=== PATIENT | male | born 1975 | race Caucasian/White ===

== ENCOUNTER 2018-04-01 13:50 | Inpatient (IN) | payer OTHER ==
[2018-04-01 16:18] VITALS: BMI 54.9
--- NOTE | 2018-04-01 17:35 | HP ---
CIWA Score Nausea/Vomitin Muscle Tremors: 3 Anxiety: 4-Mod. Anxious/Guarded Agitation: 1-Slight > Activity Paroxysmal Sweats: 4-Forehead w/Sweat Beads Orientation: 0-Oriented Tacttile Disturbances: 0-None Auditory Disturbances: 0-None Visual Disturbances: 3-Moderate Sensitivity Headache: 2-Mild CIWA-Ar Total Score: 20 - Admission Criteria OASAS Guidelines: Admission for Medically Managed Detox: Requires at least one of the followin. CIWA greater than 12 2. Seizures within the past 24 hours 3. Delirium tremens within the past 24 hours 4. Hallucinations within the past 24 hours 5. Acute intervention needed for co occurring medical disorder 6. Acute intervention needed for co occurring psychiatric disorder 7. Severe withdrawal that cannot be handled at a lower level of care (continued vomiting, continued diarrhea, abnormal vital signs) requiring intravenous medication and/or fluids 8. Admission ROS S - HPI Chief Complaint: "I'm Tired of This Life. I'm Tired of Getting Drunk and Using Alcohol and Drugs. I need to get My Life Together." Patient is here for Detox from Alcohol and Heroin. Allergies/Adverse Reactions: Allergies Allergy/AdvReac Type Severity Reaction Status Date / Time shellfish derived Allergy Intermediate Hives Verified 04/01/18 16:39 No Known Drug Allergies Allergy Verified 04/01/18 17:37 History of Present Illness: Patient is a 42 YO male here for Detox from Alcohol and Heroin. This is patient' s first Detox admission at [facility]. Patient had a previous Detox admission at [facility] ( [place], [place]) in 2018. Patient is currently a client at [facility] ([place], [place]). Daily Dose: 110 mg; Last Day Medicated: Today, 04/01/2018. VERIFICATION PENDING. [facility] I-Stop Registry Reviewed: No Controlled Substance Prescriptions noted for Patient over last 12 months. Exam Limitations: No Limitations - Ebola screening Have you traveled outside of the country in the last 21 days: No Have you had contact with anyone from an Ebola affected area: No Have you been sick,other than usual withdrawal symptoms: No Do you have a fever: No - Review of Systems Constitutional: Chills, Diaphoresis, Fever, Loss of Appetite, Malaise, Night Sweats, Changes in sleep, Unintentional Wgt. Loss (Lost approx. 32 lbs. over last 3 months.) EENT: reports: Blurred Vision Respiratory: reports: Shortness of Breath (Patient reprots that this Only Occurs When He is using Drugs.) GI: reports: Constipated, Nausea, Poor Appetite, Abdominal cramping : reports: No Symptoms Reported Musculoskeletal: reports: Joint Pain (Patient Reprots "Chronic Arthritis Pain of All Joints."), Joint Stiffness Integumentary: reports: No Symptoms Reported Neuro: reports: Headache, Tremors Endocrine: reports: No Symptoms Reported Hematology: reports: No Symptoms Reported Psychiatric: reports: Judgement Intact, Mood/Affect Appropiate, Orientated x3, Anxious Other Systems: Reviewed and Negative Patient History - Patient Medical History Hx Anemia: No Hx Asthma: Yes (Pt. Reports that this is exacerbated only when using drugs.) Hx Chronic Obstructive Pulmonary Disease (COPD): No Hx Cancer: No Hx Cardiac Disorders: No Hx Congestive Heart Failure: No Hx Hypertension: Yes (ON MEDS) Hx Hypercholesterolemia: No Hx Pacemaker: No HX Cerebrovascular Accident: No Hx Seizures: No Hx Dementia: No Hx Diabetes: Yes (TYPE II; ON MEDS) Hx Gastrointestinal Disorders: No Hx Liver Disease: No Hx Genitourinary Disorders: No Hx Sexually Transmitted Disorders: No Hx Renal Disease (ESRD): No Hx Thyroid Disease: No Hx Human Immunodeficiency Virus (HIV): No (Last Tested: 10/2017: NEGATIVE.) Hx Hepatitis C: No (Last Tested > 1 year ago: NEGATIVE.) Hx Depression: Yes (And Anxiety; Generally Exacerbated by Drug Use.) Hx Suicide Attempt: No (PATIENT DENIES CURRENT SI / HI.) Hx Bipolar Disorder: Yes (No Current Medication, Unable To Recall Names of Past Medication.) Hx Schizophrenia: No Other Medical History: DENIES. - Patient Surgical History Past Surgical History: Yes Hx Neurologic Surgery: No Hx Cataract Extraction: No Hx Cardiac Surgery: No Hx Lung Surgery: No Hx Breast Surgery: No Hx Breast Biopsy: No Hx Abdominal Surgery: Yes (gastric bypass- 09/2003) Hx Appendectomy: No Hx Cholecystectomy: Yes (09/2003) Hx Genitourinary Surgery: No Hx Section: No Hx Orthopedic Surgery: No Other Surgical History: DENIES. Anesthesia Reaction: No - PPD History Previous Implant?: No Documented Results: Positive w/o proof (Patient Completed a Full Course of Antibiotic Treatment in [id number].) Implanted On Prior [facility] Admission?: No PPD to be Administered?: No - Reproductive History Patient is a Female of Child Bearing Age (11 -55 yrs old): No (PATIENT IS MALE.) - Smoking Cessation Smoking history: Current every day smoker Have you smoked in the past 12 months: Yes Aproximately how many cigarettes per day: 20 Cigars Per Day: 0 Hx Chewing Tobacco Use: No Initiated information on smoking cessation: Yes 'Breaking Loose' booklet given: 04/01/18 (GIVEN ON UNIT.) - Substance & Tx. History Hx Alcohol Use: Yes Hx Substance Use: Yes Substance Use Type: Alcohol, Cocaine, Heroin, Marijuana Hx Substance Use Treatment: Yes (Detox Admission at [facility] ([place], [place]) in 2018.) - Substances Abused Alcohol Route: Oral Frequency: Daily Amount used: beer- 24oz- 15daily Age of first use: 14 Date of Last Use: 04/01/18 Heroin Route: Inhalation Frequency: Daily Amount used: 10bags Age of first use: 18 Date of Last Use: 04/01/18 Crack Route: Smoking Frequency: Daily Amount used: $ 100 Age of first use: 39 Date of Last Use: 03/31/18 Marijuana/Hashish Route: Smoking Frequency: Daily Amount used: 2-3 Blunts. Age of first use: 14 Date of Last Use: 03/31/18 Family Disease History - Family Disease History Family Disease History: Diabetes: Grandparent (Cardiac Disease.), Father (HTN; Cardiac Disease.), Mother (HTN; Cardiac Disease.), Heart Disease: Grandparent, Father, Mother Admission Physical Exam [facility] - Vital Signs Vital Signs: Vital Signs - 24 hr 04/01/18 16:17 Temperature 97.7 F Pulse Rate 86 Respiratory 20 Rate Blood Pressure 108/66 - Physical General Appearance: Yes: No Apparent Distress, Nourished, Appropriately Dressed , Tremorous, Sweating, Anxious HEENTM: Yes: Hearing grossly Normal, Normocephalic, Normal Voice, MARLON, Pharynx Normal Respiratory: Yes: Chest Non-Tender, Lungs Clear, No Respiratory Distress, No Accessory Muscle Use Neck: Yes: No masses,lesions,Nodules, Supple, Trachea in good position Breast: Yes: Breast Exam Deferred Cardiology: Yes: Regular Rhythm, Regular Rate, S1, S2 Abdominal: Yes: Normal Bowel Sounds, Non Tender, Soft, Protuberent Genitourinary: Yes: Within Normal Limits Back: Yes: Decreased Range of Motion Musculoskeletal: Yes: Gait Steady, Joint Stiffness Extremities: Yes: Normal Capillary Refill, Normal Range of Motion, Tremors Neurological: Yes: Fully Oriented, Alert, Normal Mood/Affect, Normal Response Integumentary: Yes: Normal Color, Dry, Warm Lymphatic: Yes: Within Normal Limits - Diagnostic (1) Alcohol dependence with uncomplicated withdrawal Current Visit: Yes Status: Acute (2) Methadone maintenance therapy patient Current Visit: Yes Status: Chronic (3) Cocaine dependence, uncomplicated Current Visit: Yes Status: Chronic (4) Cannabis dependence, uncomplicated Current Visit: Yes Status: Chronic (5) Nicotine dependence Current Visit: Yes Status: Chronic Qualifiers: Nicotine product type: cigarettes Substance use status: uncomplicated Qualified Code(s): F17.210 - Nicotine dependence, cigarettes, uncomplicated (6) Asthma Current Visit: Yes Status: Chronic Qualifiers: Asthma severity: mild Asthma persistence: intermittent Asthma complication type: uncomplicated Qualified Code(s): J45.20 - Mild intermittent asthma, uncomplicated (7) Hypertension Current Visit: Yes Status: Chronic Qualifiers: Hypertension type: essential hypertension Qualified Code(s): I10 - Essential (primary) hypertension (8) History of bipolar disorder Current Visit: Yes Status: Suspected (9) Type II diabetes mellitus Current Visit: Yes Status: Chronic Qualifiers: Diabetes mellitus middle or intermediate school principal insulin use: without middle or intermediate school principal use Diabetes mellitus complication status: with unspecified complications Qualified Code(s) : E11.8 - Type 2 diabetes mellitus with unspecified complications Cleared for Admission S - Detox or Rehab [facility] Level of Care: Medically Managed Detox Regimen/Protocol: Librium [facility] Breath Alcohol Content Breath Alcohol Content: 0 Urine Drug Screen - Results Drug Screen Negative: No Urine Drug Screen Results: [place]-Cocaine, OPI-Opiates, BZO-Benzodiazepines, MTD- Methadone
[2018-04-01] MEDS ORDERED: MENTHOL/PHENOL 1 EACH UD MM PRN (18:12)
[2018-04-01] MEDS ORDERED: ACETAMINOPHEN 325 MG TABLET (FP) PO PRN (18:12)
[2018-04-01] MEDS ORDERED: LOPERAMIDE HCL 2 MG CAPSULE PO PRN (18:12)
[2018-04-01] MEDS ORDERED: MAGNESIUM CITRATE 300 ML BOTTLE PO PRN (18:12)
[2018-04-01] MEDS ORDERED: guaiFENesin/D-METHORPHAN HB 10 ML UNIT-DOSE CUPS PO PRN (18:12)
[2018-04-01] MEDS ORDERED: IBUPROFEN 400 MG TABLET (FP) PO PRN (18:12)
[2018-04-01] MEDS ORDERED: MAG HYDROX/AL HYDROX/SIMETH 30 ML UNIT-DOSE CUP PO PRN (18:12)
[2018-04-01] MEDS ORDERED: NICOTINE POLACRILEX 2 MG GUM BC PRN (18:12)
[2018-04-01] MEDS ORDERED: MAGNESIUM HYDROX 2400MG/30ML ORAL SUSPENSION 30 ML CUP PO PRN (18:12)
[2018-04-01] MEDS ORDERED: P-EPHED 60MG/TRIPROLIDI 2.5MG TABLET PO PRN (18:12)
[2018-04-01] MEDS ORDERED: ALBUTEROL SO4 8 GM HFA INHALER IH PRN (18:16)
[2018-04-01] MEDS ORDERED: chlordiazePOXIDE HCL 25 MG CAPSULE PO ONE (18:45)
[2018-04-01] MEDS: NICOTINE 21 MG/24 HOURS TOPICAL PATCH TD SCH (19:50)
[2018-04-01] MEDS: chlordiazePOXIDE HCL 25 MG CAPSULE PO SCH (22:41)
[2018-04-01] MEDS: THIAMINE HCL 100 MG TABLET (FP) PO SCH (22:41)
[2018-04-01] MEDS: MELATONIN 5 MG TABLETS PO PRN (22:42)
[2018-04-01] MEDS: SENNOSIDES/DOCUSATE COMBO (SENNA PLUS) TABLET (UD) PO SCH (23:27)
[2018-04-02] MEDS: chlordiazePOXIDE HCL 25 MG CAPSULE PO PRN ×2 (03:42→12:51)
[2018-04-02] MEDS: chlordiazePOXIDE HCL 25 MG CAPSULE PO SCH ×4 (05:40→22:38)
[2018-04-02] MEDS: metFORMIN HCL 500 MG TABLET (FP) PO SCH ×2 (06:10→19:25)
[2018-04-02] MEDS ORDERED: METHADONE HCL 10 MG TABLET PO ONE (08:58)
[2018-04-02] MEDS ORDERED: METHADONE 80 MG, METHADONE 30 MG PO ONE (09:15)
--- NOTE | 2018-04-02 09:42 | CONSULT ---
[facility] Psychiatric Consult - Data Date of interview: 04/02/18 Admission source: [facility] Identifying data: This is a 42 years old obese male, single, with no children, homeless, unemployed, on PA support, with no psychiatric hospitalization history , history of [id number] Disorder, reports long history of Crack, Alcohol, Cannabis , Heroin and Nicotine dependence, reports withdrawal synptoms and seeking ddetox. Substance Abuse History: - Smoking Cessation. Smoking history: Current every day smoker. Have you smoked in the past 12 months: Yes. Aproximately how many cigarettes per day: 20. Cigars Per Day: 0. Hx Chewing Tobacco Use: No. Initiated information on smoking cessation: Yes. 'Breaking Loose' booklet given : 04/01/18 (GIVEN ON UNIT.). - Substance & Tx. History. Hx Alcohol Use: Yes. Hx Substance Use: Yes. Substance Use Type: Alcohol, Cocaine, Heroin, Marijuana. Hx Substance Use Treatment: Yes (Detox Admission at [place], [place]) in 2018.). - Substances Abused. Alcohol. Route: Oral. Frequency: Daily. Amount used: beer- 24oz- 15daily. Age of first use: 14. Date of Last Use: 04/01/18. Heroin. Route: Inhalation. Frequency: Daily. Amount used: 10bags. Age of first use: 18. Date of Last Use: 04/01/18. Crack. Route: Smoking. Frequency: Daily. Amount used: $ 100. Age of first use: 39. Date of Last Use: 03/31/18. Marijuana/Hashish. Route: Smoking. Frequency: Daily. Amount used: 2-3 Blunts. Age of first use: 14. Date of Last Use: 03/31/18 Medical History: Asthma, DM-II, HTN, MMTP 110MG PEWR DAY Psychiatric History: Patient reports history of depression and anxiety, as per chart has Bipolar Disorder history, reports no medications taking for a long time, reports no psychiatric hospitalization history, no ssuicidal, homicidal history as well. Patient is poor historyan, and currently at MMTP on 110mg per day. Physical/Sexual Abuse/Trauma History: Unclear Additional Comment: Observation. Detox Unit Care Protocol Mental Status Exam - Mental Status Exam Alert and Oriented to: Person Cognitive Function: Fair Patient Appearance: Unkempt Mood: Sad Affect: Flat Patient Behavior: Sedated Speech Pattern: Delayed Voice Loudness: Mildly Soft/Quiet Thought Process: Circumstantial Thought Disorder: Being Controlled Hallucinations: Denies Suicidal Ideation: Denies Homicidal Ideation: Denies Insight/Judgement: Fair Sleep: Difficulty falling asleep Appetite: Fair, Weight gain Gait/Station: Shuffling Additional Comments: Observation. Detox Unit Care Protocol Psychiatric Findings - Problem List ([place] 1, 2,3) (1) Alcohol dependence with uncomplicated withdrawal Current Visit: Yes Status: Acute (2) Asthma Current Visit: Yes Status: Chronic Qualifiers: Asthma severity: mild Asthma persistence: intermittent Asthma complication type: uncomplicated Qualified Code(s): J45.20 - Mild intermittent asthma, uncomplicated (3) Cannabis dependence, uncomplicated Current Visit: Yes Status: Chronic (4) Cocaine dependence, uncomplicated Current Visit: Yes Status: Chronic (5) Hypertension Current Visit: Yes Status: Chronic Qualifiers: Hypertension type: essential hypertension Qualified Code(s): I10 - Essential (primary) hypertension (6) Methadone maintenance therapy patient Current Visit: Yes Status: Chronic (7) Nicotine dependence Current Visit: Yes Status: Chronic Qualifiers: Nicotine product type: cigarettes Substance use status: uncomplicated Qualified Code(s): F17.210 - Nicotine dependence, cigarettes, uncomplicated (8) History of bipolar disorder Current Visit: Yes Status: Suspected - Initial Treatment Plan Initial Treatment Plan: Observation. Detox Unit Care Protocol
[2018-04-02 10:07] LABS: HEMATOCRIT 37.2 % (35.4-49); HEMOGLOBIN 11.9 GM/dL (11.7-16.9); MCH 24.7 pg (25.7-33.7); MEAN CELL VOLUME 77.1 fl (80-96); MEAN PLT VOLUME 8.9 fl (7.5-11.1); PLATELET COUNT 221 K/MM3 (134-434); RBC 4.83 M/mm3 (4.00-5.60); RDW 16.3 % (11.9-15.9); WHITE BLOOD COUNT 8.4 K/mm3 (4.0-10.0)
[2018-04-02 10:18] LABS: ALBUMIN 2.8 g/dl (3.4-5.0); ALK PHOS 77 U/L (45-117); ANION GAP 8 MMOL/L (8-16); BILIRUBIN,TOTAL 0.2 mg/dL (0.2-1); BLOOD UREA NITROGEN 11 mg/dL (7-18); CALCIUM 8.2 mg/dL (8.5-10.1); CHLORIDE 101 mmol/L (98-107); CO2 28 mmol/L (21-32); GLUCOSE,RANDOM 220 mg/dL (74-106); POTASSIUM 4.2 mmol/L (3.5-5.1); SGOT/AST 14 U/L (15-37); SGPT/ALT 21 U/L (13-61); SODIUM 137 mmol/L (136-145)
[2018-04-02] MEDS: LISINOPRIL 10 MG TABLET (FP) PO SCH (10:40)
[2018-04-02] MEDS: PRENATAL VITAMINS W/ FOLIC ACID TABLET (FP) PO SCH (10:40)
[2018-04-02] MEDS: NICOTINE 21 MG/24 HOURS TOPICAL PATCH TD SCH (10:41)
[2018-04-02] MEDS ORDERED: METHADONE HCL 40 MG DISPERSABLE TABLET ONE (10:42)
[2018-04-02] MEDS ORDERED: METHADONE HCL 10 MG TABLET ONE (10:42)
[2018-04-02] MEDS: SENNOSIDES/DOCUSATE COMBO (SENNA PLUS) TABLET (UD) PO SCH ×2 (10:44→22:38)
[2018-04-02] MEDS ORDERED: PNEUMOC 13-VAL CONJ-DIP CRM/PF 0.5 ML DISP.SYRIN IM ONE (12:00)
[2018-04-02] MEDS ORDERED: FLU VACCINE QUAD 60 MCG/0.5 ML (MDV 18-19) IM ONE (12:00)
[2018-04-02] MEDS ORDERED: PNEUMOCOCCAL 23 VACCINE 0.5 ML VIAL IM ONE (12:00)
[2018-04-02] MEDS: CYCLOBENZAPRINE HCL 10 MG TABLET (FP) PO PRN (12:51)
--- NOTE | 2018-04-02 13:58 | PN ---
[facility] CIWA - CIWA Score Nausea/Vomitin-No Nausea/No Vomiting Muscle Tremors: 4-Moderate,w/Arms Extend Anxiety: 4-Mod. Anxious/Guarded Agitation: 1-Slight > Activity Paroxysmal Sweats: 3 Orientation: 0-Oriented Tacttile Disturbances: 0-None Auditory Disturbances: 1-Very Mild Visual Disturbances: 2-Mild Sensitivity Headache: 0-None Present CIWA-Ar Total Score: 15 S Progress Note (SOAP) Subjective: Chills, Interrupted Sleep, Stomach Cramping, Body Aches, Tremors, Sweating. Objective: PATIENT A & O X 3, OBSERVED AMBULATING ON UNIT. IN NO ACUTE DISTRESS. 04/02/18 13:56 Vital Signs Temperature 97.9 F 04/02/18 13:34 Pulse Rate 88 04/02/18 13:34 Respiratory Rate 16 04/02/18 13:34 Blood Pressure 121/80 04/02/18 13:34 O2 Sat by Pulse Oximetry (%) Laboratory Tests 04/01/18 04/02/18 04/02/18 16:57 05:39 07:00 WBC RBC Hgb Hct MCV MCH MCHC RDW Plt Count MPV Sodium Potassium Chloride Carbon Dioxide Anion Gap BUN Creatinine Creat Clearance w eGFR POC Glucometer 187 170 Random Glucose Calcium Total Bilirubin AST ALT Alkaline Phosphatase Total Protein Albumin RPR Titer HIV 1&2 Antibody Screen Negative HIV P24 Antigen Negative 04/02/18 04/02/18 04/02/18 07:00 07:00 07:00 WBC 8.4 RBC 4.83 Hgb 11.9 Hct 37.2 MCV 77.1 L MCH 24.7 L MCHC 32.0 RDW 16.3 H Plt Count 221 MPV 8.9 Sodium 137 Potassium 4.2 Chloride 101 Carbon Dioxide 28 Anion Gap 8 BUN 11 Creatinine 1.0 Creat Clearance w eGFR > 60 POC Glucometer Random Glucose 220 H Calcium 8.2 L Total Bilirubin 0.2 AST 14 L ALT 21 Alkaline Phosphatase 77 Total Protein 6.0 L Albumin 2.8 L RPR Titer Nonreactive HIV 1&2 Antibody Screen HIV P24 Antigen LABS NOTED. HCV AB RESULT PENDING. 04/02/18 13:57 Assessment: 04/02/18 13:56 WITHDRAWAL SYMPTOMS. 04/02/18 13:57 Plan: CONTINUE DETOX. INCREASE DAILY PO FLUID INTAKE. PRN FLEXERIL PO FOR BODY ACHES / MUSCLE SPASMS.
[2018-04-02] MEDS: THIAMINE HCL 100 MG TABLET (FP) PO SCH (22:38)
[2018-04-03] MEDS: chlordiazePOXIDE HCL 25 MG CAPSULE PO PRN ×2 (02:17→15:01)
[2018-04-03] MEDS ORDERED: METHADONE HCL 10 MG TABLET ONE (04:54)
[2018-04-03] MEDS ORDERED: METHADONE HCL 40 MG DISPERSABLE TABLET ONE (04:54)
[2018-04-03] MEDS ORDERED: METHADONE HCL 40 MG DISPERSABLE TABLET PO SCH (06:00)
[2018-04-03] MEDS: METHADONE 80 MG, METHADONE 30 MG PO SCH (06:20)
[2018-04-03] MEDS: chlordiazePOXIDE HCL 25 MG CAPSULE PO SCH ×3 (06:20→17:20)
[2018-04-03] MEDS: metFORMIN HCL 500 MG TABLET (FP) PO SCH ×2 (06:24→17:20)
[2018-04-03] MEDS: CYCLOBENZAPRINE HCL 10 MG TABLET (FP) PO PRN (10:53)
[2018-04-03] MEDS: SENNOSIDES/DOCUSATE COMBO (SENNA PLUS) TABLET (UD) PO SCH ×2 (10:53→22:42)
[2018-04-03] MEDS: LISINOPRIL 10 MG TABLET (FP) PO SCH (10:53)
[2018-04-03] MEDS: PRENATAL VITAMINS W/ FOLIC ACID TABLET (FP) PO SCH (10:53)
[2018-04-03] MEDS: NICOTINE 21 MG/24 HOURS TOPICAL PATCH TD SCH (11:46)
--- NOTE | 2018-04-03 12:20 | PN ---
S CIWA - CIWA Score Nausea/Vomitin-No Nausea/No Vomiting Muscle Tremors: 4-Moderate,w/Arms Extend Anxiety: 4-Mod. Anxious/Guarded Agitation: 3 Paroxysmal Sweats: 3 Orientation: 0-Oriented Tacttile Disturbances: 0-None Auditory Disturbances: 0-None Visual Disturbances: 0-None Headache: 0-None Present CIWA-Ar Total Score: 14 [facility] Progress Note (SOAP) Subjective: agitation sweats back pain interrupted sleep i want a regular diet Objective: 04/03/18 12:19 Vital Signs Temperature 99.1 F 04/03/18 09:16 Pulse Rate 86 04/03/18 09:16 Respiratory Rate 18 04/03/18 09:16 Blood Pressure 141/91 04/03/18 09:16 O2 Sat by Pulse Oximetry (%) Laboratory Tests 04/01/18 04/02/18 04/02/18 16:57 05:39 07:00 WBC RBC Hgb Hct MCV MCH MCHC RDW Plt Count MPV Sodium Potassium Chloride Carbon Dioxide Anion Gap BUN Creatinine Creat Clearance w eGFR POC Glucometer 187 170 Random Glucose Calcium Total Bilirubin AST ALT Alkaline Phosphatase Total Protein Albumin RPR Titer Hep C Ab Diagnostic HIV 1&2 Antibody Screen Negative HIV P24 Antigen Negative 04/02/18 04/02/18 04/02/18 07:00 07:00 07:00 WBC 8.4 RBC 4.83 Hgb 11.9 Hct 37.2 MCV 77.1 L MCH 24.7 L MCHC 32.0 RDW 16.3 H Plt Count 221 MPV 8.9 Sodium 137 Potassium 4.2 Chloride 101 Carbon Dioxide 28 Anion Gap 8 BUN 11 Creatinine 1.0 Creat Clearance w eGFR > 60 POC Glucometer Random Glucose 220 H Calcium 8.2 L Total Bilirubin 0.2 AST 14 L ALT 21 Alkaline Phosphatase 77 Total Protein 6.0 L Albumin 2.8 L RPR Titer Hep C Ab Diagnostic 0.2 HIV 1&2 Antibody Screen HIV P24 Antigen 04/02/18 04/02/18 04/03/18 07:00 16:19 11:48 WBC RBC Hgb Hct MCV MCH MCHC RDW Plt Count MPV Sodium Potassium Chloride Carbon Dioxide Anion Gap BUN Creatinine Creat Clearance w eGFR POC Glucometer 162 195 Random Glucose Calcium Total Bilirubin AST ALT Alkaline Phosphatase Total Protein Albumin RPR Titer Nonreactive Hep C Ab Diagnostic HIV 1&2 Antibody Screen HIV P24 Antigen aaox3 ambulating no acute distress Assessment: 04/03/18 12:19 withdrawal sx Plan: continue detox increase fluids diet changes to regular
[2018-04-03] MEDS ORDERED: COLLOIDAL OATMEAL 1 BAR EACH TP PRN (15:42)
[2018-04-03] MEDS: THIAMINE HCL 100 MG TABLET (FP) PO SCH (22:41)
[2018-04-03] MEDS: chlordiazePOXIDE 5 MG CAPSULE PO SCH (22:42)
[2018-04-03] MEDS: MELATONIN 5 MG TABLETS PO PRN (22:43)
[2018-04-04] MEDS ORDERED: METHADONE HCL 40 MG DISPERSABLE TABLET ONE (05:07)
[2018-04-04] MEDS ORDERED: METHADONE HCL 10 MG TABLET ONE (05:07)
[2018-04-04] MEDS: METHADONE 80 MG, METHADONE 30 MG PO SCH (05:35)
[2018-04-04] MEDS: chlordiazePOXIDE 5 MG CAPSULE PO SCH ×3 (05:36→18:21)
[2018-04-04] MEDS: metFORMIN HCL 500 MG TABLET (FP) PO SCH ×2 (06:09→18:21)
[2018-04-04] MEDS: SENNOSIDES/DOCUSATE COMBO (SENNA PLUS) TABLET (UD) PO SCH (10:19)
[2018-04-04] MEDS: LISINOPRIL 10 MG TABLET (FP) PO SCH (10:19)
[2018-04-04] MEDS: NICOTINE 21 MG/24 HOURS TOPICAL PATCH TD SCH (10:19)
[2018-04-04] MEDS: PRENATAL VITAMINS W/ FOLIC ACID TABLET (FP) PO SCH (10:19)
[2018-04-04] MEDS: CYCLOBENZAPRINE HCL 10 MG TABLET (FP) PO PRN (10:23)
--- NOTE | 2018-04-04 12:07 | PN ---
[facility] Progress Note (SOAP) Subjective: Body aches,shakes and sweats and interrupted sleep Objective: 04/04/18 12:05 Vital Signs 04/04/18 04/04/18 06:00 09:42 Temperature 97.9 F 98.3 F Pulse Rate 85 73 Respiratory 20 20 Rate Blood Pressure 118/60 96/56 L Laboratory Last Values WBC 8.4 K/mm3 (4.0-10.0) 04/02/18 07:00 RBC 4.83 M/mm3 (4.00-5.60) 04/02/18 07:00 Hgb 11.9 GM/dL (11.7-16.9) 04/02/18 07:00 Hct 37.2 % (35.4-49) 04/02/18 07:00 MCV 77.1 fl (80-96) L 04/02/18 07:00 MCH 24.7 pg (25.7-33.7) L 04/02/18 07:00 MCHC 32.0 g/dl (32.0-35.9) 04/02/18 07:00 RDW 16.3 % (11.9-15.9) H 04/02/18 07:00 Plt Count 221 K/MM3 (134-434) 04/02/18 07:00 MPV 8.9 fl (7.5-11.1) 04/02/18 07:00 Sodium 137 mmol/L (136-145) 04/02/18 07:00 Potassium 4.2 mmol/L (3.5-5.1) 04/02/18 07:00 Chloride 101 mmol/L (98-107) 04/02/18 07:00 Carbon Dioxide 28 mmol/L (21-32) 04/02/18 07:00 Anion Gap 8 MMOL/L (8-16) 04/02/18 07:00 BUN 11 mg/dL (7-18) 04/02/18 07:00 Creatinine 1.0 mg/dL (0.55-1.3) 04/02/18 07:00 Creat Clearance w eGFR > 60 (>60) 04/02/18 07:00 POC Glucometer 184 UNITS (80-120) 04/04/18 05:35 Random Glucose 220 mg/dL (74-106) H 04/02/18 07:00 Calcium 8.2 mg/dL (8.5-10.1) L 04/02/18 07:00 Total Bilirubin 0.2 mg/dL (0.2-1) 04/02/18 07:00 AST 14 U/L (15-37) L 04/02/18 07:00 ALT 21 U/L (13-61) 04/02/18 07:00 Alkaline Phosphatase 77 U/L (45-117) 04/02/18 07:00 Total Protein 6.0 g/dl (6.4-8.2) L 04/02/18 07:00 Albumin 2.8 g/dl (3.4-5.0) L 04/02/18 07:00 RPR Titer Nonreactive (NONREACTIVE) 04/02/18 07:00 Hep C Ab Diagnostic 0.2 s/co ratio (0.0-0.9) 04/02/18 07:00 HIV 1&2 Antibody Screen Negative 04/02/18 07:00 HIV P24 Antigen Negative 04/02/18 07:00 Labs noted-no panic values Assessment: 04/04/18 12:07 Withdrawal sx Plan: Continue detox
[2018-04-04] MEDS: chlordiazePOXIDE HCL 25 MG CAPSULE PO PRN (18:22)
[2018-04-05] MEDS: chlordiazePOXIDE HCL 10 MG CAPSULE PO SCH ×4 (01:16→23:04)
[2018-04-05] MEDS: THIAMINE HCL 100 MG TABLET (FP) PO SCH ×2 (01:16→23:26)
[2018-04-05] MEDS: SENNOSIDES/DOCUSATE COMBO (SENNA PLUS) TABLET (UD) PO SCH ×3 (01:16→23:26)
[2018-04-05] MEDS ORDERED: METHADONE HCL 10 MG TABLET ONE (05:39)
[2018-04-05] MEDS ORDERED: METHADONE HCL 40 MG DISPERSABLE TABLET ONE (05:39)
[2018-04-05] MEDS: metFORMIN HCL 500 MG TABLET (FP) PO SCH ×2 (06:16→23:04)
[2018-04-05] MEDS: METHADONE 80 MG, METHADONE 30 MG PO SCH (06:16)
[2018-04-05] MEDS: PRENATAL VITAMINS W/ FOLIC ACID TABLET (FP) PO SCH (10:39)
[2018-04-05] MEDS: NICOTINE 21 MG/24 HOURS TOPICAL PATCH TD SCH (10:40)
[2018-04-05] MEDS: LISINOPRIL 10 MG TABLET (FP) PO SCH (10:41)
[2018-04-05] MEDS: CYCLOBENZAPRINE HCL 10 MG TABLET (FP) PO PRN ×2 (10:44→23:06)
--- NOTE | 2018-04-05 15:01 | PN ---
[facility] Progress Note (SOAP) Subjective: Body ache, sweating, chills, tremor, interrupted sleep. Objective: 04/05/18 14:57 Last Vital Signs Temp Pulse Resp BP Pulse Ox 98.2 F 76 18 110/52 L 04/05/18 14:26 04/05/18 14:26 04/05/18 14:26 04/05/18 14:26 Laboratory Tests 04/01/18 04/02/18 04/02/18 16:57 05:39 07:00 WBC RBC Hgb Hct MCV MCH MCHC RDW Plt Count MPV Sodium Potassium Chloride Carbon Dioxide Anion Gap BUN Creatinine Creat Clearance w eGFR POC Glucometer 187 170 Random Glucose Calcium Total Bilirubin AST ALT Alkaline Phosphatase Total Protein Albumin RPR Titer Hep C Ab Diagnostic HIV 1&2 Antibody Screen Negative HIV P24 Antigen Negative 04/02/18 04/02/18 04/02/18 07:00 07:00 07:00 WBC 8.4 RBC 4.83 Hgb 11.9 Hct 37.2 MCV 77.1 L MCH 24.7 L MCHC 32.0 RDW 16.3 H Plt Count 221 MPV 8.9 Sodium 137 Potassium 4.2 Chloride 101 Carbon Dioxide 28 Anion Gap 8 BUN 11 Creatinine 1.0 Creat Clearance w eGFR > 60 POC Glucometer Random Glucose 220 H Calcium 8.2 L Total Bilirubin 0.2 AST 14 L ALT 21 Alkaline Phosphatase 77 Total Protein 6.0 L Albumin 2.8 L RPR Titer Hep C Ab Diagnostic 0.2 HIV 1&2 Antibody Screen HIV P24 Antigen 04/02/18 04/02/18 04/03/18 07:00 16:19 11:48 WBC RBC Hgb Hct MCV MCH MCHC RDW Plt Count MPV Sodium Potassium Chloride Carbon Dioxide Anion Gap BUN Creatinine Creat Clearance w eGFR POC Glucometer 162 195 Random Glucose Calcium Total Bilirubin AST ALT Alkaline Phosphatase Total Protein Albumin RPR Titer Nonreactive Hep C Ab Diagnostic HIV 1&2 Antibody Screen HIV P24 Antigen 04/03/18 04/04/18 04/04/18 16:33 05:35 18:19 WBC RBC Hgb Hct MCV MCH MCHC RDW Plt Count MPV Sodium Potassium Chloride Carbon Dioxide Anion Gap BUN Creatinine Creat Clearance w eGFR POC Glucometer 129 184 202 Random Glucose Calcium Total Bilirubin AST ALT Alkaline Phosphatase Total Protein Albumin RPR Titer Hep C Ab Diagnostic HIV 1&2 Antibody Screen HIV P24 Antigen 04/05/18 06:14 WBC RBC Hgb Hct MCV MCH MCHC RDW Plt Count MPV Sodium Potassium Chloride Carbon Dioxide Anion Gap BUN Creatinine Creat Clearance w eGFR POC Glucometer 246 Random Glucose Calcium Total Bilirubin AST ALT Alkaline Phosphatase Total Protein Albumin RPR Titer Hep C Ab Diagnostic HIV 1&2 Antibody Screen HIV P24 Antigen Labs reviewed: elevated glucose due to DM Assessment: 04/05/18 14:58 Withdrawal symptoms Plan: Continue detox Encouraged PO water hydration Educated on importance of lifestyle modification (adherence to diabetic diet, exercise as tolerated to lose weight, weight loss intervention such as gastric band), patient stated he had gastric bypass surgery 14 years ago then later had his gall bladder removed then he began gaining the weight. Patient instructed to follow up with his PCP for further intervention.
[2018-04-05] MEDS: MELATONIN 5 MG TABLETS PO PRN (23:06)
[2018-04-06] MEDS ORDERED: METHADONE HCL 10 MG TABLET ONE (05:49)
[2018-04-06] MEDS ORDERED: METHADONE HCL 40 MG DISPERSABLE TABLET ONE (05:49)
[2018-04-06] MEDS: METHADONE 80 MG, METHADONE 30 MG PO SCH (05:50)
[2018-04-06] MEDS: metFORMIN HCL 500 MG TABLET (FP) PO SCH (06:38)
[2018-04-06] MEDS: LISINOPRIL 10 MG TABLET (FP) PO SCH (10:23)
[2018-04-06] MEDS: PRENATAL VITAMINS W/ FOLIC ACID TABLET (FP) PO SCH (10:23)
[2018-04-06] MEDS: NICOTINE 21 MG/24 HOURS TOPICAL PATCH TD SCH (10:24)
[2018-04-06] MEDS: SENNOSIDES/DOCUSATE COMBO (SENNA PLUS) TABLET (UD) PO SCH (10:25)
[2018-04-06 13:24] VITALS: BP 129/57; PULSE 78; TEMP 97.9
--- NOTE | 2018-04-06 14:48 | DS ---
[facility] Detox Discharge Summary Admission Date: 04/01/18 Discharge Date: 04/06/18 - History Present History: Alcohol Dependence, Opioid Dependence, MMTP Additional Comments: PATIENT GOING TO [facility] ([place], [place]) FOR AFTERCARE. PATIENT WAS DISCHARGED FROM DETOX UNIT TO BE TAKEN OVER TO REHAB UNIT IN STABLE MEDICAL CONDITION. Pertinent Past History: Type II DM, HTN, M.M.T.P., History of Depression, Anxiety, - Physical Exam Results Vital Signs: Vital Signs Temperature 97.9 F 04/06/18 13:23 Pulse Rate 78 04/06/18 13:23 Respiratory Rate 16 04/06/18 13:23 Blood Pressure 129/57 L 04/06/18 13:23 O2 Sat by Pulse Oximetry (%) Pertinent Admission Physical Exam Findings: WITHDRAWAL SYMPTOMS. Laboratory Tests 04/01/18 04/02/18 04/02/18 16:57 05:39 07:00 WBC RBC Hgb Hct MCV MCH MCHC RDW Plt Count MPV Sodium Potassium Chloride Carbon Dioxide Anion Gap BUN Creatinine Creat Clearance w eGFR POC Glucometer 187 170 Random Glucose Calcium Total Bilirubin AST ALT Alkaline Phosphatase Total Protein Albumin RPR Titer Hep C Ab Diagnostic HIV 1&2 Antibody Screen Negative HIV P24 Antigen Negative 04/02/18 04/02/18 04/02/18 07:00 07:00 07:00 WBC 8.4 RBC 4.83 Hgb 11.9 Hct 37.2 MCV 77.1 L MCH 24.7 L MCHC 32.0 RDW 16.3 H Plt Count 221 MPV 8.9 Sodium 137 Potassium 4.2 Chloride 101 Carbon Dioxide 28 Anion Gap 8 BUN 11 Creatinine 1.0 Creat Clearance w eGFR > 60 POC Glucometer Random Glucose 220 H Calcium 8.2 L Total Bilirubin 0.2 AST 14 L ALT 21 Alkaline Phosphatase 77 Total Protein 6.0 L Albumin 2.8 L RPR Titer Hep C Ab Diagnostic 0.2 HIV 1&2 Antibody Screen HIV P24 Antigen 04/02/18 04/02/18 04/03/18 07:00 16:19 11:48 WBC RBC Hgb Hct MCV MCH MCHC RDW Plt Count MPV Sodium Potassium Chloride Carbon Dioxide Anion Gap BUN Creatinine Creat Clearance w eGFR POC Glucometer 162 195 Random Glucose Calcium Total Bilirubin AST ALT Alkaline Phosphatase Total Protein Albumin RPR Titer Nonreactive Hep C Ab Diagnostic HIV 1&2 Antibody Screen HIV P24 Antigen 04/03/18 04/04/18 04/04/18 16:33 05:35 18:19 WBC RBC Hgb Hct MCV MCH MCHC RDW Plt Count MPV Sodium Potassium Chloride Carbon Dioxide Anion Gap BUN Creatinine Creat Clearance w eGFR POC Glucometer 129 184 202 Random Glucose Calcium Total Bilirubin AST ALT Alkaline Phosphatase Total Protein Albumin RPR Titer Hep C Ab Diagnostic HIV 1&2 Antibody Screen HIV P24 Antigen 04/05/18 04/05/18 04/06/18 06:14 16:49 05:47 WBC RBC Hgb Hct MCV MCH MCHC RDW Plt Count MPV Sodium Potassium Chloride Carbon Dioxide Anion Gap BUN Creatinine Creat Clearance w eGFR POC Glucometer 246 157 219 Random Glucose Calcium Total Bilirubin AST ALT Alkaline Phosphatase Total Protein Albumin RPR Titer Hep C Ab Diagnostic HIV 1&2 Antibody Screen HIV P24 Antigen LABS NOTED. - Treatment Hospital Course: Detox Protocol Followed, Detoxed Safely, Responded well, Discharged Condition Good, Rehab Referral Accepted Patient has Accepted a Rehab Referral to: [facility] ([place], [place]). - Medication Discharge Medications: Ambulatory Orders Docusate Sodium [Colace] 300 mg PO HS 04/01/18 Lisinopril 10 mg PO DAILY 04/01/18 Metformin HCl [Glucophage] 1,000 mg PO BID 04/01/18 Methadone [Dolophine -] 110 mg PO DAILY 04/01/18 Sennosides [Senna] 2 tab PO HS 04/01/18 - Diagnosis (1) Alcohol dependence with uncomplicated withdrawal Status: Chronic (2) Methadone maintenance therapy patient Status: Chronic (3) Cocaine dependence, uncomplicated Status: Chronic (4) Cannabis dependence, uncomplicated Status: Chronic (5) Nicotine dependence Status: Chronic Qualifiers: Nicotine product type: cigarettes Substance use status: uncomplicated Qualified Code(s): F17.210 - Nicotine dependence, cigarettes, uncomplicated (6) Asthma Status: Chronic Qualifiers: Asthma severity: mild Asthma persistence: intermittent Asthma complication type: uncomplicated Qualified Code(s): J45.20 - Mild intermittent asthma, uncomplicated (7) Hypertension Status: Chronic Qualifiers: Hypertension type: essential hypertension Qualified Code(s): I10 - Essential (primary) hypertension (8) History of bipolar disorder Status: Chronic (9) Type II diabetes mellitus Status: Chronic Qualifiers: Diabetes mellitus halfway insulin use: without long term care social worker use Diabetes mellitus complication status: with unspecified complications Qualified Code(s) : E11.8 - Type 2 diabetes mellitus with unspecified complications - AMA Did Patient Leave Against Medical Advice: No
== END 2018-04-06 02:35 | disposition other institution (70) | DRG 773 ==
LOC: YASAS 13:50 → Y6N 17:27
PROVIDERS: ADMIT Neuromusculoskeletal Medicine & OMM; ATTEND Neuromusculoskeletal Medicine & OMM
PROC: HZ2ZZZZ Detoxification Services for Substance Abuse Treatment (ICD-10-PCS; principal; 2018-04-01)
DX: F10.230 Alcohol dependence with withdrawal, uncomplicated (principal); F14.20 Cocaine dependence, uncomplicated; F12.20 Cannabis dependence, uncomplicated; F11.20 Opioid dependence, uncomplicated; F17.210 Nicotine dependence, cigarettes, uncomplicated; F41.8 Other specified anxiety disorders; F32.9 Major depressive disorder, single episode, unspecified; I10 Essential (primary) hypertension; J45.20 Mild intermittent asthma, uncomplicated; E11.9 Type 2 diabetes mellitus without complications; Z79.84 Long term (current) use of oral hypoglycemic drugs; R76.11 Nonspecific reaction to tuberculin skin test without active tuberculosis; Z86.59 Personal history of other mental and behavioral disorders
CPT/HCPCS: 36415; 71046-TC-FY; 80053; 82962; 85027; 86593; 86803; 87389; 90688; 90732; G0008; G0009

== ENCOUNTER 2018-04-06 15:09 | Inpatient (IN) | payer OTHER ==
--- NOTE | 2018-04-06 14:56 | HP ---
[facility] Rehab Assess/Revision - Admission History Admitted to Rehab from: [facility] Date of Admission to Rehab: 04/06/2018 - Vital signs Vital Signs: NOTED; STABLE. - Findings Detox History & Physical reviewed: Yes Concur with findings: Yes Comments/Additional Findings: PATIENT'S MEDICAL / MEDICATION HISTORY REVIEWED PRIOR TO DISCHARGE FROM DETOX UNIT. PATIENT WAS DISCHARGED FROM DETOX UNIT TO BE TAKEN TO REHAB UNIT IN STABLE MEDICAL CONDITION. Inpatient Rehab Admission - Initial Determination Are CD services needed?: Yes Free of communicable disease: Yes Not in need of hospitalization: Yes - Rehab Admission Criteria Poor recovery environment: Yes Comorbidities: Yes Patient is meeting Inpatient Rehab admission criteria:: Yes
[~2018-04-06 15:09] MED LIST: IBUPROFEN 400 MG TABLET (FP) PO PRN; LOPERAMIDE HCL 2 MG CAPSULE PO PRN; MAG HYDROX/AL HYDROX/SIMETH 30 ML UNIT-DOSE CUP PO PRN; MAGNESIUM CITRATE 300 ML BOTTLE PO PRN; MAGNESIUM HYDROX 2400MG/30ML ORAL SUSPENSION 30 ML CUP PO PRN; MENTHOL/PHENOL 1 EACH UD MM PRN; NICOTINE POLACRILEX 2 MG GUM BUC PRN; P-EPHED 60MG/TRIPROLIDI 2.5MG TABLET PO PRN; guaiFENesin/D-METHORPHAN HB 10 ML UNIT-DOSE CUPS PO PRN
[2018-04-06 15:38] VITALS: BMI 54.9
[2018-04-06] MEDS: metFORMIN HCL 500 MG TABLET (FP) PO SCH (17:12)
[2018-04-06] MEDS: SENNOSIDES/DOCUSATE COMBO (SENNA PLUS) TABLET (UD) PO SCH (21:59)
[2018-04-06] MEDS: THIAMINE HCL 100 MG TABLET (FP) PO SCH (21:59)
[2018-04-06] MEDS: MELATONIN 5 MG TABLETS PO PRN (22:00)
[2018-04-07] MEDS: metFORMIN HCL 500 MG TABLET (FP) PO SCH ×2 (06:05→16:54)
[2018-04-07] MEDS ORDERED: METHADONE HCL 10 MG TABLET PO ONE (08:50)
[2018-04-07] MEDS ORDERED: METHADONE 80 MG, METHADONE 30 MG PO ONE (09:30)
[2018-04-07] MEDS ORDERED: METHADONE HCL 10 MG TABLET ONE (09:31)
[2018-04-07] MEDS ORDERED: METHADONE HCL 40 MG DISPERSABLE TABLET ONE (09:31)
[2018-04-07] MEDS: SENNOSIDES/DOCUSATE COMBO (SENNA PLUS) TABLET (UD) PO SCH ×2 (09:47→22:52)
[2018-04-07] MEDS: NICOTINE 21 MG/24 HOURS TOPICAL PATCH TD SCH (09:47)
[2018-04-07] MEDS: PRENATAL VITAMINS W/ FOLIC ACID TABLET (FP) PO SCH (09:47)
[2018-04-07] MEDS: LISINOPRIL 10 MG TABLET (FP) PO SCH (12:47)
[2018-04-07] MEDS: THIAMINE HCL 100 MG TABLET (FP) PO SCH (22:52)
[2018-04-08] MEDS ORDERED: METHADONE HCL 10 MG TABLET ONE (04:17)
[2018-04-08] MEDS ORDERED: METHADONE HCL 40 MG DISPERSABLE TABLET ONE (04:17)
[2018-04-08] MEDS ORDERED: METHADONE HCL 10 MG TABLET PO SCH (06:00)
[2018-04-08] MEDS: metFORMIN HCL 500 MG TABLET (FP) PO SCH ×2 (06:48→16:46)
[2018-04-08] MEDS: METHADONE 80 MG, METHADONE 30 MG PO SCH (06:50)
[2018-04-08] MEDS: LISINOPRIL 10 MG TABLET (FP) PO SCH (11:05)
[2018-04-08] MEDS: PRENATAL VITAMINS W/ FOLIC ACID TABLET (FP) PO SCH (11:05)
[2018-04-08] MEDS: NICOTINE 21 MG/24 HOURS TOPICAL PATCH TD SCH (11:06)
[2018-04-08] MEDS: SENNOSIDES/DOCUSATE COMBO (SENNA PLUS) TABLET (UD) PO SCH ×2 (11:09→21:54)
[2018-04-08] MEDS: COLLOIDAL OATMEAL 1 BAR EACH TP PRN (11:25)
[2018-04-08] MEDS: THIAMINE HCL 100 MG TABLET (FP) PO SCH (21:54)
[2018-04-08] MEDS: ACETAMINOPHEN 325 MG TABLET (FP) PO PRN (21:54)
[2018-04-09] MEDS ORDERED: METHADONE HCL 10 MG TABLET ONE (04:29)
[2018-04-09] MEDS ORDERED: METHADONE HCL 40 MG DISPERSABLE TABLET ONE (04:29)
[2018-04-09] MEDS: metFORMIN HCL 500 MG TABLET (FP) PO SCH ×2 (07:25→17:07)
[2018-04-09] MEDS: METHADONE 80 MG, METHADONE 30 MG PO SCH (07:26)
[2018-04-09] MEDS: NICOTINE 21 MG/24 HOURS TOPICAL PATCH TD SCH (10:28)
[2018-04-09] MEDS: LISINOPRIL 10 MG TABLET (FP) PO SCH (10:28)
[2018-04-09] MEDS: SENNOSIDES/DOCUSATE COMBO (SENNA PLUS) TABLET (UD) PO SCH ×2 (10:28→21:47)
[2018-04-09] MEDS: PRENATAL VITAMINS W/ FOLIC ACID TABLET (FP) PO SCH (10:28)
[2018-04-09] MEDS ORDERED: INSULIN (NOVOLOG) ASPART 100 UNITS/ML 10ML VIAL ONE (17:07)
[2018-04-09] MEDS: INSULIN SLIDING SCALE (NOVOLOG) 1 VIAL SQ SCH (17:10)
[2018-04-09] MEDS: THIAMINE HCL 100 MG TABLET (FP) PO SCH (21:47)
[2018-04-10] MEDS ORDERED: METHADONE HCL 10 MG TABLET ONE (05:53)
[2018-04-10] MEDS ORDERED: METHADONE HCL 40 MG DISPERSABLE TABLET ONE (05:53)
[2018-04-10] MEDS: METHADONE 80 MG, METHADONE 30 MG PO SCH (06:14)
[2018-04-10] MEDS: metFORMIN HCL 500 MG TABLET (FP) PO SCH ×2 (06:15→16:57)
[2018-04-10] MEDS: INSULIN SLIDING SCALE (NOVOLOG) 1 VIAL SQ SCH ×3 (06:17→17:01)
[2018-04-10] MEDS: PRENATAL VITAMINS W/ FOLIC ACID TABLET (FP) PO SCH (10:43)
[2018-04-10] MEDS: SENNOSIDES/DOCUSATE COMBO (SENNA PLUS) TABLET (UD) PO SCH ×2 (10:43→21:47)
[2018-04-10] MEDS: NICOTINE 21 MG/24 HOURS TOPICAL PATCH TD SCH (10:43)
[2018-04-10] MEDS: LISINOPRIL 10 MG TABLET (FP) PO SCH (10:43)
[2018-04-10] MEDS ORDERED: INSULIN (NOVOLOG) ASPART 100 UNITS/ML 10ML VIAL ONE ×2 (11:56→16:59)
[2018-04-10] MEDS: THIAMINE HCL 100 MG TABLET (FP) PO SCH (21:47)
[2018-04-11] MEDS ORDERED: METHADONE HCL 10 MG TABLET ONE (04:32)
[2018-04-11] MEDS ORDERED: METHADONE HCL 40 MG DISPERSABLE TABLET ONE (04:33)
[2018-04-11] MEDS: METHADONE 80 MG, METHADONE 30 MG PO SCH (06:43)
[2018-04-11] MEDS: metFORMIN HCL 500 MG TABLET (FP) PO SCH ×2 (06:45→16:54)
[2018-04-11] MEDS ORDERED: INSULIN (NOVOLOG) ASPART 100 UNITS/ML 10ML VIAL ONE ×2 (08:25→11:54)
[2018-04-11] MEDS: INSULIN SLIDING SCALE (NOVOLOG) 1 VIAL SQ SCH ×3 (08:26→16:55)
[2018-04-11] MEDS: NICOTINE 21 MG/24 HOURS TOPICAL PATCH TD SCH (10:41)
[2018-04-11] MEDS: LISINOPRIL 10 MG TABLET (FP) PO SCH (10:41)
[2018-04-11] MEDS: SENNOSIDES/DOCUSATE COMBO (SENNA PLUS) TABLET (UD) PO SCH ×2 (10:41→21:43)
[2018-04-11] MEDS: PRENATAL VITAMINS W/ FOLIC ACID TABLET (FP) PO SCH (10:41)
[2018-04-11] MEDS: THIAMINE HCL 100 MG TABLET (FP) PO SCH (21:43)
[2018-04-11] MEDS: MELATONIN 5 MG TABLETS PO PRN (21:44)
[2018-04-11] MEDS: COLLOIDAL OATMEAL 1 BAR EACH TP PRN (21:44)
[2018-04-12] MEDS ORDERED: METHADONE HCL 40 MG DISPERSABLE TABLET ONE (04:28)
[2018-04-12] MEDS ORDERED: METHADONE HCL 10 MG TABLET ONE (04:28)
[2018-04-12] MEDS: metFORMIN HCL 500 MG TABLET (FP) PO SCH ×2 (06:38→16:43)
[2018-04-12] MEDS: METHADONE 80 MG, METHADONE 30 MG PO SCH (06:39)
[2018-04-12] MEDS: INSULIN SLIDING SCALE (NOVOLOG) 1 VIAL SQ SCH ×3 (07:13→16:46)
[2018-04-12] MEDS: PRENATAL VITAMINS W/ FOLIC ACID TABLET (FP) PO SCH (10:10)
[2018-04-12] MEDS: NICOTINE 21 MG/24 HOURS TOPICAL PATCH TD SCH (10:10)
[2018-04-12] MEDS: SENNOSIDES/DOCUSATE COMBO (SENNA PLUS) TABLET (UD) PO SCH ×2 (10:10→21:47)
[2018-04-12] MEDS: LISINOPRIL 10 MG TABLET (FP) PO SCH (10:11)
[2018-04-12] MEDS: ACETAMINOPHEN 325 MG TABLET (FP) PO PRN (10:12)
[2018-04-12] MEDS ORDERED: INSULIN (NOVOLOG) ASPART 100 UNITS/ML 10ML VIAL ONE (16:32)
[2018-04-12] MEDS: THIAMINE HCL 100 MG TABLET (FP) PO SCH (21:47)
[2018-04-13] MEDS ORDERED: METHADONE HCL 10 MG TABLET ONE (03:17)
[2018-04-13] MEDS ORDERED: METHADONE HCL 40 MG DISPERSABLE TABLET ONE (03:17)
[2018-04-13] MEDS: METHADONE 80 MG, METHADONE 30 MG PO SCH (06:16)
[2018-04-13] MEDS: metFORMIN HCL 500 MG TABLET (FP) PO SCH ×2 (06:18→16:39)
[2018-04-13] MEDS: INSULIN SLIDING SCALE (NOVOLOG) 1 VIAL SQ SCH ×3 (06:18→16:40)
[2018-04-13 07:56] VITALS: TEMP 97.3
[2018-04-13] MEDS: SENNOSIDES/DOCUSATE COMBO (SENNA PLUS) TABLET (UD) PO SCH ×2 (10:31→21:53)
[2018-04-13] MEDS: PRENATAL VITAMINS W/ FOLIC ACID TABLET (FP) PO SCH (10:31)
[2018-04-13] MEDS: LISINOPRIL 10 MG TABLET (FP) PO SCH (10:31)
[2018-04-13] MEDS: NICOTINE 21 MG/24 HOURS TOPICAL PATCH TD SCH (10:32)
[2018-04-13 10:37] VITALS: BP 123/63; PULSE 88
[2018-04-13] MEDS: COLLOIDAL OATMEAL 1 BAR EACH TP PRN (10:46)
[2018-04-13] MEDS ORDERED: INSULIN (NOVOLOG) ASPART 100 UNITS/ML 10ML VIAL ONE ×2 (11:54→16:50)
[2018-04-13] MEDS: THIAMINE HCL 100 MG TABLET (FP) PO SCH (21:53)
[2018-04-13] MEDS: MELATONIN 5 MG TABLETS PO PRN (21:53)
[2018-04-14] MEDS: metFORMIN HCL 500 MG TABLET (FP) PO SCH (06:05)
[2018-04-14] MEDS ORDERED: INSULIN (NOVOLOG) ASPART 100 UNITS/ML 10ML VIAL ONE (06:08)
[2018-04-14] MEDS ORDERED: METHADONE 80 MG, METHADONE 30 MG PO SCH (06:30)
[2018-04-14] MEDS ORDERED: METHADONE HCL 10 MG TABLET PO SCH (06:30)
[2018-04-14] MEDS ORDERED: METHADONE HCL 10 MG TABLET ONE (06:37)
[2018-04-14] MEDS ORDERED: METHADONE HCL 40 MG DISPERSABLE TABLET ONE (06:37)
[2018-04-14] MEDS: INSULIN SLIDING SCALE (NOVOLOG) 1 VIAL SQ SCH (07:01)
--- NOTE | 2018-04-14 10:09 | PN ---
S Progress Note Note: PT DECLINED TO CONTINUE WITH REHAB TREATMENT AND WANTS TO SIGN OUT AMA. PT REPORTS HE HAS A PCP DR. MARK AND OWN [facility] AT [place], [place]. Vital Signs - 24 hr 04/14/18 04/14/18 00:30 03:30 Respiratory 18 18 Rate Laboratory Tests 04/06/18 04/06/18 04/07/18 17:11 21:59 06:05 POC Glucometer 292 224 184 04/07/18 04/08/18 04/08/18 16:53 06:47 16:46 POC Glucometer 322 247 318 04/09/18 04/09/18 04/10/18 07:24 17:06 06:13 POC Glucometer 283 299 207 04/10/18 04/10/18 04/11/18 11:53 16:56 06:44 POC Glucometer 328 269 287 04/11/18 04/11/18 04/12/18 11:51 16:54 06:37 POC Glucometer 378 333 221 04/12/18 04/12/18 04/13/18 11:58 16:42 06:15 POC Glucometer 229 385 235 04/13/18 04/13/18 04/14/18 11:52 16:37 06:04 POC Glucometer 282 333 293 NAD PLAN:FOLLOW UP WITH PCP, DR. MARK FOR MEDICAL MANAGEMENT AT [facility] IN 1-2 WEEKS. FOLLOW UP WITH CD AFTERCARE RECOMMENDATIONS AT [facility] ON [address] [place] ON 04/15/18 AT 06:00.
[2018-04-14] MEDS: SENNOSIDES/DOCUSATE COMBO (SENNA PLUS) TABLET (UD) PO SCH (10:25)
[2018-04-14] MEDS: LISINOPRIL 10 MG TABLET (FP) PO SCH (10:25)
[2018-04-14] MEDS: NICOTINE 21 MG/24 HOURS TOPICAL PATCH TD SCH (10:25)
[2018-04-14] MEDS: PRENATAL VITAMINS W/ FOLIC ACID TABLET (FP) PO SCH (10:25)
== END 2018-04-14 10:30 | disposition left against medical advice (07) | DRG 770 ==
LOC: YASAS 15:09 → Y5N 15:10
PROVIDERS: ADMIT Psychiatry & Neurology Psychiatry; ATTEND Psychiatry & Neurology Psychiatry
PROC: HZ42ZZZ Group Counseling for Substance Abuse Treatment, Cognitive-Behavioral (ICD-10-PCS; principal; 2018-04-06)
DX: F10.20 Alcohol dependence, uncomplicated (principal); F11.20 Opioid dependence, uncomplicated; F14.20 Cocaine dependence, uncomplicated; F12.20 Cannabis dependence, uncomplicated; F17.210 Nicotine dependence, cigarettes, uncomplicated; J45.20 Mild intermittent asthma, uncomplicated; I10 Essential (primary) hypertension; E11.9 Type 2 diabetes mellitus without complications; Z91.013 Allergy to seafood; Z79.84 Long term (current) use of oral hypoglycemic drugs; Z98.84 Bariatric surgery status
CPT/HCPCS: 82962

== ENCOUNTER 2018-08-19 12:43 | Inpatient (IN) | payer OTHER ==
[2018-08-19 14:46] VITALS: BMI 55.0
--- NOTE | 2018-08-19 15:21 | HP ---
CIWA Score Nausea/Vomitin Muscle Tremors: 2 Anxiety: 2 Agitation: 2 Paroxysmal Sweats: 1-Minimal Palms Moist Orientation: 0-Oriented Tacttile Disturbances: 1-Very Mild Itch/Numbness Auditory Disturbances: 1-Very Mild Visual Disturbances: 0-None Headache: 2-Mild CIWA-Ar Total Score: 13 - Admission Criteria OASAS Guidelines: Admission for Medically Managed Detox: Requires at least one of the followin. CIWA greater than 12 2. Seizures within the past 24 hours 3. Delirium tremens within the past 24 hours 4. Hallucinations within the past 24 hours 5. Acute intervention needed for co occurring medical disorder 6. Acute intervention needed for co occurring psychiatric disorder 7. Severe withdrawal that cannot be handled at a lower level of care (continued vomiting, continued diarrhea, abnormal vital signs) requiring intravenous medication and/or fluids 8. Admission ROS S - HPI Chief Complaint: i need help to stop drinking alcohol ,cocaine and marijuana,mmtp 140 mgs/day, last medicated 08/18/18 Allergies/Adverse Reactions: Allergies Allergy/AdvReac Type Severity Reaction Status Date / Time shellfish derived Allergy Intermediate Hives Verified 08/19/18 14:36 No Known Drug Allergies Allergy Verified 08/19/18 14:36 History of Present Illness: this 42 years old male with alcohol,cocaine and marijuana dependence seeking detox,withdrawal symptom, mmtp 140 mgs/day,last medicated 08/18/18 type 2 dm,hypertension last treatment [facility] 04/01/18 to 04/06/18 rehab 04/06/18 to 04/14/18 PW obesity nicotine dependence 1/2 pack/day,would like the nicotine patch and nicotine gum obesity longest sobriety 3 years plan for rehab after detox - Ebola screening Have you traveled outside of the country in the last 21 days: No Have you had contact with anyone from an Ebola affected area: No - Review of Systems Constitutional: Loss of Appetite, Malaise, Night Sweats, Changes in sleep, Weakness EENT: reports: Tearing, Nose Congestion Respiratory: reports: No Symptoms reported Cardiac: reports: No Symptoms Reported GI: reports: Nausea, Poor Appetite, Abdominal cramping : reports: No Symptoms Reported Musculoskeletal: reports: Back Pain, Muscle Pain Integumentary: reports: Dryness Neuro: reports: Headache, Tremors Endocrine: reports: No Symptoms Reported, Other (type 2 dm) Hematology: reports: No Symptoms Reported Psychiatric: reports: No Sypmtoms Reported, Judgement Intact, Mood/Affect Appropiate, Orientated x3 Other Systems: Reviewed and Negative Patient History - Patient Medical History Hx Anemia: No Hx Asthma: Yes (on albuterol inhaler) Hx Chronic Obstructive Pulmonary Disease (COPD): No Hx Cancer: No Hx Cardiac Disorders: No Hx Congestive Heart Failure: No Hx Hypertension: Yes (on med) Hx Hypercholesterolemia: No Hx Pacemaker: No HX Cerebrovascular Accident: No Hx Seizures: No Hx Dementia: No Hx Diabetes: Yes (on med) Hx Gastrointestinal Disorders: No Hx Liver Disease: No Hx Genitourinary Disorders: No Hx Sexually Transmitted Disorders: No Hx Renal Disease (ESRD): No Hx Thyroid Disease: No Hx Human Immunodeficiency Virus (HIV): No (Last Tested: 10/2017: NEGATIVE.) Hx Hepatitis C: No (Last Tested > 1 year ago: NEGATIVE.) Hx Depression: Yes Hx Suicide Attempt: No Hx Bipolar Disorder: Yes (No Current Medication, Unable To Recall Names of Past Medication.) Hx Schizophrenia: No Other Medical History: no suicidal,no homicidal - Patient Surgical History Past Surgical History: Yes Hx Neurologic Surgery: No Hx Cataract Extraction: No Hx Cardiac Surgery: No Hx Lung Surgery: No Hx Breast Surgery: No Hx Breast Biopsy: No Hx Abdominal Surgery: Yes (gastric bypass- 09/2003) Hx Appendectomy: No Hx Cholecystectomy: Yes (09/2003) Hx Genitourinary Surgery: No Hx Section: No Hx Orthopedic Surgery: No Other Surgical History: DENIES. Anesthesia Reaction: No - PPD History Documented Results: Positive w/proof Results: cxr04/02/18 neg - Smoking Cessation Smoking history: Current every day smoker Have you smoked in the past 12 months: Yes Aproximately how many cigarettes per day: 20 Cigars Per Day: 0 Hx Chewing Tobacco Use: No Initiated information on smoking cessation: Yes 'Breaking Loose' booklet given: 08/19/18 - Substance & Tx. History Hx Alcohol Use: Yes Hx Substance Use: Yes Substance Use Type: Alcohol, Cocaine, Heroin, Marijuana Hx Substance Use Treatment: Yes ([facility] 04/01/18 to 04/06/18 ,rhab 04/06/18 to 07/26) - Substances abused Heroin Substance route: Inhalation Frequency: Daily Amount used: 8-10 BAGS Age of first use: 18 Date of last use: 08/19/18 Alcohol Substance route: Oral Frequency: Daily Amount used: 10-15 CANS OF 24 OUNCES OF BEER/1 pint of hennesy Age of first use: 14 Date of last use: 08/18/18 Crack Substance route: Smoking Frequency: Daily Amount used: 15-20 BAGS Age of first use: 39 Date of last use: 08/18/18 Marijuana/Hashish Substance route: Smoking Frequency: Daily Amount used: 7-10 BLUNTS Age of first use: 12 Date of last use: 08/16/18 Family Disease History - Family Disease History Family Disease History: Diabetes: Grandparent (Cardiac Disease.), Father (HTN; Cardiac Disease.), Mother (HTN; Cardiac Disease.), Heart Disease: Grandparent, Father, Mother Admission Physical Exam [facility] - Vital Signs Vital Signs: Vital Signs - 24 hr 08/19/18 14:41 Temperature 97.7 F Pulse Rate 82 Respiratory 20 Rate Blood Pressure 119/77 - Physical General Appearance: Yes: Moderate Distress, Tremorous, Irritable, Sweating, Anxious HEENTM: Yes: Normal ENT Inspection, MARL[place], Pharynx Normal Respiratory: Yes: Lungs Clear, Normal Breath Sounds, No Respiratory Distress Neck: Yes: Within Normal Limits, Supple, Trachea in good position Breast: Yes: Within Normal Limits Cardiology: Yes: Within Normal Limits, Regular Rhythm, Regular Rate, S1, S2 Abdominal: Yes: Within Normal Limits, Normal Bowel Sounds, Non Tender, Soft Genitourinary: Yes: Within Normal Limits Back: Yes: Muscle Spasm Musculoskeletal: Yes: Back pain, Muscle Pain Extremities: Yes: Tremors Neurological: Yes: [place] [employer] group leader II-XII NML intact, Alert, Motor Strength 5/5 Integumentary: Yes: Dry Lymphatic: Yes: Within Normal Limits - Diagnostic (1) Alcohol dependence with uncomplicated withdrawal Current Visit: No Status: Chronic (2) Asthma Current Visit: No Status: Chronic Qualifiers: Asthma severity: mild Asthma persistence: intermittent Asthma complication type: uncomplicated Qualified Code(s): J45.20 - Mild intermittent asthma, uncomplicated (3) Cannabis dependence, uncomplicated Current Visit: No Status: Chronic (4) Cocaine dependence, uncomplicated Current Visit: No Status: Chronic (5) History of bipolar disorder Current Visit: No Status: Chronic (6) Hypertension Current Visit: No Status: Chronic Qualifiers: Hypertension type: essential hypertension Qualified Code(s): I10 - Essential (primary) hypertension (7) Nicotine dependence Current Visit: No Status: Chronic Qualifiers: Nicotine product type: cigarettes Substance use status: uncomplicated Qualified Code(s): F17.210 - Nicotine dependence, cigarettes, uncomplicated (8) PPD positive, treated Current Visit: No Status: Chronic (9) Type II diabetes mellitus Current Visit: No Status: Chronic Qualifiers: Diabetes mellitus ad terminal makeup operator insulin use: without ad terminal makeup operator use Diabetes mellitus complication status: with unspecified complications (10) Obesity Current Visit: Yes Status: Acute (11) History of gastric bypass Current Visit: Yes Status: Acute Cleared for Admission S - Detox or Rehab S Level of Care: Medically Managed Detox Regimen/Protocol: Librium Breathalyzer - Breathalyzer Breathalyzer: 0 Urine Drug Screen - Test Device Lot number: [id number] Expiration date: 05/07/20 - Control Is test valid?: Yes - Results Drug screen NEGATIVE: No Urine drug screen results: THC-Marijuana, [place]-Cocaine, MOP-Opiates, MTD- Methadone, BZO-Benzodiazepines Inpatient Rehab Admission - Rehab Decision to Admit Inpatient rehab admission?: No
[2018-08-19] MEDS ORDERED: chlordiazePOXIDE HCL 25 MG CAPSULE PO PRN (15:36)
[2018-08-19] MEDS ORDERED: hydrOXYzine PAMOATE 25 MG CAPSULE (FP) PO PRN (15:36)
[2018-08-19] MEDS ORDERED: NICOTINE POLACRILEX 2 MG GUM BUC PRN (15:36)
[2018-08-19] MEDS ORDERED: IBUPROFEN 400 MG TABLET (FP) PO PRN (15:36)
[2018-08-19] MEDS ORDERED: MAGNESIUM CITRATE 300 ML BOTTLE PO PRN (15:36)
[2018-08-19] MEDS ORDERED: BISMUTH SUBSALICYLATE 524 MG/30 ML UD PO PRN (15:36)
[2018-08-19] MEDS ORDERED: MAG HYDROX/AL HYDROX/SIMETH 30 ML UNIT-DOSE CUP PO PRN (15:36)
[2018-08-19] MEDS ORDERED: MAGNESIUM HYDROX 2400MG/30ML ORAL SUSPENSION 30 ML CUP PO PRN (15:36)
[2018-08-19] MEDS ORDERED: MENTHOL/PHENOL 1 EACH UD MM PRN (15:36)
[2018-08-19] MEDS ORDERED: ACETAMINOPHEN 325 MG TABLET (FP) PO PRN ×2 (15:36)
[2018-08-19] MEDS ORDERED: METHADONE HCL 10 MG TABLET PO ONE (15:45)
[2018-08-19] MEDS ORDERED: METHADONE 120 MG, METHADONE 20 MG PO ONE (16:30)
[2018-08-19 16:44] LABS: HEMATOCRIT 37.6 % (35.4-49); HEMOGLOBIN 12.2 GM/dL (11.7-16.9); MCH 24.7 pg (25.7-33.7); MCHC 32.4 g/dl (32.0-35.9); MEAN CELL VOLUME 76.2 fl (80-96); MEAN PLT VOLUME 8.7 fl (7.5-11.1); PLATELET COUNT 201 K/MM3 (134-434); RBC 4.94 M/mm3 (4.00-5.60); RDW 16.8 % (11.9-15.9); WHITE BLOOD COUNT 8.2 K/mm3 (4.0-10.0)
[2018-08-19 17:12] LABS: ALBUMIN 3.3 g/dl (3.4-5.0); BILIRUBIN,TOTAL 0.2 mg/dL (0.2-1); BLOOD UREA NITROGEN 12.5 mg/dL (7-18); CALCIUM 8.8 mg/dL (8.5-10.1); POTASSIUM 3.9 mmol/L (3.5-5.1); TOT PROT 6.8 g/dl (6.4-8.2)
[2018-08-19] MEDS: chlordiazePOXIDE HCL 25 MG CAPSULE PO SCH ×2 (17:35→22:39)
[2018-08-19] MEDS ORDERED: METHADONE HCL 10 MG TABLET ONE (17:47)
[2018-08-19] MEDS ORDERED: METHADONE HCL 40 MG DISPERSABLE TABLET ONE (17:49)
[2018-08-19] MEDS: metFORMIN HCL 500 MG TABLET (FP) PO SCH (18:21)
[2018-08-19] MEDS: NICOTINE 21 MG/24 HOURS TOPICAL PATCH TD SCH (18:22)
[2018-08-19] MEDS: DOCUSATE SODIUM 100 MG CAPSULE (FP) PO SCH (22:39)
[2018-08-19] MEDS: MELATONIN 5 MG TABLETS PO PRN (22:39)
[2018-08-19] MEDS: SENNOSIDES 8.6MG TABLET (FP) PO SCH (22:39)
[2018-08-19] MEDS: THIAMINE HCL 100 MG TABLET (FP) PO SCH (22:42)
[2018-08-20] MEDS ORDERED: METHADONE HCL 10 MG TABLET ONE (04:43)
[2018-08-20] MEDS ORDERED: METHADONE HCL 40 MG DISPERSABLE TABLET ONE (04:44)
[2018-08-20] MEDS ORDERED: METHADONE HCL 40 MG DISPERSABLE TABLET PO SCH (06:00)
[2018-08-20] MEDS: chlordiazePOXIDE HCL 25 MG CAPSULE PO SCH ×4 (06:07→22:10)
[2018-08-20] MEDS: METHADONE 120 MG, METHADONE 20 MG PO SCH (07:07)
[2018-08-20] MEDS: metFORMIN HCL 500 MG TABLET (FP) PO SCH ×2 (07:08→18:06)
[2018-08-20 07:42] LABS: URINE APPEARANCE TURBID; URINE BILIRUBIN NEGATIVE (NEGATIVE); URINE COLOR YELLOW; URINE GLUCOSE (UA) NEGATIVE (NEGATIVE); URINE KETONE TRACE (NEGATIVE); URINE LEUK ESTERASE NEGATIVE (NEGATIVE); URINE NITRITE NEGATIVE (NEGATIVE); URINE PROTEIN NEGATIVE (NEGATIVE)
[2018-08-20] MEDS ORDERED: PRENATAL VITAMINS W/ FOLIC ACID TABLET (FP) PO SCH (10:00)
[2018-08-20] MEDS ORDERED: LISINOPRIL 10 MG TABLET (FP) PO SCH (10:00)
[2018-08-20] MEDS: NICOTINE 21 MG/24 HOURS TOPICAL PATCH TD SCH (10:19)
[2018-08-20] MEDS: METHOCARBAMOL 500 MG TABLET PO PRN ×2 (10:21→18:10)
--- NOTE | 2018-08-20 11:41 | PN ---
[facility] CIWA - CIWA Score Nausea/Vomitin-No Nausea/No Vomiting Muscle Tremors: 3 Anxiety: 3 Agitation: 3 Paroxysmal Sweats: 3 Orientation: 0-Oriented Tacttile Disturbances: 0-None Auditory Disturbances: 0-None Visual Disturbances: 0-None Headache: 0-None Present CIWA-Ar Total Score: 12 S Progress Note (SOAP) Subjective: hemorrhoids sweats shakes interrupted sleep dry rash on my arms and parts of my body Objective: 08/20/18 11:40 Vital Signs Temperature 98.4 F 08/20/18 09:25 Pulse Rate 91 H 08/20/18 09:25 Respiratory Rate 18 08/20/18 09:25 Blood Pressure 125/78 08/20/18 09:25 O2 Sat by Pulse Oximetry (%) Laboratory Tests 08/19/18 08/19/18 08/19/18 15:30 15:30 15:30 WBC 8.2 RBC 4.94 Hgb 12.2 Hct 37.6 MCV 76.2 L MCH 24.7 L MCHC 32.4 RDW 16.8 H Plt Count 201 MPV 8.7 Sodium 137 Potassium 3.9 Chloride 102 Carbon Dioxide 31 Anion Gap 5 L BUN 12.5 Creatinine 1.0 Est GFR (CKD-EPI)AfAm 107.12 Est GFR (CKD-EPI)NonAf 92.42 POC Glucometer Random Glucose 177 H Calcium 8.8 Total Bilirubin 0.2 AST 18 ALT 20 Alkaline Phosphatase 94 Total Protein 6.8 Albumin 3.3 L Urine Color Urine Appearance Urine pH Ur Specific [place] Urine Protein Urine Glucose (UA) Urine Ketones Urine Blood Urine Nitrite Urine Bilirubin Urine Urobilinogen Ur Leukocyte Esterase RPR Titer Nonreactive HIV 1&2 Antibody Screen HIV P24 Antigen 08/19/18 08/19/18 08/19/18 15:30 17:34 20:20 WBC RBC Hgb Hct MCV MCH MCHC RDW Plt Count MPV Sodium Potassium Chloride Carbon Dioxide Anion Gap BUN Creatinine Est GFR (CKD-EPI)AfAm Est GFR (CKD-EPI)NonAf POC Glucometer 88 Random Glucose Calcium Total Bilirubin AST ALT Alkaline Phosphatase Total Protein Albumin Urine Color Yellow Urine Appearance Turbid Urine pH 5.0 Ur Specific [place] 1.035 Urine Protein Negative Urine Glucose (UA) Negative Urine Ketones Trace H Urine Blood Negative Urine Nitrite Negative Urine Bilirubin Negative Urine Urobilinogen 1.0 Ur Leukocyte Esterase Negative RPR Titer HIV 1&2 Antibody Screen Negative HIV P24 Antigen Negative 08/20/18 08:06 WBC RBC Hgb Hct MCV MCH MCHC RDW Plt Count MPV Sodium Potassium Chloride Carbon Dioxide Anion Gap BUN Creatinine Est GFR (CKD-EPI)AfAm Est GFR (CKD-EPI)NonAf POC Glucometer 149 Random Glucose Calcium Total Bilirubin AST ALT Alkaline Phosphatase Total Protein Albumin Urine Color Urine Appearance Urine pH Ur Specific [place] Urine Protein Urine Glucose (UA) Urine Ketones Urine Blood Urine Nitrite Urine Bilirubin Urine Urobilinogen Ur Leukocyte Esterase RPR Titer HIV 1&2 Antibody Screen HIV P24 Antigen aaox3 ambulating no acute distress Assessment: 08/20/18 11:40 withdrawal sx Plan: continue detox increase fluids anusol aveeno soap lac-hydrin ordered hydrocortizone cream
[2018-08-20] MEDS ORDERED: HYDROCORTISONE 1% TOPICAL CREAM 30 GM TUBE TP PRN (11:42)
[2018-08-20] MEDS ORDERED: COLLOIDAL OATMEAL 1 BAR EACH TP PRN (11:42)
[2018-08-20] MEDS ORDERED: AMMONIUM LACTATE 12% LOTION 225 GM BOTTLE TP PRN (11:42)
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
[2018-08-20] MEDS: SENNOSIDES 8.6MG TABLET (FP) PO SCH (22:09)
[2018-08-20] MEDS: MELATONIN 5 MG TABLETS PO PRN (22:10)
[2018-08-20] MEDS: THIAMINE HCL 100 MG TABLET (FP) PO SCH (22:10)
[2018-08-20] MEDS: DOCUSATE SODIUM 100 MG CAPSULE (FP) PO SCH (22:10)
[2018-08-21] MEDS ORDERED: METHADONE HCL 10 MG TABLET ONE (06:12)
[2018-08-21] MEDS ORDERED: METHADONE HCL 40 MG DISPERSABLE TABLET ONE (06:13)
[2018-08-21] MEDS: chlordiazePOXIDE HCL 25 MG CAPSULE PO SCH (06:25)
[2018-08-21] MEDS: METHADONE 120 MG, METHADONE 20 MG PO SCH (06:25)
[2018-08-21] MEDS: metFORMIN HCL 500 MG TABLET (FP) PO SCH (06:31)
[2018-08-21 06:32] VITALS: BP 151/78; PULSE 85; TEMP 97.9
--- NOTE | 2018-08-21 09:55 | PN ---
[facility] Progress Note Note: pt states he is leaving because he needs to go to the medicaid office and make sure it maintains active. Pt was advised that counseling can assist however he insisted on leaving and signed out AMA.
--- NOTE | 2018-08-21 10:05 | DS ---
[facility] Detox Discharge Summary Admission Date: 08/19/18 - History Present History: Alcohol Dependence, Cannabis Dependence, Cocaine Dependence, MMTP - Physical Exam Results Vital Signs: Vital Signs Temperature 97.9 F 08/21/18 06:00 Pulse Rate 85 08/21/18 06:00 Respiratory Rate 20 08/21/18 06:00 Blood Pressure 151/78 08/21/18 06:00 O2 Sat by Pulse Oximetry (%) - Treatment Hospital Course: Discharged Condition Good - Medication Discharge Medications: Ambulatory Orders Docusate Sodium [Colace] 300 mg PO HS 04/01/18 Lisinopril 10 mg PO DAILY 04/01/18 Metformin HCl [Glucophage] 1,000 mg PO BID 04/01/18 Methadone [Dolophine -] 140 mg PO DAILY 04/01/18 Sennosides [Senna] 2 tab PO HS 04/01/18 - Diagnosis (1) Alcohol dependence with uncomplicated withdrawal Current Visit: Yes Status: Chronic (2) History of gastric bypass Current Visit: Yes Status: Acute (3) Obesity Current Visit: Yes Status: Acute (4) Cannabis dependence, uncomplicated Current Visit: Yes Status: Chronic (5) Methadone maintenance therapy patient Current Visit: Yes Status: Chronic (6) Anxiety Current Visit: No Status: Acute (7) Asthma Current Visit: No Status: Chronic Qualifiers: Asthma severity: mild Asthma persistence: intermittent Asthma complication type: uncomplicated Qualified Code(s): J45.20 - Mild intermittent asthma, uncomplicated (8) Cocaine dependence, uncomplicated Current Visit: No Status: Chronic (9) Depression Current Visit: No Status: Chronic (10) History of bipolar disorder Current Visit: No Status: Chronic (11) Hypertension Current Visit: No Status: Chronic Qualifiers: Hypertension type: essential hypertension Qualified Code(s): I10 - Essential (primary) hypertension (12) Morbid obesity with BMI of 50.0-59.9, adult Current Visit: No Status: Chronic (13) Nicotine dependence Current Visit: No Status: Chronic Qualifiers: Nicotine product type: cigarettes Substance use status: uncomplicated Qualified Code(s): F17.210 - Nicotine dependence, cigarettes, uncomplicated (14) PPD positive, treated Current Visit: No Status: Chronic (15) Type II diabetes mellitus Current Visit: No Status: Chronic Qualifiers: Diabetes mellitus fpc insulin use: without skates operator use Diabetes mellitus complication status: with unspecified complications - AMA Did Patient Leave Against Medical Advice: Yes (going home.)
[2018-08-21] MEDS ORDERED: chlordiazePOXIDE HCL 10 MG CAPSULE PO SCH (17:00)
[2018-08-21] MEDS ORDERED: chlordiazePOXIDE HCL 10 MG CAPSULE PO PRN (17:00)
[2018-08-22] MEDS ORDERED: chlordiazePOXIDE HCL 10 MG CAPSULE PO SCH (17:00)
== END 2018-08-21 09:50 | disposition home or self-care (01) | DRG 773 ==
LOC: YASAS 12:43 → Y6N 15:43
PROVIDERS: ADMIT Surgery; ATTEND Surgery
PROC: HZ2ZZZZ Detoxification Services for Substance Abuse Treatment (ICD-10-PCS; principal; 2018-08-19)
DX: F10.230 Alcohol dependence with withdrawal, uncomplicated (principal); F11.20 Opioid dependence, uncomplicated; F14.20 Cocaine dependence, uncomplicated; F12.20 Cannabis dependence, uncomplicated; F17.210 Nicotine dependence, cigarettes, uncomplicated; F31.9 Bipolar disorder, unspecified; F41.9 Anxiety disorder, unspecified; F32.9 Major depressive disorder, single episode, unspecified; I10 Essential (primary) hypertension; E11.9 Type 2 diabetes mellitus without complications; Z79.84 Long term (current) use of oral hypoglycemic drugs; J45.909 Unspecified asthma, uncomplicated; R76.11 Nonspecific reaction to tuberculin skin test without active tuberculosis; E66.01 Morbid (severe) obesity due to excess calories; Z68.43 Body mass index [BMI] 50.0-59.9, adult; Z98.84 Bariatric surgery status
CPT/HCPCS: 36415; 80053; 81003; 82962; 85027; 86593; 87389

== ENCOUNTER 2018-09-16 11:45 | Inpatient (IN) | payer OTHER ==
[2018-09-16 15:32] VITALS: BMI 54.3
--- NOTE | 2018-09-16 16:59 | HP ---
CIWA Score - Admission Criteria [facility]AS Guidelines: Admission for Medically Managed Detox: Requires at least one of the followin. CIWA greater than 12 2. Seizures within the past 24 hours 3. Delirium tremens within the past 24 hours 4. Hallucinations within the past 24 hours 5. Acute intervention needed for co occurring medical disorder 6. Acute intervention needed for co occurring psychiatric disorder 7. Severe withdrawal that cannot be handled at a lower level of care (continued vomiting, continued diarrhea, abnormal vital signs) requiring intravenous medication and/or fluids 8. Admission ROS S - HPI Chief Complaint: alcohol, crack /cocaine and marijuana rehabilitation Allergies/Adverse Reactions: Allergies Allergy/AdvReac Type Severity Reaction Status Date / Time shellfish derived Allergy Intermediate Hives Verified 09/16/18 15:14 No Known Drug Allergies Allergy Verified 09/16/18 15:14 History of Present Illness: Patient is a 42 yo male, homeless, with hx of crack /cocaine, marijuana and alcohol dependence is here seeking inpatient rehabilitation, reports last detox two weeks ago at [facility] and left AMA. On Methadone maintenance at [facility] on 150 mg daily, last medicated today, dose pending verification. PMHX: HTN, DM II, Psych : Denies SI/HI . Denies hx of seizures or blackouts. Exam Limitations: No Limitations - Ebola screening Have you traveled outside of the country in the last 21 days: No (N) Have you had contact with anyone from an Ebola affected area: No Do you have a fever: No - Review of Systems Constitutional: No Symptoms Reported EENT: reports: No Symptoms Reported Respiratory: reports: No Symptoms reported Cardiac: reports: No Symptoms Reported GI: reports: Nausea, Indigestion : reports: No Symptoms Reported Musculoskeletal: reports: Joint Pain Integumentary: reports: No Symptoms Reported Neuro: reports: No Symptoms reported Endocrine: reports: No Symptoms Reported Hematology: reports: No Symptoms Reported Psychiatric: reports: Orientated x3, Anxious Other Systems: Reviewed and Negative Patient History - Patient Medical History Hx Anemia: No Hx Asthma: Yes (on albuterol inhaler) Hx Chronic Obstructive Pulmonary Disease (COPD): No Hx Cancer: No Hx Cardiac Disorders: No Hx Congestive Heart Failure: No Hx Hypertension: Yes (on med) Hx Hypercholesterolemia: No Hx Pacemaker: No HX Cerebrovascular Accident: No Hx Seizures: No Hx Dementia: No Hx Diabetes: Yes (on med) Hx Gastrointestinal Disorders: No Hx Liver Disease: No Hx Genitourinary Disorders: No Hx Sexually Transmitted Disorders: No Hx Renal Disease (ESRD): No Hx Thyroid Disease: No Hx Human Immunodeficiency Virus (HIV): No (Last Tested: 10/2017: NEGATIVE.) Hx Hepatitis C: No (Last Tested > 1 year ago: NEGATIVE.) Hx Depression: Yes Hx Suicide Attempt: No Hx Bipolar Disorder: Yes (No Current Medication, Unable To Recall Names of Past Medication.) Hx Schizophrenia: No - Patient Surgical History Past Surgical History: Yes Hx Neurologic Surgery: No Hx Cataract Extraction: No Hx Cardiac Surgery: No Hx Lung Surgery: No Hx Breast Surgery: No Hx Breast Biopsy: No Hx Abdominal Surgery: Yes (gastric bypass- 09/2003) Hx Appendectomy: No Hx Cholecystectomy: Yes (09/2003) Hx Genitourinary Surgery: No Hx Section: No Hx Orthopedic Surgery: No Other Surgical History: DENIES. Anesthesia Reaction: No - PPD History Results: cxr04/02/18 neg PPD to be Administered?: No - Smoking Cessation Smoking history: Current every day smoker Have you smoked in the past 12 months: Yes Aproximately how many cigarettes per day: 20 Cigars Per Day: 0 Hx Chewing Tobacco Use: No Initiated information on smoking cessation: Yes 'Breaking Loose' booklet given: 09/16/18 - Substance & Tx. History Hx Alcohol Use: Yes Hx Substance Use: Yes Substance Use Type: Alcohol, Cocaine, Marijuana Hx Substance Use Treatment: Yes (Detox [facility] 08/19/18 -08/21/18 ) - Substances abused Heroin Substance route: Inhalation Frequency: 1-2 times per week Amount used: 1-2 bags Age of first use: 18 Date of last use: 09/15/18 Alcohol Substance route: Oral Frequency: Daily Amount used: 10-15 CANS OF 24 OUNCES OF BEER/1 pint of hennesy Age of first use: 12 Date of last use: 09/15/18 Crack Substance route: Smoking Frequency: Daily Amount used: 8-10 bags Age of first use: 39 Date of last use: 09/15/18 Marijuana/Hashish Substance route: Smoking Frequency: Daily Amount used: 3-4 blunts Age of first use: 14 Date of last use: 09/15/18 Family Disease History - Family Disease History Family Disease History: Diabetes: Grandparent (Cardiac Disease.), Father (HTN; Cardiac Disease.), Mother (HTN; Cardiac Disease.), Heart Disease: Grandparent, Father, Mother Admission Physical Exam S - Vital Signs Vital Signs: Vital Signs - 24 hr 09/16/18 15:08 Temperature 97.9 F Pulse Rate 74 Respiratory 17 Rate Blood Pressure 133/76 - Physical General Appearance: Yes: Appropriately Dressed, Disheveled (malodorous), Obese HEENTM: Yes: EOMI, Hearing grossly Normal, Normal ENT Inspection, Normocephalic , Normal Voice, MARLON, Pharynx Normal, Tm's normal Respiratory: Yes: Chest Non-Tender, Lungs Clear, Normal Breath Sounds, No Respiratory Distress, No Accessory Muscle Use Neck: Yes: Within Normal Limits Breast: Yes: Breast Exam Deferred Cardiology: Yes: Regular Rhythm, Regular Rate Abdominal: Yes: Normal Bowel Sounds, Non Tender, Soft, Protuberent Genitourinary: Yes: Within Normal Limits Back: Yes: Within Normal Limits Musculoskeletal: Yes: full range of Motion, Gait Steady, Pelvis Stable Extremities: Yes: Normal Capillary Refill, Normal Inspection, Normal Range of Motion, Non-Tender Neurological: Yes: biopharmaceutical rep II-XII NML intact, Fully Oriented, Alert, Motor Strength 5/5, Normal Response, Depressed Affect Integumentary: Yes: Normal Color, Dry, Warm, Other (+ calous on b/l feet, + b/l leg edema 1 non-pitting) Lymphatic: Yes: Within Normal Limits - Diagnostic (1) Alcohol dependence Current Visit: Yes Status: Acute Qualifiers: Substance use status: uncomplicated Qualified Code(s): F10.20 - Alcohol dependence, uncomplicated (2) History of gastric bypass Current Visit: Yes Status: Chronic (3) Asthma Current Visit: Yes Status: Chronic Qualifiers: Asthma severity: mild Asthma persistence: intermittent Asthma complication type: uncomplicated Qualified Code(s): J45.20 - Mild intermittent asthma, uncomplicated (4) Cannabis dependence, uncomplicated Current Visit: Yes Status: Chronic (5) Cocaine dependence, uncomplicated Current Visit: Yes Status: Chronic (6) Hypertension Current Visit: Yes Status: Chronic Qualifiers: Hypertension type: essential hypertension Qualified Code(s): I10 - Essential (primary) hypertension (7) Methadone maintenance therapy patient Current Visit: Yes Status: Chronic (8) Morbid obesity with BMI of 50.0-59.9, adult Current Visit: Yes Status: Chronic (9) Nicotine dependence Current Visit: Yes Status: Chronic Qualifiers: Nicotine product type: cigarettes Substance use status: uncomplicated Qualified Code(s): F17.210 - Nicotine dependence, cigarettes, uncomplicated (10) Type II diabetes mellitus Current Visit: Yes Status: Chronic Qualifiers: Diabetes mellitus prison insulin use: without prison use Diabetes mellitus complication status: with unspecified complications Breathalyzer - Breathalyzer Breathalyzer: 0.010 Urine Drug Screen - Test Device Lot number: [id number] Expiration date: 07/07/20 - Control Is test valid?: Yes - Results Drug screen NEGATIVE: No Urine drug screen results: THC-Marijuana, HALE[place]-Cocaine, MOP-Opiates, MTD- Methadone, BZO-Benzodiazepines Inpatient Rehab Admission - Rehab Decision to Admit Inpatient rehab admission?: Yes - Initial Determination Are CD services needed?: Yes Free of communicable disease: Yes Not in need of hospitalization: Yes - Rehab Admission Criteria Previous failed treatment: Yes Poor recovery environment: Yes Comorbidities: Yes Lacks judgement: Yes Patient is meeting Inpatient Rehab admission criteria:: Yes
[2018-09-16] MEDS ORDERED: NICOTINE POLACRILEX 2 MG GUM BC PRN (17:03)
[2018-09-16] MEDS ORDERED: guaiFENesin 200 MG/10 ML 10 ML UNIT-DOSE CUPS PO PRN (17:03)
[2018-09-16] MEDS ORDERED: MENTHOL/PHENOL 1 EACH UD MM PRN (17:03)
[2018-09-16] MEDS ORDERED: P-EPHED 60MG/TRIPROLIDI 2.5MG TABLET PO PRN (17:03)
[2018-09-16] MEDS ORDERED: LOPERAMIDE HCL 2 MG CAPSULE PO PRN (17:03)
[2018-09-16] MEDS ORDERED: MAG HYDROX/AL HYDROX/SIMETH 30 ML UNIT-DOSE CUP PO PRN (17:03)
[2018-09-16] MEDS: metFORMIN HCL 500 MG TABLET (FP) PO SCH (18:23)
[2018-09-16] MEDS: THIAMINE HCL 100 MG TABLET (FP) PO SCH (21:23)
[2018-09-16] MEDS: SENNOSIDES 8.6MG TABLET (FP) PO SCH (21:23)
[2018-09-16] MEDS: DOCUSATE SODIUM 100 MG CAPSULE (FP) PO SCH (21:23)
[2018-09-16] MEDS: IBUPROFEN 400 MG TABLET (FP) PO PRN (21:26)
[2018-09-17] MEDS ORDERED: METHADONE HCL 10 MG TABLET ONE (05:28)
[2018-09-17] MEDS ORDERED: METHADONE HCL 40 MG DISPERSABLE TABLET ONE (05:28)
[2018-09-17] MEDS ORDERED: METHADONE HCL 10 MG TABLET PO SCH (06:00)
[2018-09-17 06:22] LABS: URINE APPEARANCE TURBID; URINE BILIRUBIN NEGATIVE (NEGATIVE); URINE COLOR DK YELLOW; URINE GLUCOSE (UA) NEGATIVE (NEGATIVE); URINE KETONE TRACE (NEGATIVE); URINE LEUK ESTERASE NEGATIVE (NEGATIVE); URINE NITRITE NEGATIVE (NEGATIVE); URINE PROTEIN NEGATIVE (NEGATIVE)
[2018-09-17] MEDS: METHADONE 120 MG, METHADONE 30 MG PO SCH (06:25)
[2018-09-17] MEDS: IBUPROFEN 400 MG TABLET (FP) PO PRN (06:27)
[2018-09-17] MEDS ORDERED: cloNIDine HCL 0.1 MG TABLET PO ONE (06:38)
--- NOTE | 2018-09-17 06:42 | PN ---
S Progress Note Note: Patient's blood pressure this morning is B/P 165/114. Patient complains of headache Vital Signs Temperature 97.6 F 09/17/18 06:39 Pulse Rate 78 09/17/18 06:39 Respiratory Rate 18 09/17/18 06:39 Blood Pressure 165/114 H 09/17/18 06:39 O2 Sat by Pulse Oximetry (%) Action: Clonidine o.1mg tablet 1 tablet oral ordered Tylenol 325mg tablet 2 tablets oral Q6H as needed
[2018-09-17] MEDS: metFORMIN HCL 500 MG TABLET (FP) PO SCH ×2 (06:56→16:56)
[2018-09-17] MEDS: LISINOPRIL 10 MG TABLET (FP) PO SCH (09:17)
[2018-09-17] MEDS: PRENATAL VITAMINS W/ FOLIC ACID TABLET (FP) PO SCH (09:17)
[2018-09-17] MEDS: NICOTINE 14 MG/24 HOURS TOPICAL PATCH TD SCH (09:17)
[2018-09-17] MEDS ORDERED: MINERAL OIL/PETROLAT/WATER TOPICAL CREAM 113 GM JAR TP PRN (09:30)
--- NOTE | 2018-09-17 10:02 | PN ---
S Progress Note (SOAP) Subjective: Patient had elevated BP this AM, was seen by night I O PSYCHOLOGIST and given clonidine. BP is now 134/68. PMHx of HTN, on lisinopril to control. He receives his BP medications at 10 AM while here, states he is use to taking them at 6am. Denies dizziness, but reports a headache treated with tylenol. Objective: A+O x3, no neurological deficits noted, heart rate regular, S1 S2 audible. Lungs clear. Obese. BP taken during this examination: 134/68 after receiving lisinopril 10 mg at 9AM (one hour before this BP). Vital Signs (72 hours) 09/16/18 09/17/18 09/17/18 15:08 00:30 03:30 Temperature 97.9 F Pulse Rate 74 Respiratory 17 18 18 Rate Blood Pressure 133/76 09/17/18 09/17/18 06:35 06:39 Temperature 97.6 F Pulse Rate 78 Respiratory 18 Rate Blood Pressure 165/114 H 165/114 H 09/17/18 09:58 09/17/18 09:59 09/17/18 10:02 Assessment: HTN, Responsive to lisinopril as evidenced by reduction in BP 1 hour after administration of medication. 09/17/18 10:00 09/17/18 10:04 09/17/18 10:04 Plan: Medication administration time changed to 6AM, patient agrees with plan. Discussed low sodium diet. Will continue to monitor If BP continues to be elevated, will consider increasing dose of lisinopril or adding another medication.
[2018-09-17 10:18] LABS: HEMATOCRIT 39.1 % (35.4-49); HEMOGLOBIN 12.5 GM/dL (11.7-16.9); MCHC 31.9 g/dl (32.0-35.9); MEAN CELL VOLUME 75.4 fl (80-96); MEAN PLT VOLUME 8.9 fl (7.5-11.1); RBC 5.18 M/mm3 (4.00-5.60); RDW 16.7 % (11.9-15.9); WHITE BLOOD COUNT 7.1 K/mm3 (4.0-10.0)
[2018-09-17] MEDS: TIOTROPIUM BROMIDE 2.5 MCG (SPIRIVA) RESPIMAT INHALER IH SCH (10:21)
[2018-09-17 10:35] LABS: PLATELET COUNT 232 K/MM3 (134-434)
[2018-09-17 10:44] LABS: ALBUMIN 3.1 g/dl (3.4-5.0); BILIRUBIN,TOTAL 0.2 mg/dL (0.2-1); BLOOD UREA NITROGEN 8.5 mg/dL (7-18); CALCIUM 8.9 mg/dL (8.5-10.1); CREATININE 0.9 mg/dL (0.55-1.3); POTASSIUM 4.8 mmol/L (3.5-5.1); TOT PROT 6.5 g/dl (6.4-8.2)
[2018-09-17] MEDS: THIAMINE HCL 100 MG TABLET (FP) PO SCH (22:03)
[2018-09-17] MEDS: DOCUSATE SODIUM 100 MG CAPSULE (FP) PO SCH (22:03)
[2018-09-17] MEDS: SENNOSIDES 8.6MG TABLET (FP) PO SCH (22:03)
[2018-09-17] MEDS: TOLNAFTATE 1% POWDER 45 GM POW TP SCH (22:05)
[2018-09-17] MEDS: COLLOIDAL OATMEAL 1 BAR EACH TP PRN (22:06)
[2018-09-18] MEDS ORDERED: METHADONE HCL 10 MG TABLET ONE (03:13)
[2018-09-18] MEDS ORDERED: METHADONE HCL 40 MG DISPERSABLE TABLET ONE (03:13)
[2018-09-18] MEDS: METHADONE 120 MG, METHADONE 30 MG PO SCH (06:12)
[2018-09-18] MEDS: metFORMIN HCL 500 MG TABLET (FP) PO SCH ×2 (06:13→17:39)
[2018-09-18] MEDS ORDERED: NYSTATIN POWDER 100,000 UNITS/GM - 15 GM TOPICAL POWDER TP SCH (10:00)
[2018-09-18] MEDS: PRENATAL VITAMINS W/ FOLIC ACID TABLET (FP) PO SCH (10:33)
[2018-09-18] MEDS: NICOTINE 14 MG/24 HOURS TOPICAL PATCH TD SCH (10:33)
[2018-09-18] MEDS: TIOTROPIUM BROMIDE 2.5 MCG (SPIRIVA) RESPIMAT INHALER IH SCH (10:33)
[2018-09-18] MEDS: LISINOPRIL 10 MG TABLET (FP) PO SCH (10:33)
[2018-09-18] MEDS: TOLNAFTATE 1% POWDER 45 GM POW TP SCH ×2 (11:02→21:19)
[2018-09-18] MEDS: THIAMINE HCL 100 MG TABLET (FP) PO SCH (21:17)
[2018-09-18] MEDS: ACETAMINOPHEN 325 MG TABLET (FP) PO PRN (21:17)
[2018-09-18] MEDS: SENNOSIDES 8.6MG TABLET (FP) PO SCH (21:18)
[2018-09-18] MEDS: DOCUSATE SODIUM 100 MG CAPSULE (FP) PO SCH (21:18)
[2018-09-19] MEDS ORDERED: METHADONE HCL 10 MG TABLET ONE (03:21)
[2018-09-19] MEDS ORDERED: METHADONE HCL 40 MG DISPERSABLE TABLET ONE (03:21)
[2018-09-19] MEDS: METHADONE 120 MG, METHADONE 30 MG PO SCH (06:21)
[2018-09-19] MEDS: metFORMIN HCL 500 MG TABLET (FP) PO SCH ×2 (06:47→17:20)
[2018-09-19] MEDS: COLLOIDAL OATMEAL 1 BAR EACH TP PRN (07:26)
[2018-09-19] MEDS: LISINOPRIL 10 MG TABLET (FP) PO SCH (09:56)
[2018-09-19] MEDS: PRENATAL VITAMINS W/ FOLIC ACID TABLET (FP) PO SCH (09:56)
[2018-09-19] MEDS: TIOTROPIUM BROMIDE 2.5 MCG (SPIRIVA) RESPIMAT INHALER IH SCH (09:56)
[2018-09-19] MEDS: TOLNAFTATE 1% POWDER 45 GM POW TP SCH ×2 (09:57→22:34)
[2018-09-19] MEDS: NICOTINE 14 MG/24 HOURS TOPICAL PATCH TD SCH (09:57)
[2018-09-19] MEDS: DOCUSATE SODIUM 100 MG CAPSULE (FP) PO SCH (22:34)
[2018-09-19] MEDS: THIAMINE HCL 100 MG TABLET (FP) PO SCH (22:34)
[2018-09-19] MEDS: SENNOSIDES 8.6MG TABLET (FP) PO SCH (22:34)
[2018-09-20] MEDS ORDERED: METHADONE HCL 10 MG TABLET ONE (02:58)
[2018-09-20] MEDS ORDERED: METHADONE HCL 40 MG DISPERSABLE TABLET ONE (02:58)
[2018-09-20] MEDS: METHADONE 120 MG, METHADONE 30 MG PO SCH (06:03)
[2018-09-20] MEDS: IBUPROFEN 400 MG TABLET (FP) PO PRN (06:05)
[2018-09-20] MEDS: metFORMIN HCL 500 MG TABLET (FP) PO SCH ×2 (07:01→17:26)
[2018-09-20] MEDS: NICOTINE 14 MG/24 HOURS TOPICAL PATCH TD SCH (09:27)
[2018-09-20] MEDS: LISINOPRIL 10 MG TABLET (FP) PO SCH (09:28)
[2018-09-20] MEDS: TIOTROPIUM BROMIDE 2.5 MCG (SPIRIVA) RESPIMAT INHALER IH SCH (09:28)
[2018-09-20] MEDS: PRENATAL VITAMINS W/ FOLIC ACID TABLET (FP) PO SCH (09:28)
[2018-09-20] MEDS: TOLNAFTATE 1% POWDER 45 GM POW TP SCH ×2 (09:29→21:19)
[2018-09-20] MEDS: THIAMINE HCL 100 MG TABLET (FP) PO SCH (21:19)
[2018-09-20] MEDS: DOCUSATE SODIUM 100 MG CAPSULE (FP) PO SCH (21:20)
[2018-09-20] MEDS: SENNOSIDES 8.6MG TABLET (FP) PO SCH (21:21)
[2018-09-21] MEDS ORDERED: METHADONE HCL 40 MG DISPERSABLE TABLET ONE (03:39)
[2018-09-21] MEDS ORDERED: METHADONE HCL 10 MG TABLET ONE (03:39)
[2018-09-21] MEDS: METHADONE 120 MG, METHADONE 30 MG PO SCH (06:24)
[2018-09-21] MEDS: metFORMIN HCL 500 MG TABLET (FP) PO SCH ×2 (06:25→17:01)
[2018-09-21] MEDS: TIOTROPIUM BROMIDE 2.5 MCG (SPIRIVA) RESPIMAT INHALER IH SCH (09:51)
[2018-09-21] MEDS: PRENATAL VITAMINS W/ FOLIC ACID TABLET (FP) PO SCH (09:51)
[2018-09-21] MEDS: NICOTINE 14 MG/24 HOURS TOPICAL PATCH TD SCH (09:51)
[2018-09-21] MEDS: LISINOPRIL 10 MG TABLET (FP) PO SCH (09:51)
[2018-09-21] MEDS: TOLNAFTATE 1% POWDER 45 GM POW TP SCH ×2 (09:52→22:10)
[2018-09-21] MEDS: DOCUSATE SODIUM 100 MG CAPSULE (FP) PO SCH (22:06)
[2018-09-21] MEDS: THIAMINE HCL 100 MG TABLET (FP) PO SCH (22:06)
[2018-09-21] MEDS: SENNOSIDES 8.6MG TABLET (FP) PO SCH (22:07)
[2018-09-21] MEDS: IBUPROFEN 400 MG TABLET (FP) PO PRN (22:08)
[2018-09-21] MEDS: MELATONIN 5 MG TABLETS PO PRN (22:08)
[2018-09-22] MEDS ORDERED: METHADONE HCL 10 MG TABLET ONE (05:09)
[2018-09-22] MEDS ORDERED: METHADONE HCL 40 MG DISPERSABLE TABLET ONE (05:09)
[2018-09-22] MEDS: METHADONE 120 MG, METHADONE 30 MG PO SCH (06:50)
[2018-09-22] MEDS: metFORMIN HCL 500 MG TABLET (FP) PO SCH ×2 (07:02→17:22)
[2018-09-22] MEDS: TIOTROPIUM BROMIDE 2.5 MCG (SPIRIVA) RESPIMAT INHALER IH SCH (09:39)
[2018-09-22] MEDS: NICOTINE 14 MG/24 HOURS TOPICAL PATCH TD SCH (09:39)
[2018-09-22] MEDS: LISINOPRIL 10 MG TABLET (FP) PO SCH (09:39)
[2018-09-22] MEDS: PRENATAL VITAMINS W/ FOLIC ACID TABLET (FP) PO SCH (09:39)
[2018-09-22] MEDS: TOLNAFTATE 1% POWDER 45 GM POW TP SCH ×2 (09:42→21:22)
[2018-09-22] MEDS ORDERED: PT OWN MED DRAWER 7, Y5N ONE (09:42)
[2018-09-22] MEDS: COLLOIDAL OATMEAL 1 BAR EACH TP PRN (15:11)
[2018-09-22] MEDS: THIAMINE HCL 100 MG TABLET (FP) PO SCH (21:19)
[2018-09-22] MEDS: MELATONIN 5 MG TABLETS PO PRN (21:19)
[2018-09-22] MEDS: SENNOSIDES 8.6MG TABLET (FP) PO SCH (21:19)
[2018-09-22] MEDS: DOCUSATE SODIUM 100 MG CAPSULE (FP) PO SCH (21:19)
[2018-09-23] MEDS ORDERED: METHADONE HCL 10 MG TABLET ONE (04:17)
[2018-09-23] MEDS ORDERED: METHADONE HCL 40 MG DISPERSABLE TABLET ONE (04:17)
[2018-09-23] MEDS: METHADONE 120 MG, METHADONE 30 MG PO SCH (06:37)
[2018-09-23] MEDS: metFORMIN HCL 500 MG TABLET (FP) PO SCH ×2 (07:09→16:50)
[2018-09-23] MEDS: LISINOPRIL 10 MG TABLET (FP) PO SCH (10:25)
[2018-09-23] MEDS: TOLNAFTATE 1% POWDER 45 GM POW TP SCH ×2 (10:25→22:03)
[2018-09-23] MEDS: NICOTINE 14 MG/24 HOURS TOPICAL PATCH TD SCH (10:25)
[2018-09-23] MEDS: PRENATAL VITAMINS W/ FOLIC ACID TABLET (FP) PO SCH (10:25)
[2018-09-23] MEDS: TIOTROPIUM BROMIDE 2.5 MCG (SPIRIVA) RESPIMAT INHALER IH SCH (10:26)
[2018-09-23] MEDS: DOCUSATE SODIUM 100 MG CAPSULE (FP) PO SCH (21:47)
[2018-09-23] MEDS: SENNOSIDES 8.6MG TABLET (FP) PO SCH (21:47)
[2018-09-23] MEDS: THIAMINE HCL 100 MG TABLET (FP) PO SCH (21:47)
[2018-09-23] MEDS: ACETAMINOPHEN 325 MG TABLET (FP) PO PRN (21:48)
[2018-09-23] MEDS: MELATONIN 5 MG TABLETS PO PRN (21:49)
[2018-09-24] MEDS ORDERED: METHADONE HCL 10 MG TABLET ONE (06:22)
[2018-09-24] MEDS: metFORMIN HCL 500 MG TABLET (FP) PO SCH ×2 (06:23→17:09)
[2018-09-24] MEDS ORDERED: METHADONE HCL 40 MG DISPERSABLE TABLET ONE (06:23)
[2018-09-24] MEDS: METHADONE 120 MG, METHADONE 30 MG PO SCH (06:24)
[2018-09-24] MEDS ORDERED: PT OWN MED DRAWER 7, Y5N ONE (08:30)
[2018-09-24] MEDS: PRENATAL VITAMINS W/ FOLIC ACID TABLET (FP) PO SCH (11:07)
[2018-09-24] MEDS: LISINOPRIL 10 MG TABLET (FP) PO SCH (11:07)
[2018-09-24] MEDS: TIOTROPIUM BROMIDE 2.5 MCG (SPIRIVA) RESPIMAT INHALER IH SCH (11:08)
[2018-09-24] MEDS: TOLNAFTATE 1% POWDER 45 GM POW TP SCH ×2 (11:09→21:14)
[2018-09-24] MEDS: NICOTINE 14 MG/24 HOURS TOPICAL PATCH TD SCH (11:10)
[2018-09-24] MEDS: SENNOSIDES 8.6MG TABLET (FP) PO SCH (21:12)
[2018-09-24] MEDS: DOCUSATE SODIUM 100 MG CAPSULE (FP) PO SCH (21:12)
[2018-09-24] MEDS: MELATONIN 5 MG TABLETS PO PRN (21:13)
[2018-09-24] MEDS: THIAMINE HCL 100 MG TABLET (FP) PO SCH (21:13)
[2018-09-25] MEDS ORDERED: METHADONE HCL 10 MG TABLET ONE (05:02)
[2018-09-25] MEDS ORDERED: METHADONE HCL 40 MG DISPERSABLE TABLET ONE (05:02)
[2018-09-25] MEDS: METHADONE 120 MG, METHADONE 30 MG PO SCH (06:19)
[2018-09-25] MEDS: metFORMIN HCL 500 MG TABLET (FP) PO SCH ×2 (07:06→16:36)
[2018-09-25] MEDS ORDERED: PT OWN MED DRAWER 7, Y5N ONE (08:28)
[2018-09-25] MEDS: NICOTINE 14 MG/24 HOURS TOPICAL PATCH TD SCH (10:35)
[2018-09-25] MEDS: LISINOPRIL 10 MG TABLET (FP) PO SCH (10:35)
[2018-09-25] MEDS: PRENATAL VITAMINS W/ FOLIC ACID TABLET (FP) PO SCH (10:35)
[2018-09-25] MEDS: TIOTROPIUM BROMIDE 2.5 MCG (SPIRIVA) RESPIMAT INHALER IH SCH (10:36)
[2018-09-25] MEDS: ACETAMINOPHEN 325 MG TABLET (FP) PO PRN (10:37)
[2018-09-25] MEDS: TOLNAFTATE 1% POWDER 45 GM POW TP SCH ×2 (12:18→22:04)
[2018-09-25] MEDS: COLLOIDAL OATMEAL 1 BAR EACH TP PRN (16:36)
[2018-09-25] MEDS: IBUPROFEN 400 MG TABLET (FP) PO PRN (16:37)
[2018-09-25] MEDS: SENNOSIDES 8.6MG TABLET (FP) PO SCH (22:04)
[2018-09-25] MEDS: DOCUSATE SODIUM 100 MG CAPSULE (FP) PO SCH (22:04)
[2018-09-25] MEDS: THIAMINE HCL 100 MG TABLET (FP) PO SCH (22:04)
[2018-09-25] MEDS: MELATONIN 5 MG TABLETS PO PRN (22:05)
[2018-09-26] MEDS ORDERED: METHADONE HCL 40 MG DISPERSABLE TABLET ONE (05:08)
[2018-09-26] MEDS ORDERED: METHADONE HCL 10 MG TABLET ONE (05:08)
[2018-09-26] MEDS: METHADONE 120 MG, METHADONE 30 MG PO SCH (06:15)
[2018-09-26] MEDS: metFORMIN HCL 500 MG TABLET (FP) PO SCH ×2 (07:01→16:51)
[2018-09-26] MEDS: LISINOPRIL 10 MG TABLET (FP) PO SCH (09:52)
[2018-09-26] MEDS: PRENATAL VITAMINS W/ FOLIC ACID TABLET (FP) PO SCH (09:52)
[2018-09-26] MEDS: NICOTINE 14 MG/24 HOURS TOPICAL PATCH TD SCH (09:52)
[2018-09-26] MEDS: TIOTROPIUM BROMIDE 2.5 MCG (SPIRIVA) RESPIMAT INHALER IH SCH (09:53)
[2018-09-26] MEDS: TOLNAFTATE 1% POWDER 45 GM POW TP SCH ×2 (09:54→22:14)
[2018-09-26] MEDS ORDERED: PT OWN MED DRAWER 7, Y5N ONE (09:55)
[2018-09-26] MEDS: DOCUSATE SODIUM 100 MG CAPSULE (FP) PO SCH (22:12)
[2018-09-26] MEDS: THIAMINE HCL 100 MG TABLET (FP) PO SCH (22:12)
[2018-09-26] MEDS: SENNOSIDES 8.6MG TABLET (FP) PO SCH (22:12)
[2018-09-26] MEDS: MELATONIN 5 MG TABLETS PO PRN (22:13)
[2018-09-27] MEDS ORDERED: METHADONE HCL 10 MG TABLET ONE (05:35)
[2018-09-27] MEDS ORDERED: METHADONE HCL 40 MG DISPERSABLE TABLET ONE (05:35)
[2018-09-27] MEDS: METHADONE 120 MG, METHADONE 30 MG PO SCH (06:25)
[2018-09-27] MEDS: metFORMIN HCL 500 MG TABLET (FP) PO SCH ×2 (07:01→16:56)
[2018-09-27] MEDS: LISINOPRIL 10 MG TABLET (FP) PO SCH (09:50)
[2018-09-27] MEDS: PRENATAL VITAMINS W/ FOLIC ACID TABLET (FP) PO SCH (09:50)
[2018-09-27] MEDS: TIOTROPIUM BROMIDE 2.5 MCG (SPIRIVA) RESPIMAT INHALER IH SCH (09:51)
[2018-09-27] MEDS: TOLNAFTATE 1% POWDER 45 GM POW TP SCH ×2 (09:51→22:04)
[2018-09-27] MEDS: NICOTINE 14 MG/24 HOURS TOPICAL PATCH TD SCH (09:51)
[2018-09-27] MEDS: SENNOSIDES 8.6MG TABLET (FP) PO SCH (22:02)
[2018-09-27] MEDS: DOCUSATE SODIUM 100 MG CAPSULE (FP) PO SCH (22:03)
[2018-09-27] MEDS: MELATONIN 5 MG TABLETS PO PRN (22:03)
[2018-09-27] MEDS: THIAMINE HCL 100 MG TABLET (FP) PO SCH (22:03)
[2018-09-28] MEDS ORDERED: METHADONE HCL 10 MG TABLET ONE (03:13)
[2018-09-28] MEDS ORDERED: METHADONE HCL 40 MG DISPERSABLE TABLET ONE (03:14)
[2018-09-28] MEDS: METHADONE 120 MG, METHADONE 30 MG PO SCH (06:30)
[2018-09-28] MEDS: metFORMIN HCL 500 MG TABLET (FP) PO SCH ×2 (06:32→16:50)
[2018-09-28] MEDS: TOLNAFTATE 1% POWDER 45 GM POW TP SCH ×2 (10:03→22:00)
[2018-09-28] MEDS: TIOTROPIUM BROMIDE 2.5 MCG (SPIRIVA) RESPIMAT INHALER IH SCH (10:26)
[2018-09-28] MEDS: NICOTINE 14 MG/24 HOURS TOPICAL PATCH TD SCH (10:26)
[2018-09-28] MEDS: PRENATAL VITAMINS W/ FOLIC ACID TABLET (FP) PO SCH (10:26)
[2018-09-28] MEDS: LISINOPRIL 10 MG TABLET (FP) PO SCH (10:26)
[2018-09-28] MEDS: ACETAMINOPHEN 325 MG TABLET (FP) PO PRN ×2 (14:21→21:51)
[2018-09-28] MEDS: MELATONIN 5 MG TABLETS PO PRN (21:50)
[2018-09-28] MEDS: SENNOSIDES 8.6MG TABLET (FP) PO SCH (21:50)
[2018-09-28] MEDS: DOCUSATE SODIUM 100 MG CAPSULE (FP) PO SCH (21:50)
[2018-09-28] MEDS: THIAMINE HCL 100 MG TABLET (FP) PO SCH (21:50)
[2018-09-29] MEDS ORDERED: METHADONE HCL 10 MG TABLET ONE (05:37)
[2018-09-29] MEDS ORDERED: METHADONE HCL 40 MG DISPERSABLE TABLET ONE (05:37)
[2018-09-29] MEDS: METHADONE 120 MG, METHADONE 30 MG PO SCH (06:30)
[2018-09-29] MEDS: COLLOIDAL OATMEAL 1 BAR EACH TP PRN (06:33)
[2018-09-29] MEDS: metFORMIN HCL 500 MG TABLET (FP) PO SCH ×2 (07:09→16:32)
[2018-09-29] MEDS: NICOTINE 14 MG/24 HOURS TOPICAL PATCH TD SCH (10:00)
[2018-09-29] MEDS: LISINOPRIL 10 MG TABLET (FP) PO SCH (10:00)
[2018-09-29] MEDS: PRENATAL VITAMINS W/ FOLIC ACID TABLET (FP) PO SCH (10:00)
[2018-09-29] MEDS ORDERED: PT OWN MED DRAWER 7, Y5N ONE (10:01)
[2018-09-29] MEDS: IBUPROFEN 400 MG TABLET (FP) PO PRN ×2 (10:02→21:38)
[2018-09-29] MEDS: TOLNAFTATE 1% POWDER 45 GM POW TP SCH ×2 (10:04→21:38)
[2018-09-29] MEDS: TIOTROPIUM BROMIDE 2.5 MCG (SPIRIVA) RESPIMAT INHALER IH SCH (10:04)
[2018-09-29] MEDS: MELATONIN 5 MG TABLETS PO PRN (21:37)
[2018-09-29] MEDS: SENNOSIDES 8.6MG TABLET (FP) PO SCH (21:37)
[2018-09-29] MEDS: DOCUSATE SODIUM 100 MG CAPSULE (FP) PO SCH (21:37)
[2018-09-29] MEDS: THIAMINE HCL 100 MG TABLET (FP) PO SCH (21:37)
[2018-09-30] MEDS ORDERED: METHADONE HCL 40 MG DISPERSABLE TABLET ONE (05:38)
[2018-09-30] MEDS ORDERED: METHADONE HCL 10 MG TABLET ONE (05:38)
[2018-09-30] MEDS: METHADONE 120 MG, METHADONE 30 MG PO SCH (06:21)
[2018-09-30] MEDS: metFORMIN HCL 500 MG TABLET (FP) PO SCH ×2 (07:00→17:01)
[2018-09-30] MEDS: LISINOPRIL 10 MG TABLET (FP) PO SCH (10:53)
[2018-09-30] MEDS: NICOTINE 14 MG/24 HOURS TOPICAL PATCH TD SCH (10:53)
[2018-09-30] MEDS: PRENATAL VITAMINS W/ FOLIC ACID TABLET (FP) PO SCH (10:53)
[2018-09-30] MEDS: TIOTROPIUM BROMIDE 2.5 MCG (SPIRIVA) RESPIMAT INHALER IH SCH (10:53)
[2018-09-30] MEDS: TOLNAFTATE 1% POWDER 45 GM POW TP SCH ×2 (10:54→21:16)
[2018-09-30] MEDS: SENNOSIDES 8.6MG TABLET (FP) PO SCH (21:13)
[2018-09-30] MEDS: DOCUSATE SODIUM 100 MG CAPSULE (FP) PO SCH (21:13)
[2018-09-30] MEDS: THIAMINE HCL 100 MG TABLET (FP) PO SCH (21:14)
[2018-09-30] MEDS: MELATONIN 5 MG TABLETS PO PRN (21:14)
[2018-09-30] MEDS: ACETAMINOPHEN 325 MG TABLET (FP) PO PRN (21:15)
[2018-10-01] MEDS ORDERED: METHADONE HCL 40 MG DISPERSABLE TABLET ONE (05:45)
[2018-10-01] MEDS ORDERED: METHADONE HCL 10 MG TABLET ONE (05:45)
[2018-10-01] MEDS: METHADONE 120 MG, METHADONE 30 MG PO SCH (06:17)
[2018-10-01] MEDS: metFORMIN HCL 500 MG TABLET (FP) PO SCH ×2 (07:01→16:38)
[2018-10-01 07:03] VITALS: TEMP 97.4
[2018-10-01] MEDS: LISINOPRIL 10 MG TABLET (FP) PO SCH (09:39)
[2018-10-01] MEDS: TIOTROPIUM BROMIDE 2.5 MCG (SPIRIVA) RESPIMAT INHALER IH SCH (09:39)
[2018-10-01] MEDS: PRENATAL VITAMINS W/ FOLIC ACID TABLET (FP) PO SCH (09:40)
[2018-10-01] MEDS: NICOTINE 14 MG/24 HOURS TOPICAL PATCH TD SCH (09:40)
[2018-10-01] MEDS: TOLNAFTATE 1% POWDER 45 GM POW TP SCH ×2 (09:41→21:46)
[2018-10-01] MEDS ORDERED: PT OWN MED DRAWER 7, Y5N ONE (09:42)
[2018-10-01] MEDS: ACETAMINOPHEN 325 MG TABLET (FP) PO PRN ×3 (12:52→21:46)
[2018-10-01] MEDS: MELATONIN 5 MG TABLETS PO PRN (21:45)
[2018-10-01] MEDS: SENNOSIDES 8.6MG TABLET (FP) PO SCH (21:45)
[2018-10-01] MEDS: DOCUSATE SODIUM 100 MG CAPSULE (FP) PO SCH (21:45)
[2018-10-01] MEDS: THIAMINE HCL 100 MG TABLET (FP) PO SCH (21:45)
[2018-10-02] MEDS ORDERED: METHADONE HCL 40 MG DISPERSABLE TABLET ONE (05:36)
[2018-10-02] MEDS ORDERED: METHADONE HCL 10 MG TABLET ONE (05:36)
[2018-10-02] MEDS: METHADONE 120 MG, METHADONE 30 MG PO SCH (06:16)
[2018-10-02] MEDS: metFORMIN HCL 500 MG TABLET (FP) PO SCH (07:39)
[2018-10-02 09:12] VITALS: BP 120/71; PULSE 81
[2018-10-02] MEDS: LISINOPRIL 10 MG TABLET (FP) PO SCH (09:20)
[2018-10-02] MEDS: NICOTINE 14 MG/24 HOURS TOPICAL PATCH TD SCH (09:20)
[2018-10-02] MEDS: PRENATAL VITAMINS W/ FOLIC ACID TABLET (FP) PO SCH (09:20)
[2018-10-02] MEDS: TIOTROPIUM BROMIDE 2.5 MCG (SPIRIVA) RESPIMAT INHALER IH SCH (09:20)
--- NOTE | 2018-10-02 10:51 | PN ---
[facility] Progress Note Note: REHAB DISCHARGE NOTE PATIENT REQUESTED TO HAVE AN EARLY DISCHARGE FROM REHAB FOR ALCOHOL, CRACK AND MARIJUANA DEPENDENCE AFTER 14 DAYS. PATIENT STATES HE HAS ACCOMPLISHED ALL REHAB GOALS AND IS READY TO LEAVE DESPITE ENCOURAGED TO STAY IN REHAB. PATIENT TO FOLLOW UP WITH [facility] 10/03/18 AT 7AM FOR METHADONE MAINTENANCE AND STATES HE WILL ARRANGE HIS OWN [facility] TREATMENT AT [facility] ON HIS OWN. PATIENT IS MEDICALLY STABLE AT THIS TIME AND DENIES SI/HI. PATIENT'S REHAB ADMISSION WAS COMPLETED WITHOUT SIGNIFICANT CHANGES. PATIENT HAD EPISODE OF ELEVATED BLOOD PRESSURE WHICH WAS TREATED WITH MEDICATION DURING ADMISSION. PATIENT ENCOURAGED TO CONTINUE WITH AFTERCARE GROUPS TO PREVENT RELAPSE. Vital Signs Temperature 97.4 F L 10/02/18 06:43 Pulse Rate 81 10/02/18 09:12 Respiratory Rate 18 10/02/18 09:12 Blood Pressure 120/71 10/02/18 09:12 O2 Sat by Pulse Oximetry (%) Laboratory Tests 09/16/18 09/16/18 09/17/18 18:22 22:47 06:24 WBC RBC Hgb Hct MCV MCH MCHC RDW Plt Count MPV Sodium Potassium Chloride Carbon Dioxide Anion Gap BUN Creatinine Est GFR (CKD-EPI)AfAm Est GFR (CKD-EPI)NonAf POC Glucometer 139 120 Random Glucose Calcium Total Bilirubin AST ALT Alkaline Phosphatase Total Protein Albumin Urine Color Dk yellow Urine Appearance Turbid Urine pH 5.0 Ur Specific Perry 1.034 Urine Protein Negative Urine Glucose (UA) Negative Urine Ketones Trace H Urine Blood Negative Urine Nitrite Negative Urine Bilirubin Negative Urine Urobilinogen 1.0 Ur Leukocyte Esterase Negative 09/17/18 09/17/18 09/17/18 07:00 07:00 16:55 WBC 7.1 RBC 5.18 Hgb 12.5 Hct 39.1 MCV 75.4 L MCH 24.0 L MCHC 31.9 L RDW 16.7 H Plt Count 232 MPV 8.9 Sodium 143 Potassium 4.8 Chloride 105 Carbon Dioxide 29 Anion Gap 9 BUN 8.5 Creatinine 0.9 Est GFR (CKD-EPI)AfAm 121.67 Est GFR (CKD-EPI)NonAf 104.98 POC Glucometer 120 Random Glucose 139 H Calcium 8.9 Total Bilirubin 0.2 AST 11 L ALT 17 Alkaline Phosphatase 79 Total Protein 6.5 Albumin 3.1 L Urine Color Urine Appearance Urine pH Ur Specific Perry Urine Protein Urine Glucose (UA) Urine Ketones Urine Blood Urine Nitrite Urine Bilirubin Urine Urobilinogen Ur Leukocyte Esterase 09/18/18 09/18/18 09/18/18 06:12 11:44 16:48 WBC RBC Hgb Hct MCV MCH MCHC RDW Plt Count MPV Sodium Potassium Chloride Carbon Dioxide Anion Gap BUN Creatinine Est GFR (CKD-EPI)AfAm Est GFR (CKD-EPI)NonAf POC Glucometer 114 98 117 Random Glucose Calcium Total Bilirubin AST ALT Alkaline Phosphatase Total Protein Albumin Urine Color Urine Appearance Urine pH Ur Specific Perry Urine Protein Urine Glucose (UA) Urine Ketones Urine Blood Urine Nitrite Urine Bilirubin Urine Urobilinogen Ur Leukocyte Esterase 09/19/18 09/20/18 09/20/18 06:22 06:05 17:24 WBC RBC Hgb Hct MCV MCH MCHC RDW Plt Count MPV Sodium Potassium Chloride Carbon Dioxide Anion Gap BUN Creatinine Est GFR (CKD-EPI)AfAm Est GFR (CKD-EPI)NonAf POC Glucometer 94 92 109 Random Glucose Calcium Total Bilirubin AST ALT Alkaline Phosphatase Total Protein Albumin Urine Color Urine Appearance Urine pH Ur Specific Perry Urine Protein Urine Glucose (UA) Urine Ketones Urine Blood Urine Nitrite Urine Bilirubin Urine Urobilinogen Ur Leukocyte Esterase 09/21/18 09/21/18 09/22/18 06:24 17:00 06:50 WBC RBC Hgb Hct MCV MCH MCHC RDW Plt Count MPV Sodium Potassium Chloride Carbon Dioxide Anion Gap BUN Creatinine Est GFR (CKD-EPI)AfAm Est GFR (CKD-EPI)NonAf POC Glucometer 121 146 122 Random Glucose Calcium Total Bilirubin AST ALT Alkaline Phosphatase Total Protein Albumin Urine Color Urine Appearance Urine pH Ur Specific Perry Urine Protein Urine Glucose (UA) Urine Ketones Urine Blood Urine Nitrite Urine Bilirubin Urine Urobilinogen Ur Leukocyte Esterase 09/22/18 09/23/18 09/23/18 16:54 06:17 16:49 WBC RBC Hgb Hct MCV MCH MCHC RDW Plt Count MPV Sodium Potassium Chloride Carbon Dioxide Anion Gap BUN Creatinine Est GFR (CKD-EPI)AfAm Est GFR (CKD-EPI)NonAf POC Glucometer 112 115 109 Random Glucose Calcium Total Bilirubin AST ALT Alkaline Phosphatase Total Protein Albumin Urine Color Urine Appearance Urine pH Ur Specific Perry Urine Protein Urine Glucose (UA) Urine Ketones Urine Blood Urine Nitrite Urine Bilirubin Urine Urobilinogen Ur Leukocyte Esterase 09/24/18 09/24/1809/25/19 06:21 17:08 06:19 WBC RBC Hgb Hct MCV MCH MCHC RDW Plt Count MPV Sodium Potassium Chloride Carbon Dioxide Anion Gap BUN Creatinine Est GFR (CKD-EPI)AfAm Est GFR (CKD-EPI)NonAf POC Glucometer 145 128 91 Random Glucose Calcium Total Bilirubin AST ALT Alkaline Phosphatase Total Protein Albumin Urine Color Urine Appearance Urine pH Ur Specific Perry Urine Protein Urine Glucose (UA) Urine Ketones Urine Blood Urine Nitrite Urine Bilirubin Urine Urobilinogen Ur Leukocyte Esterase 09/25/18 09/26/18 09/26/18 16:33 06:14 16:50 WBC RBC Hgb Hct MCV MCH MCHC RDW Plt Count MPV Sodium Potassium Chloride Carbon Dioxide Anion Gap BUN Creatinine Est GFR (CKD-EPI)AfAm Est GFR (CKD-EPI)NonAf POC Glucometer 154 102 151 Random Glucose Calcium Total Bilirubin AST ALT Alkaline Phosphatase Total Protein Albumin Urine Color Urine Appearance Urine pH Ur Specific Perry Urine Protein Urine Glucose (UA) Urine Ketones Urine Blood Urine Nitrite Urine Bilirubin Urine Urobilinogen Ur Leukocyte Esterase 09/27/18 09/27/18 09/28/18 06:24 16:56 06:30 WBC RBC Hgb Hct MCV MCH MCHC RDW Plt Count MPV Sodium Potassium Chloride Carbon Dioxide Anion Gap BUN Creatinine Est GFR (CKD-EPI)AfAm Est GFR (CKD-EPI)NonAf POC Glucometer 106 112 105 Random Glucose Calcium Total Bilirubin AST ALT Alkaline Phosphatase Total Protein Albumin Urine Color Urine Appearance Urine pH Ur Specific Perry Urine Protein Urine Glucose (UA) Urine Ketones Urine Blood Urine Nitrite Urine Bilirubin Urine Urobilinogen Ur Leukocyte Esterase 09/28/18 09/29/18 09/29/18 16:50 06:29 16:30 WBC RBC Hgb Hct MCV MCH MCHC RDW Plt Count MPV Sodium Potassium Chloride Carbon Dioxide Anion Gap BUN Creatinine Est GFR (CKD-EPI)AfAm Est GFR (CKD-EPI)NonAf POC Glucometer 99 95 121 Random Glucose Calcium Total Bilirubin AST ALT Alkaline Phosphatase Total Protein Albumin Urine Color Urine Appearance Urine pH Ur Specific Perry Urine Protein Urine Glucose (UA) Urine Ketones Urine Blood Urine Nitrite Urine Bilirubin Urine Urobilinogen Ur Leukocyte Esterase 09/30/18 09/30/18 10/01/18 06:21 17:00 06:16 WBC RBC Hgb Hct MCV MCH MCHC RDW Plt Count MPV Sodium Potassium Chloride Carbon Dioxide Anion Gap BUN Creatinine Est GFR (CKD-EPI)AfAm Est GFR (CKD-EPI)NonAf POC Glucometer 106 147 126 Random Glucose Calcium Total Bilirubin AST ALT Alkaline Phosphatase Total Protein Albumin Urine Color Urine Appearance Urine pH Ur Specific Perry Urine Protein Urine Glucose (UA) Urine Ketones Urine Blood Urine Nitrite Urine Bilirubin Urine Urobilinogen Ur Leukocyte Esterase 10/01/18 10/02/18 16:38 06:16 WBC RBC Hgb Hct MCV MCH MCHC RDW Plt Count MPV Sodium Potassium Chloride Carbon Dioxide Anion Gap BUN Creatinine Est GFR (CKD-EPI)AfAm Est GFR (CKD-EPI)NonAf POC Glucometer 121 97 Random Glucose Calcium Total Bilirubin AST ALT Alkaline Phosphatase Total Protein Albumin Urine Color Urine Appearance Urine pH Ur Specific Perry Urine Protein Urine Glucose (UA) Urine Ketones Urine Blood Urine Nitrite Urine Bilirubin Urine Urobilinogen Ur Leukocyte Esterase Ambulatory Orders Docusate Sodium [Colace] 200 mg PO HS 04/01/18 Methadone [Dolophine -] 140 mg PO DAILY 04/01/18 Sennosides [Senna] 3 tab PO HS 04/01/18 Lisinopril 10 mg PO DAILY #15 tablet 10/02/18 Metformin HCl [Glucophage] 1,000 mg PO BID #60 tablet 10/02/18 Tiotropium [place] [Spiriva] 1 inh IH DAILY #30 cap.w.dev 10/02/18 PE: ALERT AND ORIENTED X 3 SKIN WARM AND DRY +PERRLA, EOMS INTACT BL NECK SUPPLE, NO JV CAR S1S2 RESP CTA BL EXT FULL ROM, NO SWELLING AMB AD IAN A/P: ETOH DEPENDENCE CRACK/COCAINE DEPENDENCE MARIJUANA DEPENDENCE PATIENT STABLE FOR DISCHARGE FROM REHAB TODAY.
== END 2018-10-02 09:45 | disposition home or self-care (01) | DRG 772 ==
LOC: YASAS 11:45 → Y3W 17:19
PROVIDERS: ADMIT Neuromusculoskeletal Medicine & OMM; ATTEND Neuromusculoskeletal Medicine & OMM
PROC: HZ42ZZZ Group Counseling for Substance Abuse Treatment, Cognitive-Behavioral (ICD-10-PCS; principal; 2018-09-16)
DX: F10.20 Alcohol dependence, uncomplicated (principal); F11.20 Opioid dependence, uncomplicated; F14.20 Cocaine dependence, uncomplicated; F12.20 Cannabis dependence, uncomplicated; F17.210 Nicotine dependence, cigarettes, uncomplicated; F31.9 Bipolar disorder, unspecified; I10 Essential (primary) hypertension; J45.909 Unspecified asthma, uncomplicated; E11.9 Type 2 diabetes mellitus without complications; Z79.84 Long term (current) use of oral hypoglycemic drugs; E66.01 Morbid (severe) obesity due to excess calories; Z68.43 Body mass index [BMI] 50.0-59.9, adult; Z91.013 Allergy to seafood; Z98.84 Bariatric surgery status
CPT/HCPCS: 36415; 80053; 81003; 82962; 85027; J0735

== ENCOUNTER 2018-10-26 10:47 | Inpatient (IN) | payer OTHER ==
[2018-10-26 13:12] VITALS: BMI 51.0
[2018-10-26] MEDS ORDERED: MAG HYDROX/AL HYDROX/SIMETH 30 ML UNIT-DOSE CUP PO PRN (16:01)
[2018-10-26] MEDS ORDERED: IBUPROFEN 400 MG TABLET (FP) PO PRN (16:01)
[2018-10-26] MEDS ORDERED: BISMUTH SUBSALICYLATE 524 MG/30 ML UD PO PRN (16:01)
[2018-10-26] MEDS ORDERED: ACETAMINOPHEN 325 MG TABLET (FP) PO PRN ×2 (16:01)
[2018-10-26] MEDS ORDERED: MAGNESIUM HYDROX 2400MG/30ML ORAL SUSPENSION 30 ML CUP PO PRN (16:01)
[2018-10-26] MEDS ORDERED: chlordiazePOXIDE HCL 25 MG CAPSULE PO PRN (16:01)
[2018-10-26] MEDS ORDERED: METHOCARBAMOL 500 MG TABLET PO PRN (16:01)
[2018-10-26] MEDS ORDERED: MENTHOL/PHENOL 1 EACH UD MM PRN (16:01)
[2018-10-26] MEDS ORDERED: hydrOXYzine PAMOATE 25 MG CAPSULE (FP) PO PRN (16:01)
[2018-10-26] MEDS ORDERED: MAGNESIUM CITRATE 300 ML BOTTLE PO PRN (16:01)
--- NOTE | 2018-10-26 16:26 | PN ---
Teaching Attending Note Name of Resident: Kimi Morales ATTENDING PHYSICIAN STATEMENT I saw and evaluated the patient. I reviewed the resident's note and discussed the case with the resident. I agree with the resident's findings and plan as documented. SUBJECTIVE: this 43 years old male with alcohol dependence,heroin abused,mmtp 150 mg/day, last medication today,history of htn,iddm, syncope, OBJECTIVE: withdrawal signs and symptom Vital Signs Temperature 97.8 F 10/26/18 13:02 Pulse Rate 87 10/26/18 13:02 Respiratory Rate 16 10/26/18 13:02 Blood Pressure 98/63 10/26/18 13:02 O2 Sat by Pulse Oximetry (%) ASSESSMENT AND PLAN: This patient need inpatient detox,librium regimen,medically managed,diabetic monitoring,methadone maintenance 150 mgs/day, close monitoring,encourage to go to rehab after detox
--- NOTE | 2018-10-26 16:27 | HP ---
CIWA Score Nausea/Vomitin-Mild Nausea/No Vomiting Muscle Tremors: 4-Moderate,w/Arms Extend Anxiety: 1-Mildly Anxious Agitation: 1-Slight > Activity Paroxysmal Sweats: 3 Orientation: 0-Oriented Tacttile Disturbances: 2-Mild Itch/Numbness/Burn Auditory Disturbances: 0-None Visual Disturbances: 0-None Headache: 3-Moderate CIWA-Ar Total Score: 15 - Admission Criteria OASAS Guidelines: Admission for Medically Managed Detox: Requires at least one of the followin. CIWA greater than 12 2. Seizures within the past 24 hours 3. Delirium tremens within the past 24 hours 4. Hallucinations within the past 24 hours 5. Acute intervention needed for co occurring medical disorder 6. Acute intervention needed for co occurring psychiatric disorder 7. Severe withdrawal that cannot be handled at a lower level of care (continued vomiting, continued diarrhea, abnormal vital signs) requiring intravenous medication and/or fluids 8. Admission ROS [facility] - [facility] Chief Complaint: detox from alcohol Allergies/Adverse Reactions: Allergies Allergy/AdvReac Type Severity Reaction Status Date / Time shellfish derived Allergy Intermediate Hives Verified 10/26/18 12:50 No Known Drug Allergies Allergy Verified 09/16/18 15:14 History of Present Illness: Mr. Gomez is a 43yo male with opioid use disorder (in methadone tx program), alcohol use disorder, cocaine use disorder, DM, HTN, and asthma who presents for detox from alcohol. He reports drinking 15-20 24oz beers daily with hx of blackouts but not seizures. His last use was yesterday afternoon. He began drinking at age 14. He was sober while incarcerated between [id number]. He also reports heroin use 8-10 bags/daily by inhalation in addition to being in methadone program 150mg daily. He reports missing 3 doses before getting a dose today. Last use of heroin was last night. He denies hx of OD. Pt carries Narcan. Pt also reports smoking crack cocaine $100 worth daily for the last 5-6 years with last use last night. Pt also smokes 1ppd since age 15. He is currently homeless and stays in the [facility]. His last detox here was in August. He reports being tired and is ready to do detox and rehab. Pt reports METZ, dizziness, nasal congestion, abdominal cramping, body aches, diarrhea, tremors, chills, sweating, numbness, and tingling. He denies n/v, chest pain, SOB, hallucinations. PMH: opioid use disorder (in methadone tx program), alcohol use disorder, cocaine use disorder, DM, HTN, and asthma surgical hx: gastric bypass 2002 meds: Spiriva, lisinopril, metformin, insulin allergies: shellfish family hx: mother-HTN, DM; father-HTN, DM, colon cancer - Ebola screening Have you traveled outside of the country in the last 21 days: No Have you had contact with anyone from an Ebola affected area: No - Review of Systems Constitutional: Chills, Diaphoresis, Malaise EENT: reports: Nose Congestion Respiratory: denies: Cough, Shortness of Breath Cardiac: denies: Chest Pain GI: reports: Diarrhea, Abdominal cramping. denies: Nausea, Vomiting : reports: No Symptoms Reported Musculoskeletal: reports: Back Pain, Muscle Pain Neuro: reports: Headache, Numbness, Tingling Endocrine: reports: No Symptoms Reported Hematology: reports: No Symptoms Reported Psychiatric: reports: Judgement Intact, Mood/Affect Appropiate, Orientated x3 Patient History - Patient Medical History Hx Anemia: No Hx Asthma: Yes (on albuterol inhaler) Hx Chronic Obstructive Pulmonary Disease (COPD): No Hx Cancer: No Hx Cardiac Disorders: No Hx Congestive Heart Failure: No Hx Hypertension: Yes (on med) Hx Hypercholesterolemia: No Hx Pacemaker: No HX Cerebrovascular Accident: No Hx Seizures: No Hx Dementia: No Hx Diabetes: Yes (on med) Hx Gastrointestinal Disorders: No Hx Liver Disease: No Hx Genitourinary Disorders: No Hx Sexually Transmitted Disorders: No Hx Renal Disease (ESRD): No Hx Thyroid Disease: No Hx Human Immunodeficiency Virus (HIV): No (Last Tested: 10/2017: NEGATIVE.) Hx Hepatitis C: No (Last Tested > 1 year ago: NEGATIVE.) Hx Depression: Yes Hx Suicide Attempt: No Hx Bipolar Disorder: Yes (No Current Medication, Unable To Recall Names of Past Medication.) Hx Schizophrenia: No - Patient Surgical History Past Surgical History: Yes Hx Neurologic Surgery: No Hx Cataract Extraction: No Hx Cardiac Surgery: No Hx Lung Surgery: No Hx Breast Surgery: No Hx Breast Biopsy: No Hx Abdominal Surgery: Yes (gastric bypass- 09/2003) Hx Appendectomy: No Hx Cholecystectomy: Yes (09/2003) Hx Genitourinary Surgery: No Hx Section: No Hx Orthopedic Surgery: No Other Surgical History: DENIES. Anesthesia Reaction: No - PPD History Results: cxr04/02/18 neg - Smoking Cessation Smoking history: Current every day smoker Have you smoked in the past 12 months: Yes Aproximately how many cigarettes per day: 20 Cigars Per Day: 0 Hx Chewing Tobacco Use: No Initiated information on smoking cessation: Yes 'Breaking Loose' booklet given: 10/26/18 - Substances abused Heroin Substance route: Inhalation Frequency: 1-2 times per week Amount used: 4bags Age of first use: 18 Date of last use: 10/25/18 Alcohol Substance route: Oral Frequency: Daily Amount used: 15 24 oz cans OF BEER/1 pint of hennesy Age of first use: 12 Date of last use: 10/25/18 Crack Substance route: Smoking Frequency: Daily Amount used: 8-10 bags Age of first use: 39 Date of last use: 10/25/18 Marijuana/Hashish Substance route: Smoking Frequency: Daily Amount used: 3-4 blunts Age of first use: 14 Date of last use: 09/15/18 Family Disease History - Family Disease History Family Disease History: Diabetes: Grandparent (Cardiac Disease.), Father (HTN; Cardiac Disease.), Mother (HTN; Cardiac Disease.), Heart Disease: Grandparent, Father, Mother Admission Physical Exam S - Vital Signs Vital Signs: Vital Signs - 24 hr 10/26/18 13:02 Temperature 97.8 F Pulse Rate 87 Respiratory 16 Rate Blood Pressure 98/63 - Physical General Appearance: Yes: No Apparent Distress, Obese, Other (somnolent) HEENTM: Yes: Hearing grossly Normal, Normocephalic, MARLON Respiratory: Yes: Lungs Clear, No Respiratory Distress Neck: Yes: Within Normal Limits Cardiology: Yes: Regular Rhythm, Regular Rate Abdominal: Yes: Normal Bowel Sounds, Non Tender, Protuberent Back: Yes: Within Normal Limits Musculoskeletal: Yes: Within Normal Limits Extremities: Yes: Normal Range of Motion Neurological: Yes: advanced analytics associate II-XII NML intact, Fully Oriented, Alert, Motor Strength 5/5, Normal Mood/Affect Integumentary: Yes: Within Normal Limits - Diagnostic (1) Opioid use disorder Current Visit: Yes Status: Acute (2) Alcohol dependence Current Visit: Yes Status: Acute Qualifiers: Substance use status: uncomplicated Qualified Code(s): F10.20 - Alcohol dependence, uncomplicated (3) Asthma Current Visit: Yes Status: Chronic Qualifiers: Asthma severity: mild Asthma persistence: intermittent Asthma complication type: uncomplicated Qualified Code(s): J45.20 - Mild intermittent asthma, uncomplicated (4) Cocaine dependence, uncomplicated Current Visit: Yes Status: Chronic (5) Hypertension Current Visit: Yes Status: Chronic Qualifiers: Hypertension type: essential hypertension Qualified Code(s): I10 - Essential (primary) hypertension (6) Methadone maintenance therapy patient Current Visit: Yes Status: Chronic (7) Nicotine dependence Current Visit: Yes Status: Chronic Qualifiers: Nicotine product type: cigarettes Substance use status: uncomplicated Qualified Code(s): F17.210 - Nicotine dependence, cigarettes, uncomplicated Cleared for Admission [facility] - Detox or Rehab S Level of Care: Medically Managed Breathalyzer - Breathalyzer Breathalyzer: 0 Urine Drug Screen - Test Device Lot number: [id number] Expiration date: 08/07/20 - Control Is test valid?: Yes - Results Drug screen NEGATIVE: No Urine drug screen results: THC-Marijuana, HALEIGH-Cocaine, MOP-Opiates, MTD- Methadone Inpatient Rehab Admission - Rehab Decision to Admit Inpatient rehab admission?: No
[2018-10-26] MEDS: chlordiazePOXIDE HCL 25 MG CAPSULE PO SCH ×2 (18:21→22:16)
[2018-10-26] MEDS: INSULIN SLIDING SCALE (NOVOLOG) 1 VIAL SQ SCH (18:23)
[2018-10-26] MEDS: NICOTINE 21 MG/24 HOURS TOPICAL PATCH TD SCH (18:23)
[2018-10-26] MEDS: DOCUSATE SODIUM 100 MG CAPSULE (FP) PO SCH (22:15)
[2018-10-26] MEDS: SENNOSIDES 8.6MG TABLET (FP) PO SCH (22:16)
[2018-10-26] MEDS: THIAMINE HCL 100 MG TABLET (FP) PO SCH (22:16)
[2018-10-27] MEDS ORDERED: METHADONE HCL 40 MG DISPERSABLE TABLET ONE (05:17)
[2018-10-27] MEDS ORDERED: METHADONE HCL 10 MG TABLET ONE (05:17)
[2018-10-27] MEDS ORDERED: METHADONE HCL 10 MG TABLET PO SCH (06:00)
[2018-10-27] MEDS: chlordiazePOXIDE HCL 25 MG CAPSULE PO SCH ×4 (07:05→22:39)
[2018-10-27] MEDS: METHADONE 120 MG, METHADONE 30 MG PO SCH (07:05)
[2018-10-27] MEDS: INSULIN SLIDING SCALE (NOVOLOG) 1 VIAL SQ SCH ×2 (08:28→18:05)
[2018-10-27] MEDS ORDERED: OXYMETAZOLINE 0.05% NASAL SOLUTION 15 ML BOTTLE NS PRN (09:25)
[2018-10-27] MEDS: PRENATAL VITAMINS W/ FOLIC ACID TABLET (FP) PO SCH (10:16)
[2018-10-27] MEDS: LISINOPRIL 10 MG TABLET (FP) PO SCH (10:16)
[2018-10-27] MEDS: AMMONIUM LACTATE 12% LOTION 225 GM BOTTLE TP SCH ×2 (10:17→22:39)
[2018-10-27] MEDS: NICOTINE 21 MG/24 HOURS TOPICAL PATCH TD SCH (10:17)
[2018-10-27] MEDS: COLLOIDAL OATMEAL 1 BAR EACH TP PRN (10:19)
[2018-10-27] MEDS: TIOTROPIUM BROMIDE 2.5 MCG (SPIRIVA) RESPIMAT INHALER IH SCH (10:20)
--- NOTE | 2018-10-27 10:48 | PN ---
S CIWA - CIWA Score Nausea/Vomitin Muscle Tremors: 2 Anxiety: 2 Agitation: 2 Paroxysmal Sweats: No Perspiration Orientation: 0-Oriented Tacttile Disturbances: 1-Very Mild Itch/Numbness Auditory Disturbances: 0-None Visual Disturbances: 0-None Headache: 2-Mild CIWA-Ar Total Score: 11 BHS Progress Note (SOAP) Subjective: alert,irritable,anxious,interrupted sleep,tremor Objective: 10/27/18 10:46 Vital Signs Temperature 98.4 F 10/27/18 09:25 Pulse Rate 100 H 10/27/18 09:25 Respiratory Rate 18 10/27/18 09:25 Blood Pressure 142/98 10/27/18 09:25 O2 Sat by Pulse Oximetry (%) Laboratory Last Values POC Glucometer 175 UNITS (80-120) 10/27/18 07:03 labs pending Assessment: 10/27/18 10:47 withdrawal symptom Plan: continue detox librium regime,bgm monitoring,
[2018-10-27 10:58] LABS: ALBUMIN 3.2 g/dl (3.4-5.0); BILIRUBIN,TOTAL 0.6 mg/dL (0.2-1); BLOOD UREA NITROGEN 11.8 mg/dL (7-18); CALCIUM 8.9 mg/dL (8.5-10.1); CREATININE 0.9 mg/dL (0.55-1.3); POTASSIUM 4.4 mmol/L (3.5-5.1); TOT PROT 6.7 g/dl (6.4-8.2)
[2018-10-27 11:03] LABS: HEMATOCRIT 39.8 % (35.4-49); HEMOGLOBIN 12.8 GM/dL (11.7-16.9); MCH 24.3 pg (25.7-33.7); MCHC 32.1 g/dl (32.0-35.9); MEAN CELL VOLUME 75.7 fl (80-96); MEAN PLT VOLUME 8.8 fl (7.5-11.1); PLATELET COUNT 184 K/MM3 (134-434); RBC 5.25 M/mm3 (4.00-5.60); RDW 17.8 % (11.9-15.9); WHITE BLOOD COUNT 6.7 K/mm3 (4.0-10.0)
[2018-10-27] MEDS: metFORMIN HCL 500 MG TABLET (FP) PO SCH ×2 (11:50→18:03)
[2018-10-27] MEDS: HYDROCORTISONE 2.5% TOPICAL CREAM 30 GM TUBE TP SCH (11:50)
--- NOTE | 2018-10-27 13:37 | EKG ---
Test Reason : Blood Pressure : / mmHG Vent. Rate : 079 BPM Atrial Rate : 079 BPM P-R Int : 146 ms QRS Dur : 082 ms QT Int : 382 ms P-R-T Axes : 073 028 019 degrees QTc Int : 438 ms NORMAL SINUS RHYTHM NORMAL ECG NO PREVIOUS ECGS AVAILABLE Confirmed by MD FIDE, REBA ([id number]) on 10/27/2018 1:36:45 PM Referred By: Confirmed By:REBA ELIZALDE MD
[2018-10-27] MEDS: SENNOSIDES 8.6MG TABLET (FP) PO SCH (22:38)
[2018-10-27] MEDS: MELATONIN 5 MG TABLETS PO PRN (22:38)
[2018-10-27] MEDS: THIAMINE HCL 100 MG TABLET (FP) PO SCH (22:38)
[2018-10-27] MEDS: DOCUSATE SODIUM 100 MG CAPSULE (FP) PO SCH (22:39)
[2018-10-28] MEDS ORDERED: METHADONE HCL 10 MG TABLET ONE (04:06)
[2018-10-28] MEDS ORDERED: METHADONE HCL 40 MG DISPERSABLE TABLET ONE (04:06)
[2018-10-28] MEDS: metFORMIN HCL 500 MG TABLET (FP) PO SCH ×2 (06:26→16:56)
[2018-10-28] MEDS: chlordiazePOXIDE HCL 25 MG CAPSULE PO SCH ×4 (06:26→22:44)
[2018-10-28] MEDS: METHADONE 120 MG, METHADONE 30 MG PO SCH (06:27)
[2018-10-28] MEDS: INSULIN SLIDING SCALE (NOVOLOG) 1 VIAL SQ SCH ×2 (06:31→16:56)
[2018-10-28] MEDS: TIOTROPIUM BROMIDE 2.5 MCG (SPIRIVA) RESPIMAT INHALER IH SCH (10:20)
[2018-10-28] MEDS: PRENATAL VITAMINS W/ FOLIC ACID TABLET (FP) PO SCH (10:35)
[2018-10-28] MEDS: AMMONIUM LACTATE 12% LOTION 225 GM BOTTLE TP SCH ×2 (10:35→22:59)
[2018-10-28] MEDS: NICOTINE 21 MG/24 HOURS TOPICAL PATCH TD SCH (10:35)
[2018-10-28] MEDS: HYDROCORTISONE 2.5% TOPICAL CREAM 30 GM TUBE TP SCH (10:35)
[2018-10-28] MEDS: LISINOPRIL 10 MG TABLET (FP) PO SCH (10:35)
[2018-10-28] MEDS ORDERED: LIDOCAINE VISCOUS 2% ORAL/TOP 20 ML UNIT-DOSE CUP MM PRN (14:20)
--- NOTE | 2018-10-28 15:24 | PN ---
S CIWA - CIWA Score Nausea/Vomitin-No Nausea/No Vomiting Muscle Tremors: None Anxiety: 3 Agitation: 1-Slight > Activity Paroxysmal Sweats: 2 Orientation: 0-Oriented Tacttile Disturbances: 2-Mild Itch/Numbness/Burn Auditory Disturbances: 0-None Visual Disturbances: 1-Very Mild Sensitivity Headache: 3-Moderate CIWA-Ar Total Score: 12 BHS Progress Note (SOAP) Subjective: Anxious, Body Aches, H/A. Objective: PATIENT A & O X 3. IN NO ACUTE DISTRESS. 10/28/18 15:22 Vital Signs Temperature 98.4 F 10/28/18 13:34 Pulse Rate 88 10/28/18 13:34 Respiratory Rate 20 10/28/18 13:34 Blood Pressure 116/79 10/28/18 13:34 O2 Sat by Pulse Oximetry (%) Laboratory Tests 10/26/18 10/27/18 10/27/18 18:18 07:03 07:50 WBC 6.7 RBC 5.25 Hgb 12.8 Hct 39.8 MCV 75.7 L MCH 24.3 L MCHC 32.1 RDW 17.8 H Plt Count 184 D MPV 8.8 Sodium Potassium Chloride Carbon Dioxide Anion Gap BUN Creatinine Est GFR (CKD-EPI)AfAm Est GFR (CKD-EPI)NonAf POC Glucometer 181 175 Random Glucose Calcium Total Bilirubin AST ALT Alkaline Phosphatase Total Protein Albumin RPR Titer 10/27/18 10/27/18 10/27/18 07:50 07:50 16:27 WBC RBC Hgb Hct MCV MCH MCHC RDW Plt Count MPV Sodium 139 Potassium 4.4 Chloride 101 Carbon Dioxide 32 Anion Gap 6 L BUN 11.8 Creatinine 0.9 Est GFR (CKD-EPI)AfAm 120.81 Est GFR (CKD-EPI)NonAf 104.24 POC Glucometer 146 Random Glucose 135 H Calcium 8.9 Total Bilirubin 0.6 AST 16 ALT 18 Alkaline Phosphatase 78 Total Protein 6.7 Albumin 3.2 L RPR Titer Nonreactive 10/28/18 06:28 WBC RBC Hgb Hct MCV MCH MCHC RDW Plt Count MPV Sodium Potassium Chloride Carbon Dioxide Anion Gap BUN Creatinine Est GFR (CKD-EPI)AfAm Est GFR (CKD-EPI)NonAf POC Glucometer 197 Random Glucose Calcium Total Bilirubin AST ALT Alkaline Phosphatase Total Protein Albumin RPR Titer LABS NOTED. RESULTS OF DETOX ADMISSION QFT /TB TEST PENDING. 10/28/18 15:23 Assessment: 10/28/18 15:23 WITHDRAWAL SYMPTOMS. Plan: CONTINUE DETOX.
[2018-10-28] MEDS: DOCUSATE SODIUM 100 MG CAPSULE (FP) PO SCH (22:44)
[2018-10-28] MEDS: MELATONIN 5 MG TABLETS PO PRN (22:45)
[2018-10-28] MEDS: THIAMINE HCL 100 MG TABLET (FP) PO SCH (22:45)
[2018-10-28] MEDS: SENNOSIDES 8.6MG TABLET (FP) PO SCH (22:45)
[2018-10-28] MEDS: METHYL SALICYLATE/MENTHOL OINT 30 GM TUBE TP SCH (22:59)
[2018-10-29] MEDS ORDERED: chlordiazePOXIDE HCL 10 MG CAPSULE PO PRN
[2018-10-29] MEDS ORDERED: METHADONE HCL 40 MG DISPERSABLE TABLET ONE (05:29)
[2018-10-29] MEDS ORDERED: METHADONE HCL 10 MG TABLET ONE (05:29)
[2018-10-29] MEDS: chlordiazePOXIDE HCL 10 MG CAPSULE PO SCH ×2 (06:36→10:17)
[2018-10-29] MEDS: METHADONE 120 MG, METHADONE 30 MG PO SCH (06:36)
[2018-10-29] MEDS: metFORMIN HCL 500 MG TABLET (FP) PO SCH (06:40)
[2018-10-29] MEDS ORDERED: INSULIN SLIDING SCALE (NOVOLOG) 1 VIAL SQ ONE (07:14)
[2018-10-29] MEDS: INSULIN SLIDING SCALE (NOVOLOG) 1 VIAL SQ SCH (07:43)
[2018-10-29] MEDS: COLLOIDAL OATMEAL 1 BAR EACH TP PRN (08:43)
[2018-10-29 09:27] VITALS: TEMP 98.1
[2018-10-29] MEDS: AMMONIUM LACTATE 12% LOTION 225 GM BOTTLE TP SCH (10:16)
[2018-10-29] MEDS: METHYL SALICYLATE/MENTHOL OINT 30 GM TUBE TP SCH (10:16)
[2018-10-29] MEDS: NICOTINE 21 MG/24 HOURS TOPICAL PATCH TD SCH (10:16)
[2018-10-29] MEDS: PRENATAL VITAMINS W/ FOLIC ACID TABLET (FP) PO SCH (10:16)
[2018-10-29] MEDS: LISINOPRIL 10 MG TABLET (FP) PO SCH (10:16)
[2018-10-29] MEDS: TIOTROPIUM BROMIDE 2.5 MCG (SPIRIVA) RESPIMAT INHALER IH SCH (10:17)
[2018-10-29] MEDS: HYDROCORTISONE 2.5% TOPICAL CREAM 30 GM TUBE TP SCH (10:17)
[2018-10-29 13:32] VITALS: BP 144/81; PULSE 89
--- NOTE | 2018-10-29 15:32 | DS ---
[facility] Detox Discharge Summary Admission Date: 10/26/18 Discharge Date: 10/29/18 - History Present History: Alcohol Dependence, Cocaine Dependence, Opioid Dependence Additional Comments: PATIENT DOES NOT WISH TO REMAIN TO COMPLETE DETOX REGIMEN. RISKS OF LEAVING DETOX UNIT AGAINST MEDICAL ADVICE AND PRIOR TO COMPLETION OF DETOX REGIMEN EXPLAINED TO PATIENT. PATIENT ADVISED TO GO IMMEDIATELY TO NEAREST ER SHOULD ANY INTOLERABLE WITHDRAWAL / DETOX SYMPTOMS DEVELOP AT ANY TIME. PATIENT VERBALIZED UNDERSTANDING OF ALL INFORMATION / RECOMMENDATIONS PRESENTED TO HIM PRIOR TO DEPARTURE FROM DETOX UNIT. PATIENT DECLINED OFFER OF MEDICATION PRESCRIPTION FOR HOME MEDICATION AT TIME OF LEAVING DETOX UNIT, NOTING THAT HE CURRENTLY HAS ADEQUATE SUPPLIES OF ALL PRESCRIBED HOME MEDICATIONS AT HOME. PATIENT LEFT DETOX UNIT IN STABLE MEDICAL CONDITION. Pertinent Past History: Asthma, HTN, DM, History Of Gastric Bypass Surgery, M.M.T.P., Nicotine Dependence. - Physical Exam Results Vital Signs: Vital Signs Temperature 98.1 F 10/29/18 13:31 Pulse Rate 89 10/29/18 13:31 Respiratory Rate 16 10/29/18 13:31 Blood Pressure 144/81 10/29/18 13:31 O2 Sat by Pulse Oximetry (%) Pertinent Admission Physical Exam Findings: WITHDRAWAL SYMPTOMS. Laboratory Tests 10/26/18 10/27/18 10/27/18 18:18 07:03 07:50 WBC 6.7 RBC 5.25 Hgb 12.8 Hct 39.8 MCV 75.7 L MCH 24.3 L MCHC 32.1 RDW 17.8 H Plt Count 184 D MPV 8.8 Sodium Potassium Chloride Carbon Dioxide Anion Gap BUN Creatinine Est GFR (CKD-EPI)AfAm Est GFR (CKD-EPI)NonAf POC Glucometer 181 175 Random Glucose Calcium Total Bilirubin AST ALT Alkaline Phosphatase Total Protein Albumin RPR Titer 10/27/18 10/27/18 10/27/18 07:50 07:50 16:27 WBC RBC Hgb Hct MCV MCH MCHC RDW Plt Count MPV Sodium 139 Potassium 4.4 Chloride 101 Carbon Dioxide 32 Anion Gap 6 L BUN 11.8 Creatinine 0.9 Est GFR (CKD-EPI)AfAm 120.81 Est GFR (CKD-EPI)NonAf 104.24 POC Glucometer 146 Random Glucose 135 H Calcium 8.9 Total Bilirubin 0.6 AST 16 ALT 18 Alkaline Phosphatase 78 Total Protein 6.7 Albumin 3.2 L RPR Titer Nonreactive 10/28/18 10/28/18 10/29/18 06:28 16:23 06:38 WBC RBC Hgb Hct MCV MCH MCHC RDW Plt Count MPV Sodium Potassium Chloride Carbon Dioxide Anion Gap BUN Creatinine Est GFR (CKD-EPI)AfAm Est GFR (CKD-EPI)NonAf POC Glucometer 197 150 211 Random Glucose Calcium Total Bilirubin AST ALT Alkaline Phosphatase Total Protein Albumin RPR Titer LABS NOTED. - Medication Discharge Medications: Ambulatory Orders Docusate Sodium [Colace] 200 mg PO HS 04/01/18 Sennosides [Senna] 3 tab PO HS 04/01/18 Lisinopril 10 mg PO DAILY #15 tablet 10/02/18 Metformin HCl [Glucophage] 1,000 mg PO BID #60 tablet 10/02/18 Tiotropium [place] [Spiriva] 1 inh IH DAILY #30 cap.w.dev 10/02/18 - Diagnosis (1) Opioid use disorder Status: Acute (2) Alcohol dependence with uncomplicated withdrawal Status: Acute (3) Asthma Status: Chronic Qualifiers: Asthma severity: mild Asthma persistence: intermittent Asthma complication type: uncomplicated Qualified Code(s): J45.20 - Mild intermittent asthma, uncomplicated (4) Cocaine dependence, uncomplicated Status: Chronic (5) Hypertension Status: Chronic Qualifiers: Hypertension type: essential hypertension Qualified Code(s): I10 - Essential (primary) hypertension (6) Methadone maintenance therapy patient Status: Chronic (7) Nicotine dependence Status: Chronic Qualifiers: Nicotine product type: cigarettes Substance use status: uncomplicated Qualified Code(s): F17.210 - Nicotine dependence, cigarettes, uncomplicated - AMA Did Patient Leave Against Medical Advice: Yes (PATIENT DID NOT WISH TO REMAIN TO COMPLETE DETOX REGIMEN.) S CIWA - CIWA Score Nausea/Vomitin-No Nausea/No Vomiting Muscle Tremors: 2 Anxiety: 4-Mod. Anxious/Guarded Agitation: 2 Paroxysmal Sweats: 2 Orientation: 0-Oriented Tacttile Disturbances: 1-Very Mild Itch/Numbness Auditory Disturbances: 0-None Visual Disturbances: 1-Very Mild Sensitivity Headache: 0-None Present CIWA-Ar Total Score: 12
[2018-10-30] MEDS ORDERED: chlordiazePOXIDE HCL 10 MG CAPSULE PO SCH (05:00)
[2018-10-31] MEDS ORDERED: chlordiazePOXIDE HCL 10 MG CAPSULE PO ONE (05:00)
== END 2018-10-29 14:30 | disposition left against medical advice (07) | DRG 770 ==
LOC: YASAS 10:47 → Y6N 17:13
PROVIDERS: ADMIT Surgery; ATTEND Surgery
PROC: HZ2ZZZZ Detoxification Services for Substance Abuse Treatment (ICD-10-PCS; principal; 2018-10-26)
DX: F10.230 Alcohol dependence with withdrawal, uncomplicated (principal); F11.20 Opioid dependence, uncomplicated; F14.20 Cocaine dependence, uncomplicated; F12.20 Cannabis dependence, uncomplicated; F17.210 Nicotine dependence, cigarettes, uncomplicated; I10 Essential (primary) hypertension; J45.20 Mild intermittent asthma, uncomplicated; E11.9 Type 2 diabetes mellitus without complications; E66.9 Obesity, unspecified; Z68.43 Body mass index [BMI] 50.0-59.9, adult; Z79.4 Long term (current) use of insulin; Z98.84 Bariatric surgery status; Z91.013 Allergy to seafood
CPT/HCPCS: 36415; 80053; 82962; 85027; 86480; 86593; 93005; 93010

== ENCOUNTER 2019-04-14 09:47 | Inpatient (IN) | payer OTHER ==
[2019-04-14 10:23] VITALS: BMI 56.9
--- NOTE | 2019-04-14 10:45 | HP ---
COWS - Scale Resting Pulse: 1= MT 81-100 Sweatin= Chills/Flushing Restless Observation: 1= Difficult to Sit Still Pupil Size: 0= Normal to Room Light Bone or Joint Aches: 1= Mild Discomfort Runny Nose/ Eye Tearin= None GI Upset > 30mins: 0= None Tremor Observation: 0= None Yawning Observation: 0= None Anxiety or Irritability: 1=Feels Anxious/Irritable Goose Flesh Skin: 0=Smooth Skin COWS Score: 5 CIWA Score Nausea/Vomitin-No Nausea/No Vomiting Muscle Tremors: 2 Anxiety: 3 Agitation: 2 Paroxysmal Sweats: 4-Forehead w/Sweat Beads Orientation: 0-Oriented Tacttile Disturbances: 0-None Auditory Disturbances: 0-None Visual Disturbances: 0-None Headache: 0-None Present CIWA-Ar Total Score: 11 - Admission Criteria OASAS Guidelines: Admission for Medically Managed Detox: Requires at least one of the followin. CIWA greater than 12 2. Seizures within the past 24 hours 3. Delirium tremens within the past 24 hours 4. Hallucinations within the past 24 hours 5. Acute intervention needed for co occurring medical disorder 6. Acute intervention needed for co occurring psychiatric disorder 7. Severe withdrawal that cannot be handled at a lower level of care (continued vomiting, continued diarrhea, abnormal vital signs) requiring intravenous medication and/or fluids 8. Admitting History and Physical - Admission Chief Complaint: Mr. Gomez presents requesting admission to detox for alcohol and heroin use disorder. History of Present Illness: Mr. Gomez presents requesting admission to detox for alcohol and heroin use disorder. Heis a 43 yo gentleman with a PMH of HTN, DM, Asthma and gastric bypass surgery. He was last here in October 2018 and left AMA. Psych: depression on Wellbutrin, Vistaril and Ambien Substance use history Alcohol, first use age 14y, last use last night at 8pm, quantity: 15 beers daily. No history of seizures. Had a black out in 2019. Heroin: first use age 18y, last use last night 8pm, quantity: 5-6 bags dialy. No ODs. In a methadone program, states he is taking 90 mg daily, has missed past 2 days. Crack/cocaine: first use age 39y, last use last nig, quantity: 10-12 bags per day Nicotine: first use age 12 y, last use this am, 5 cigs per day Marijuana: first use age 14 y, last use 2 days ago, 2 blunts every week Denies BZD use - Smoking History Smoking history: Current every day smoker Have you smoked in the past 12 months: Yes Aproximately how many cigarettes per day: 5 - Alcohol/Substance Use Hx Alcohol Use: Yes Admission ROS S - HPI Allergies/Adverse Reactions: Allergies Allergy/AdvReac Type Severity Reaction Status Date / Time shellfish derived Allergy Intermediate Hives Verified 04/14/19 10:15 No Known Drug Allergies Allergy Verified 04/14/19 10:15 Exam Limitations: No Limitations - Ebola screening Have you traveled outside of the country in the last 21 days: No Have you had contact with anyone from an Ebola affected area: No Have you been sick,other than usual withdrawal symptoms: No Do you have a fever: No - Review of Systems Constitutional: No Symptoms Reported EENT: reports: No Symptoms Reported Respiratory: reports: No Symptoms reported Cardiac: reports: No Symptoms Reported GI: reports: No Symptoms Reported : reports: No Symptoms Reported Musculoskeletal: reports: No Symptoms Reported Integumentary: reports: No Symptoms Reported Neuro: reports: No Symptoms reported Endocrine: reports: No Symptoms Reported, Other (checks home glucose, highest 165 FBS) Hematology: reports: No Symptoms Reported Psychiatric: reports: Depressed (no SI/HI) Patient History - Patient Medical History Hx Anemia: No Hx Asthma: Yes (on albuterol inhaler) Hx Chronic Obstructive Pulmonary Disease (COPD): No Hx Cancer: No Hx Cardiac Disorders: No Hx Congestive Heart Failure: No Hx Hypertension: Yes (on Lisinopril) Hx Hypercholesterolemia: No Hx Pacemaker: No HX Cerebrovascular Accident: No Hx Seizures: No Hx Dementia: No Hx Diabetes: Yes (on Metformin) Hx Gastrointestinal Disorders: No Hx Liver Disease: No Hx Genitourinary Disorders: No Hx Sexually Transmitted Disorders: No Hx Renal Disease (ESRD): No Hx Thyroid Disease: No Hx Human Immunodeficiency Virus (HIV): No (Last Tested: 10/2017: NEGATIVE.) Hx Hepatitis C: No (Last Tested > 1 year ago: NEGATIVE.) Hx Depression: Yes (on Wellbutrin) Hx Suicide Attempt: No Hx Bipolar Disorder: Yes (No Current Medication, Unable To Recall Names of Past Medication.) Hx Schizophrenia: No - Patient Surgical History Past Surgical History: Yes Hx Neurologic Surgery: No Hx Cataract Extraction: No Hx Cardiac Surgery: No Hx Lung Surgery: No Hx Breast Surgery: No Hx Breast Biopsy: No Hx Abdominal Surgery: Yes (gastric bypass, cholecystectomy- 09/2003) Hx Appendectomy: No Hx Cholecystectomy: Yes (09/2003) Hx Genitourinary Surgery: No Hx Section: No Hx Orthopedic Surgery: No Other Surgical History: DENIES. Anesthesia Reaction: No - PPD History Previous Implant?: Yes Documented Results: Positive w/proof Results: cxr04/02/18 neg PPD to be Administered?: No - Smoking Cessation Smoking history: Current every day smoker Have you smoked in the past 12 months: Yes Aproximately how many cigarettes per day: 5 Cigars Per Day: 0 Hx Chewing Tobacco Use: No Initiated information on smoking cessation: Yes 'Breaking Loose' booklet given: 04/14/19 - Substances abused Heroin Substance route: Inhalation Frequency: Daily Amount used: 5-6 bags Age of first use: 14 Date of last use: 04/13/19 Crack Substance route: Smoking Frequency: Daily Amount used: 10-12 bags Age of first use: 39 Date of last use: 04/13/19 Alcohol Substance route: Oral Frequency: Daily Amount used: beer 10-15 24 oz Age of first use: 12 Date of last use: 04/13/19 Marijuana/Hashish Substance route: Smoking Frequency: 1-2 times per week Amount used: 2 blunts Age of first use: 14 Date of last use: 04/12/19 Admission Physical Exam S - Vital Signs Vital Signs: Vital Signs - 24 hr 04/14/19 10:18 Temperature 97.7 F Pulse Rate 86 Respiratory 20 Rate Blood Pressure 156/88 - Physical General Appearance: Yes: No Apparent Distress, Obese HEENTM: Yes: Within Normal Limits Respiratory: Yes: Within Normal Limits Neck: Yes: Within Normal Limits Breast: Yes: Breast Exam Deferred Cardiology: Yes: Regular Rate, S1, S2 Abdominal: Yes: Within Normal Limits Genitourinary: Yes: Other (deferred) Back: Yes: Within Normal Limits Musculoskeletal: Yes: Within Normal Limits Extremities: Yes: Within Normal Limits Neurological: Yes: Fully Oriented, Alert, Normal Response Integumentary: Yes: Within Normal Limits - Diagnostic (1) Alcohol dependence with uncomplicated withdrawal Current Visit: Yes Status: Acute (2) Opioid use disorder Current Visit: Yes Status: Acute (3) Cannabis dependence, uncomplicated Current Visit: Yes Status: Chronic (4) Morbid obesity with BMI of 50.0-59.9, adult Current Visit: No Status: Chronic (5) Nicotine dependence Current Visit: Yes Status: Acute Qualifiers: Nicotine product type: cigarettes Substance use status: uncomplicated Qualified Code(s): F17.210 - Nicotine dependence, cigarettes, uncomplicated (6) Type II diabetes mellitus Current Visit: Yes Status: Acute Qualifiers: Diabetes mellitus termite treater helper insulin use: without termite treater helper use Diabetes mellitus complication status: with unspecified complications Cleared for Admission S - Detox or Rehab [facility] Level of Care: Medically Managed Breathalyzer - Breathalyzer Breathalyzer: 0 Urine Drug Screen - Test Device Lot number: [id number] Expiration date: 02/06/21 - Control Is test valid?: Yes - Results Drug screen NEGATIVE: No Urine drug screen results: HALEIGH-Cocaine, MOP-Opiates, MTD-Methadone Inpatient Rehab Admission - Rehab Decision to Admit Inpatient rehab admission?: No
[2019-04-14] MEDS ORDERED: IBUPROFEN 400 MG TABLET (FP) PO PRN (10:53)
[2019-04-14] MEDS ORDERED: hydrOXYzine PAMOATE 25 MG CAPSULE (FP) PO PRN (10:53)
[2019-04-14] MEDS ORDERED: MAGNESIUM HYDROX 2400MG/30ML ORAL SUSPENSION 30 ML CUP PO PRN (10:53)
[2019-04-14] MEDS ORDERED: MAG HYDROX/AL HYDROX/SIMETH 30 ML UNIT-DOSE CUP PO PRN (10:53)
[2019-04-14] MEDS ORDERED: BISMUTH SUBSALICYLATE 262 MG/15 ML BTL PO PRN (10:53)
[2019-04-14] MEDS ORDERED: ACETAMINOPHEN 325 MG TABLET (FP) PO PRN ×2 (10:53)
[2019-04-14] MEDS ORDERED: MENTHOL/PHENOL 1 EACH UD MM PRN (10:53)
[2019-04-14] MEDS ORDERED: MAGNESIUM CITRATE 300 ML BOTTLE PO PRN (10:53)
[2019-04-14] MEDS ORDERED: PATIENT'S OWN MEDICATION (NON-FORMULARY) (Tiotropium Bromide [Spiriva] 1 INH) IH SCH (11:00)
[2019-04-14] MEDS: chlordiazePOXIDE HCL 25 MG CAPSULE PO PRN ×2 (11:59→17:43)
[2019-04-14] MEDS: metFORMIN HCL 500 MG TABLET (FP) PO SCH ×2 (12:00→17:43)
[2019-04-14] MEDS: LISINOPRIL 10 MG TABLET (FP) PO SCH (12:00)
--- NOTE | 2019-04-14 12:25 | PN ---
S Progress Note Note: received pharmacist called that patient does not have his own [facility]
[2019-04-14] MEDS: TIOTROPIUM BROMIDE 2.5 MCG (SPIRIVA) RESPIMAT INHALER IH SCH (13:33)
[2019-04-14] MEDS ORDERED: METHADONE HCL 10 MG TABLET PO SCH (13:37)
[2019-04-14] MEDS ORDERED: METHADONE HCL 10 MG TABLET ONE (14:04)
[2019-04-14] MEDS ORDERED: METHADONE HCL 40 MG DISPERSABLE TABLET ONE (14:05)
[2019-04-14] MEDS: METHADONE 80 MG, METHADONE 10 MG PO SCH (14:14)
[2019-04-14] MEDS: METHOCARBAMOL 500 MG TABLET PO PRN (14:15)
[2019-04-14 14:18] LABS: HEMATOCRIT 37.3 % (35.4-49); MCH 24.6 pg (25.7-33.7); MCHC 32.2 g/dl (32.0-35.9); MEAN CELL VOLUME 76.3 fl (80-96); PLATELET COUNT 203 K/MM3 (134-434); RBC 4.88 M/mm3 (4.00-5.60); RDW 15.6 % (11.9-15.9); WHITE BLOOD COUNT 7.3 K/mm3 (4.0-10.0)
[2019-04-14 14:37] LABS: ALBUMIN 3.2 g/dl (3.4-5.0); BILIRUBIN,TOTAL 0.4 mg/dL (0.2-1); BLOOD UREA NITROGEN 10.8 mg/dL (7-18); CALCIUM 8.6 mg/dL (8.5-10.1); CREATININE 1.1 mg/dL (0.55-1.3); POTASSIUM 3.7 mmol/L (3.5-5.1); TOT PROT 6.5 g/dl (6.4-8.2)
[2019-04-14] MEDS: DOCUSATE SODIUM 100 MG CAPSULE (FP) PO SCH (22:30)
[2019-04-14] MEDS: chlordiazePOXIDE HCL 25 MG CAPSULE PO SCH (22:30)
[2019-04-14] MEDS: THIAMINE HCL 100 MG TABLET (FP) PO SCH (22:30)
[2019-04-14] MEDS: SENNOSIDES 8.6MG TABLET (FP) PO SCH (22:30)
[2019-04-14] MEDS: MELATONIN 5 MG TABLETS PO PRN (22:31)
[2019-04-15] MEDS ORDERED: METHADONE HCL 10 MG TABLET ONE (05:22)
[2019-04-15] MEDS ORDERED: METHADONE HCL 40 MG DISPERSABLE TABLET ONE (05:23)
[2019-04-15] MEDS ORDERED: METHADONE HCL 10 MG TABLET PO SCH (06:00)
[2019-04-15] MEDS ORDERED: METHADONE HCL 5 MG TABLET (FOR DETOX USE ONLY) PO SCH (06:00)
[2019-04-15] MEDS: METHADONE 80 MG, METHADONE 10 MG PO SCH (06:32)
[2019-04-15] MEDS: chlordiazePOXIDE HCL 25 MG CAPSULE PO SCH ×4 (06:32→22:45)
[2019-04-15] MEDS: metFORMIN HCL 500 MG TABLET (FP) PO SCH ×2 (06:50→18:06)
--- NOTE | 2019-04-15 09:35 | PN ---
[facility] CIWA - CIWA Score Nausea/Vomitin-No Nausea/No Vomiting Muscle Tremors: 3 Anxiety: 4-Mod. Anxious/Guarded Agitation: 1-Slight > Activity Paroxysmal Sweats: 2 Orientation: 0-Oriented Tacttile Disturbances: 1-Very Mild Itch/Numbness Auditory Disturbances: 0-None Visual Disturbances: 1-Very Mild Sensitivity Headache: 0-None Present CIWA-Ar Total Score: 12 S Progress Note (SOAP) Subjective: 43 years old male admitted on 04/14/19 for alcohol withdrawal sx management treating with librium detox regiment feeling ok today less tremor but anxious about relapse received methadone 90mg today encourage to attend groups and meetings of behavior and psychosocial therapies while in detox Objective: 04/15/19 09:37 Vital Signs Temperature 96.9 F L 04/14/19 20:58 Pulse Rate 78 04/14/19 20:58 Respiratory Rate 18 04/15/19 03:43 Blood Pressure 113/66 04/14/19 20:58 O2 Sat by Pulse Oximetry (%) Laboratory Last Values WBC 7.3 K/mm3 (4.0-10.0) 04/14/19 10:50 RBC 4.88 M/mm3 (4.00-5.60) 04/14/19 10:50 Hgb 12.0 GM/dL (11.7-16.9) 04/14/19 10:50 Hct 37.3 % (35.4-49) 04/14/19 10:50 MCV 76.3 fl (80-96) L 04/14/19 10:50 MCH 24.6 pg (25.7-33.7) L 04/14/19 10:50 MCHC 32.2 g/dl (32.0-35.9) 04/14/19 10:50 RDW 15.6 % (11.9-15.9) D 04/14/19 10:50 Plt Count 203 K/MM3 (134-434) 04/14/19 10:50 MPV 9.0 fl (7.5-11.1) 04/14/19 10:50 Sodium 139 mmol/L (136-145) 04/14/19 10:50 Potassium 3.7 mmol/L (3.5-5.1) 04/14/19 10:50 Chloride 104 mmol/L (98-107) 04/14/19 10:50 Carbon Dioxide 27 mmol/L (21-32) 04/14/19 10:50 Anion Gap 8 MMOL/L (8-16) 04/14/19 10:50 BUN 10.8 mg/dL (7-18) 04/14/19 10:50 Creatinine 1.1 mg/dL (0.55-1.3) 04/14/19 10:50 Est GFR (CKD-EPI)AfAm 94.79 04/14/19 10:50 Est GFR (CKD-EPI)NonAf 81.78 04/14/19 10:50 POC Glucometer 133 UNITS (80-120) 04/15/19 06:35 Random Glucose 265 mg/dL (74-106) H 04/14/19 10:50 Calcium 8.6 mg/dL (8.5-10.1) 04/14/19 10:50 Total Bilirubin 0.4 mg/dL (0.2-1) 04/14/19 10:50 AST 12 U/L (15-37) L 04/14/19 10:50 ALT 22 U/L (13-61) 04/14/19 10:50 Alkaline Phosphatase 79 U/L (45-117) 04/14/19 10:50 Total Protein 6.5 g/dl (6.4-8.2) 04/14/19 10:50 Albumin 3.2 g/dl (3.4-5.0) L 04/14/19 10:50 RPR Titer Nonreactive (NONREACTIVE) 04/14/19 10:50 lab noted long history of diabetes Assessment: 04/15/19 09:43 alcohol withdrawal Plan: librium regiment
[2019-04-15] MEDS: PRENATAL VITAMINS W/ FOLIC ACID TABLET (FP) PO SCH (10:35)
[2019-04-15] MEDS: TIOTROPIUM BROMIDE 2.5 MCG (SPIRIVA) RESPIMAT INHALER IH SCH (10:35)
[2019-04-15] MEDS: LISINOPRIL 10 MG TABLET (FP) PO SCH (10:35)
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
[2019-04-15] MEDS ORDERED: SUVOREXANT 10 MG TABLET PO PRN (22:00)
[2019-04-15] MEDS: DOCUSATE SODIUM 100 MG CAPSULE (FP) PO SCH (22:46)
[2019-04-15] MEDS: SENNOSIDES 8.6MG TABLET (FP) PO SCH (22:46)
[2019-04-15] MEDS: THIAMINE HCL 100 MG TABLET (FP) PO SCH (22:47)
[2019-04-15] MEDS: METHOCARBAMOL 500 MG TABLET PO PRN (22:47)
[2019-04-16] MEDS ORDERED: METHADONE HCL 10 MG TABLET ONE (04:27)
[2019-04-16] MEDS ORDERED: METHADONE HCL 40 MG DISPERSABLE TABLET ONE (04:28)
[2019-04-16] MEDS: METHADONE 80 MG, METHADONE 10 MG PO SCH (05:17)
[2019-04-16] MEDS: chlordiazePOXIDE HCL 25 MG CAPSULE PO SCH ×4 (05:18→22:18)
[2019-04-16] MEDS: metFORMIN HCL 500 MG TABLET (FP) PO SCH ×2 (06:36→17:53)
[2019-04-16] MEDS: PRENATAL VITAMINS W/ FOLIC ACID TABLET (FP) PO SCH (10:17)
[2019-04-16] MEDS: TIOTROPIUM BROMIDE 2.5 MCG (SPIRIVA) RESPIMAT INHALER IH SCH (10:17)
[2019-04-16] MEDS: LISINOPRIL 10 MG TABLET (FP) PO SCH (10:17)
--- NOTE | 2019-04-16 15:59 | PN ---
S CIWA - CIWA Score Nausea/Vomitin-Mild Nausea/No Vomiting Muscle Tremors: None Anxiety: 1-Mildly Anxious Agitation: 0-Normal Activity Paroxysmal Sweats: 3 Orientation: 0-Oriented Tacttile Disturbances: 0-None Auditory Disturbances: 0-None Visual Disturbances: 0-None Headache: 3-Moderate CIWA-Ar Total Score: 8 BHS Progress Note (SOAP) Subjective: Complaints of frontal headache, nausea, nasal congestion Objective: 04/16/19 15:56 Laboratory Tests 04/14/19 04/14/19 04/14/19 09:00 10:40 10:50 WBC 7.3 RBC 4.88 Hgb 12.0 Hct 37.3 MCV 76.3 L MCH 24.6 L MCHC 32.2 RDW 15.6 D Plt Count 203 MPV 9.0 Sodium Potassium Chloride Carbon Dioxide Anion Gap BUN Creatinine Est GFR (CKD-EPI)AfAm Est GFR (CKD-EPI)NonAf POC Glucometer 260 Random Glucose Calcium Total Bilirubin AST ALT Alkaline Phosphatase Total Protein Albumin RPR Titer HIV 1&2 Ag/Ab, 4th Gen Non reactive 04/14/19 04/14/19 04/14/19 10:50 10:50 16:57 WBC RBC Hgb Hct MCV MCH MCHC RDW Plt Count MPV Sodium 139 Potassium 3.7 Chloride 104 Carbon Dioxide 27 Anion Gap 8 BUN 10.8 Creatinine 1.1 Est GFR (CKD-EPI)AfAm 94.79 Est GFR (CKD-EPI)NonAf 81.78 POC Glucometer 170 Random Glucose 265 H Calcium 8.6 Total Bilirubin 0.4 AST 12 L ALT 22 Alkaline Phosphatase 79 Total Protein 6.5 Albumin 3.2 L RPR Titer Nonreactive HIV 1&2 Ag/Ab, 4th Gen 04/15/19 04/15/19 04/16/19 06:35 16:25 05:16 WBC RBC Hgb Hct MCV MCH MCHC RDW Plt Count MPV Sodium Potassium Chloride Carbon Dioxide Anion Gap BUN Creatinine Est GFR (CKD-EPI)AfAm Est GFR (CKD-EPI)NonAf POC Glucometer 133 204 133 Random Glucose Calcium Total Bilirubin AST ALT Alkaline Phosphatase Total Protein Albumin RPR Titer HIV 1&2 Ag/Ab, 4th Gen Vital Signs (72 hours) 04/14/19 04/14/19 04/14/19 10:18 11:43 12:53 Temperature 97.7 F 97.4 F L 97.1 F L Pulse Rate 86 84 89 Respiratory 20 18 16 Rate Blood Pressure 156/88 140/77 117/70 04/14/19 04/14/19 04/15/19 17:06 20:58 00:34 Temperature 98.0 F 96.9 F L Pulse Rate 80 78 Respiratory 16 16 18 Rate Blood Pressure 125/74 113/66 04/15/19 04/15/19 04/15/19 03:43 08:52 12:58 Temperature 97.4 F L 97.8 F Pulse Rate 95 H 80 Respiratory 18 18 18 Rate Blood Pressure 129/76 123/66 04/15/19 04/15/19 04/16/19 17:01 21:06 00:30 Temperature 97.9 F 97 F L Pulse Rate 99 H 90 Respiratory 18 18 18 Rate Blood Pressure 138/76 108/70 04/16/19 04/16/19 04/16/19 03:30 06:30 09:33 Temperature 97.6 F 97.5 F L Pulse Rate 79 92 H Respiratory 20 20 20 Rate Blood Pressure 159/86 135/83 04/16/19 12:55 Temperature 98.2 F Pulse Rate 80 Respiratory 18 Rate Blood Pressure 111/68 PE Gnl: WD, obese, in bed MS: asleep, easily aroused CN; pupils 3-4 mm, reactive Motor: moves all limbs symetrically Gait: defered, pt was out of bed when prior round was made Assessment: 04/16/19 15:58 1. alcohol use disorder 2. opioid use disorder on methadone maintenance Plan: 1. continue alcohol withdrawal protocol 2. continue methadone maintenance
[2019-04-16] MEDS: DOCUSATE SODIUM 100 MG CAPSULE (FP) PO SCH (22:17)
[2019-04-16] MEDS: THIAMINE HCL 100 MG TABLET (FP) PO SCH (22:17)
[2019-04-16] MEDS: MELATONIN 5 MG TABLETS PO PRN (22:18)
[2019-04-16] MEDS: SENNOSIDES 8.6MG TABLET (FP) PO SCH (22:53)
[2019-04-17] MEDS ORDERED: chlordiazePOXIDE HCL 10 MG CAPSULE PO PRN
[2019-04-17] MEDS ORDERED: METHADONE HCL 40 MG DISPERSABLE TABLET ONE (03:15)
[2019-04-17] MEDS ORDERED: METHADONE HCL 10 MG TABLET ONE (03:15)
[2019-04-17] MEDS: metFORMIN HCL 500 MG TABLET (FP) PO SCH ×2 (06:09→17:21)
[2019-04-17] MEDS: METHADONE 80 MG, METHADONE 10 MG PO SCH (06:09)
[2019-04-17] MEDS: chlordiazePOXIDE HCL 10 MG CAPSULE PO SCH ×4 (06:09→22:00)
[2019-04-17] MEDS: PRENATAL VITAMINS W/ FOLIC ACID TABLET (FP) PO SCH (10:26)
[2019-04-17] MEDS: LISINOPRIL 10 MG TABLET (FP) PO SCH (10:26)
[2019-04-17] MEDS: TIOTROPIUM BROMIDE 2.5 MCG (SPIRIVA) RESPIMAT INHALER IH SCH (10:26)
--- NOTE | 2019-04-17 10:52 | PN ---
[facility] CIWA - CIWA Score Nausea/Vomitin-No Nausea/No Vomiting Muscle Tremors: None Anxiety: 3 Agitation: 0-Normal Activity Paroxysmal Sweats: 3 Orientation: 0-Oriented Tacttile Disturbances: 0-None Auditory Disturbances: 0-None Visual Disturbances: 0-None Headache: 1-Very Mild CIWA-Ar Total Score: 7 BHS Progress Note (SOAP) Subjective: c/o sweats, headache, and anxiety. Objective: 04/17/19 10:52 Vital Signs 04/17/19 04/17/19 04/17/19 03:30 06:36 08:51 Temperature 97.9 F 97.0 F L Pulse Rate 76 92 H Respiratory 16 18 20 Rate Blood Pressure 150/83 127/72 Laboratory Last Values WBC 7.3 K/mm3 (4.0-10.0) 04/14/19 10:50 RBC 4.88 M/mm3 (4.00-5.60) 04/14/19 10:50 Hgb 12.0 GM/dL (11.7-16.9) 04/14/19 10:50 Hct 37.3 % (35.4-49) 04/14/19 10:50 MCV 76.3 fl (80-96) L 04/14/19 10:50 MCH 24.6 pg (25.7-33.7) L 04/14/19 10:50 MCHC 32.2 g/dl (32.0-35.9) 04/14/19 10:50 RDW 15.6 % (11.9-15.9) D 04/14/19 10:50 Plt Count 203 K/MM3 (134-434) 04/14/19 10:50 MPV 9.0 fl (7.5-11.1) 04/14/19 10:50 Sodium 139 mmol/L (136-145) 04/14/19 10:50 Potassium 3.7 mmol/L (3.5-5.1) 04/14/19 10:50 Chloride 104 mmol/L (98-107) 04/14/19 10:50 Carbon Dioxide 27 mmol/L (21-32) 04/14/19 10:50 Anion Gap 8 MMOL/L (8-16) 04/14/19 10:50 BUN 10.8 mg/dL (7-18) 04/14/19 10:50 Creatinine 1.1 mg/dL (0.55-1.3) 04/14/19 10:50 Est GFR (CKD-EPI)AfAm 94.79 04/14/19 10:50 Est GFR (CKD-EPI)NonAf 81.78 04/14/19 10:50 POC Glucometer 137 UNITS (80-120) 04/17/19 06:11 Random Glucose 265 mg/dL (74-106) H 04/14/19 10:50 Calcium 8.6 mg/dL (8.5-10.1) 04/14/19 10:50 Total Bilirubin 0.4 mg/dL (0.2-1) 04/14/19 10:50 AST 12 U/L (15-37) L 04/14/19 10:50 ALT 22 U/L (13-61) 04/14/19 10:50 Alkaline Phosphatase 79 U/L (45-117) 04/14/19 10:50 Total Protein 6.5 g/dl (6.4-8.2) 04/14/19 10:50 Albumin 3.2 g/dl (3.4-5.0) L 04/14/19 10:50 RPR Titer Nonreactive (NONREACTIVE) 04/14/19 10:50 HIV 1&2 Ag/Ab, 4th Gen Non reactive (Non Reactive) 04/14/19 09:00 Labs noted. Assessment: 04/17/19 10:52 AOX 3, in no respiratory distress. Full ROM, ambulating in the unit. Withdrawal symptoms. Plan: continue detox.
[2019-04-17] MEDS: DOCUSATE SODIUM 100 MG CAPSULE (FP) PO SCH (21:55)
[2019-04-17] MEDS: THIAMINE HCL 100 MG TABLET (FP) PO SCH (21:56)
[2019-04-17] MEDS: SENNOSIDES 8.6MG TABLET (FP) PO SCH (21:56)
[2019-04-18] MEDS ORDERED: METHADONE HCL 10 MG TABLET ONE (03:22)
[2019-04-18] MEDS ORDERED: METHADONE HCL 40 MG DISPERSABLE TABLET ONE (03:22)
[2019-04-18] MEDS: chlordiazePOXIDE HCL 10 MG CAPSULE PO SCH ×2 (05:41→16:59)
[2019-04-18] MEDS: METHADONE 80 MG, METHADONE 10 MG PO SCH (05:41)
[2019-04-18] MEDS: metFORMIN HCL 500 MG TABLET (FP) PO SCH ×2 (06:05→16:59)
[2019-04-18] MEDS: LISINOPRIL 10 MG TABLET (FP) PO SCH (10:28)
[2019-04-18] MEDS: PRENATAL VITAMINS W/ FOLIC ACID TABLET (FP) PO SCH (10:28)
[2019-04-18] MEDS: TIOTROPIUM BROMIDE 2.5 MCG (SPIRIVA) RESPIMAT INHALER IH SCH (10:29)
--- NOTE | 2019-04-18 14:35 | PN ---
S CIWA - CIWA Score Nausea/Vomitin-No Nausea/No Vomiting Muscle Tremors: 1-None Visible, but [place] Anxiety: 1-Mildly Anxious Agitation: 0-Normal Activity Paroxysmal Sweats: 1-Minimal Palms Moist Orientation: 0-Oriented Tacttile Disturbances: 0-None Auditory Disturbances: 0-None Visual Disturbances: 0-None Headache: 1-Very Mild CIWA-Ar Total Score: 4 BHS Progress Note (SOAP) Subjective: 43 years old male admitted on for alcohol withdrawal sx management treating wtih librium detox regiment feeling better today less tremor sleep better at night Objective: 04/18/19 14:33 Vital Signs Temperature 97 F L 04/18/19 12:58 Pulse Rate 81 04/18/19 12:58 Respiratory Rate 18 04/18/19 12:58 Blood Pressure 110/58 L 04/18/19 12:58 O2 Sat by Pulse Oximetry (%) Laboratory Last Values WBC 7.3 K/mm3 (4.0-10.0) 04/14/19 10:50 RBC 4.88 M/mm3 (4.00-5.60) 04/14/19 10:50 Hgb 12.0 GM/dL (11.7-16.9) 04/14/19 10:50 Hct 37.3 % (35.4-49) 04/14/19 10:50 MCV 76.3 fl (80-96) L 04/14/19 10:50 MCH 24.6 pg (25.7-33.7) L 04/14/19 10:50 MCHC 32.2 g/dl (32.0-35.9) 04/14/19 10:50 RDW 15.6 % (11.9-15.9) D 04/14/19 10:50 Plt Count 203 K/MM3 (134-434) 04/14/19 10:50 MPV 9.0 fl (7.5-11.1) 04/14/19 10:50 Sodium 139 mmol/L (136-145) 04/14/19 10:50 Potassium 3.7 mmol/L (3.5-5.1) 04/14/19 10:50 Chloride 104 mmol/L (98-107) 04/14/19 10:50 Carbon Dioxide 27 mmol/L (21-32) 04/14/19 10:50 Anion Gap 8 MMOL/L (8-16) 04/14/19 10:50 BUN 10.8 mg/dL (7-18) 04/14/19 10:50 Creatinine 1.1 mg/dL (0.55-1.3) 04/14/19 10:50 Est GFR (CKD-EPI)AfAm 94.79 04/14/19 10:50 Est GFR (CKD-EPI)NonAf 81.78 04/14/19 10:50 POC Glucometer 203 UNITS (80-120) 04/18/19 05:44 Random Glucose 265 mg/dL (74-106) H 04/14/19 10:50 Calcium 8.6 mg/dL (8.5-10.1) 04/14/19 10:50 Total Bilirubin 0.4 mg/dL (0.2-1) 04/14/19 10:50 AST 12 U/L (15-37) L 04/14/19 10:50 ALT 22 U/L (13-61) 04/14/19 10:50 Alkaline Phosphatase 79 U/L (45-117) 04/14/19 10:50 Total Protein 6.5 g/dl (6.4-8.2) 04/14/19 10:50 Albumin 3.2 g/dl (3.4-5.0) L 04/14/19 10:50 RPR Titer Nonreactive (NONREACTIVE) 04/14/19 10:50 HIV 1&2 Ag/Ab, 4th Gen Non reactive (Non Reactive) 04/14/19 09:00 lab noted long history of diabetes and obese grossly 04/18/19 14:35 Assessment: 04/18/19 14:35 alcohol withdrawal Plan: librium regiment
[2019-04-18] MEDS: DOCUSATE SODIUM 100 MG CAPSULE (FP) PO SCH (22:25)
[2019-04-18] MEDS: SENNOSIDES 8.6MG TABLET (FP) PO SCH (22:25)
[2019-04-18] MEDS: THIAMINE HCL 100 MG TABLET (FP) PO SCH (22:25)
[2019-04-19] MEDS ORDERED: METHADONE HCL 40 MG DISPERSABLE TABLET ONE (05:00)
[2019-04-19] MEDS ORDERED: METHADONE HCL 10 MG TABLET ONE (05:00)
[2019-04-19] MEDS ORDERED: chlordiazePOXIDE HCL 10 MG CAPSULE PO ONE (05:00)
[2019-04-19] MEDS: METHADONE 80 MG, METHADONE 10 MG PO SCH (05:38)
[2019-04-19] MEDS: metFORMIN HCL 500 MG TABLET (FP) PO SCH ×2 (06:26→17:30)
--- NOTE | 2019-04-19 09:04 | DS ---
[facility] Detox Discharge Summary Admission Date: 04/14/19 Discharge Date: 04/19/19 - History Present History: Alcohol Dependence Additional Comments: 43 years old male admitted on 04/14/19 for alcohol withdrawal sx management treated with librium regiment patient has completed librium regiment and tolerated well seen by psychiatrist resume wellbutrin and belsomra alert oriented x 3 respiratory clear lungs bilaterally on auscultation extremities full range of motion skin warm and dry Pertinent Past History: time for discharge 45 minutes patient continues demand increasing neurontine dosage for neurogenic pain health teaching on risks of respiratory depression - Physical Exam Results Vital Signs: Vital Signs Temperature 98.3 F 04/19/19 05:24 Pulse Rate 81 04/19/19 05:24 Respiratory Rate 18 04/19/19 06:54 Blood Pressure 90/61 04/19/19 05:24 O2 Sat by Pulse Oximetry (%) Pertinent Admission Physical Exam Findings: alcohol withdrawal Laboratory Last Values WBC 7.3 K/mm3 (4.0-10.0) 04/14/19 10:50 RBC 4.88 M/mm3 (4.00-5.60) 04/14/19 10:50 Hgb 12.0 GM/dL (11.7-16.9) 04/14/19 10:50 Hct 37.3 % (35.4-49) 04/14/19 10:50 MCV 76.3 fl (80-96) L 04/14/19 10:50 MCH 24.6 pg (25.7-33.7) L 04/14/19 10:50 MCHC 32.2 g/dl (32.0-35.9) 04/14/19 10:50 RDW 15.6 % (11.9-15.9) D 04/14/19 10:50 Plt Count 203 K/MM3 (134-434) 04/14/19 10:50 MPV 9.0 fl (7.5-11.1) 04/14/19 10:50 Sodium 139 mmol/L (136-145) 04/14/19 10:50 Potassium 3.7 mmol/L (3.5-5.1) 04/14/19 10:50 Chloride 104 mmol/L (98-107) 04/14/19 10:50 Carbon Dioxide 27 mmol/L (21-32) 04/14/19 10:50 Anion Gap 8 MMOL/L (8-16) 04/14/19 10:50 BUN 10.8 mg/dL (7-18) 04/14/19 10:50 Creatinine 1.1 mg/dL (0.55-1.3) 04/14/19 10:50 Est GFR (CKD-EPI)AfAm 94.79 04/14/19 10:50 Est GFR (CKD-EPI)NonAf 81.78 04/14/19 10:50 POC Glucometer 132 UNITS (80-120) 04/19/19 05:42 Random Glucose 265 mg/dL (74-106) H 04/14/19 10:50 Calcium 8.6 mg/dL (8.5-10.1) 04/14/19 10:50 Total Bilirubin 0.4 mg/dL (0.2-1) 04/14/19 10:50 AST 12 U/L (15-37) L 04/14/19 10:50 ALT 22 U/L (13-61) 04/14/19 10:50 Alkaline Phosphatase 79 U/L (45-117) 04/14/19 10:50 Total Protein 6.5 g/dl (6.4-8.2) 04/14/19 10:50 Albumin 3.2 g/dl (3.4-5.0) L 04/14/19 10:50 RPR Titer Nonreactive (NONREACTIVE) 04/14/19 10:50 HIV 1&2 Ag/Ab, 4th Gen Non reactive (Non Reactive) 04/14/19 09:00 lab noted long history of diabetes - Treatment Hospital Course: Detox Protocol Followed, Detoxed Safely, Responded well, Discharged Condition Good, Rehab Referral Accepted Patient has Accepted [facility] Referral [facility] - Medication Discharge Medications: Ambulatory Orders Docusate Sodium [Colace] 200 mg PO HS 04/01/18 Sennosides [Senna -] 3 tab PO HS 04/01/18 Lisinopril 10 mg PO DAILY #15 tablet 10/02/18 Metformin HCl [Glucophage] 1,000 mg PO BID #60 tablet 10/02/18 Tiotropium Stover [Spiriva] 1 inh IH DAILY #30 cap.w.dev 10/02/18 - Diagnosis (1) Alcohol dependence with uncomplicated withdrawal Current Visit: Yes Status: Acute (2) Nicotine dependence Current Visit: Yes Status: Acute Qualifiers: Nicotine product type: cigarettes Substance use status: in withdrawal Qualified Code(s): F17.213 - Nicotine dependence, cigarettes, with withdrawal (3) Substance induced mood disorder Current Visit: Yes Status: Suspected (4) Type II diabetes mellitus Current Visit: Yes Status: Chronic 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-way use Diabetes mellitus complication status: without complication Qualified Code(s): E11.9 - Type 2 diabetes mellitus without complications (5) Asthma Current Visit: Yes Status: Chronic Qualifiers: Asthma severity: mild Asthma persistence: intermittent Asthma complication type: uncomplicated Qualified Code(s): J45.20 - Mild intermittent asthma, uncomplicated (6) Hypertension Current Visit: Yes Status: Chronic Qualifiers: Hypertension type: essential hypertension Qualified Code(s): I10 - Essential (primary) hypertension (7) Morbid obesity with BMI of 50.0-59.9, adult Current Visit: Yes Status: Chronic (8) PPD positive, treated Current Visit: Yes Status: Resolved (9) Methadone maintenance therapy patient Current Visit: Yes Status: Chronic - AMA Did Patient Leave Against Medical Advice: No CIWA Score - CIWA Score Nausea/Vomitin-No Nausea/No Vomiting Muscle Tremors: 1-None Visible, but [place] Anxiety: 0-No Anxiety, at Ease Agitation: 0-Normal Activity Paroxysmal Sweats: No Perspiration Orientation: 0-Oriented Tacttile Disturbances: 0-None Auditory Disturbances: 0-None Visual Disturbances: 0-None Headache: 1-Very Mild CIWA-Ar Total Score: 2
[2019-04-19] MEDS: PRENATAL VITAMINS W/ FOLIC ACID TABLET (FP) PO SCH (10:10)
[2019-04-19] MEDS: TIOTROPIUM BROMIDE 2.5 MCG (SPIRIVA) RESPIMAT INHALER IH SCH (10:10)
[2019-04-19] MEDS: LISINOPRIL 10 MG TABLET (FP) PO SCH (10:11)
[2019-04-19 17:42] VITALS: BP 135/64; PULSE 82; TEMP 97.9
== END 2019-04-19 20:08 | disposition other institution (70) | DRG 773 ==
LOC: YASAS 09:47 → Y3N 11:11
PROVIDERS: ADMIT Allergy & Immunology; ATTEND Allergy & Immunology
PROC: HZ2ZZZZ Detoxification Services for Substance Abuse Treatment (ICD-10-PCS; principal; 2019-04-14)
DX: F10.230 Alcohol dependence with withdrawal, uncomplicated (principal); F11.20 Opioid dependence, uncomplicated; F14.20 Cocaine dependence, uncomplicated; F12.20 Cannabis dependence, uncomplicated; F17.213 Nicotine dependence, cigarettes, with withdrawal; F19.282 Other psychoactive substance dependence with psychoactive substance-induced sleep disorder; F19.24 Other psychoactive substance dependence with psychoactive substance-induced mood disorder; F33.9 Major depressive disorder, recurrent, unspecified; I10 Essential (primary) hypertension; J45.20 Mild intermittent asthma, uncomplicated; E11.9 Type 2 diabetes mellitus without complications; Z79.84 Long term (current) use of oral hypoglycemic drugs; R76.11 Nonspecific reaction to tuberculin skin test without active tuberculosis; E66.01 Morbid (severe) obesity due to excess calories; Z68.43 Body mass index [BMI] 50.0-59.9, adult; Z91.013 Allergy to seafood; Z98.84 Bariatric surgery status; Z90.49 Acquired absence of other specified parts of digestive tract
CPT/HCPCS: 36415; 71046-TC-FY; 80053; 82962; 85027; 86593; 87389

== ENCOUNTER 2019-04-19 20:17 | Inpatient (IN) | payer OTHER ==
--- NOTE | 2019-04-19 15:47 | HP ---
[facility] Rehab Assess/Revision - Admission History Admitted to Rehab from: [facility] Date of Admission to Rehab: 04/19/19 - Findings Detox History & Physical reviewed: Yes Concur with findings: Yes Comments/Additional Findings: transferred from detox to rehab admission as per protocol Inpatient Rehab Admission - Rehab Decision to Admit Inpatient rehab admission?: Yes - Initial Determination Are CD services needed?: Yes Free of communicable disease: Yes Not in need of hospitalization: Yes - Rehab Admission Criteria Previous failed treatment: Yes Poor recovery environment: Yes Comorbidities: Yes Lacks judgement: Yes Patient is meeting Inpatient Rehab admission criteria:: Yes
[~2019-04-19 20:17] MED LIST changes: +ACETAMINOPHEN 325 MG TABLET (FP) PO PRN; -NICOTINE POLACRILEX 2 MG GUM BUC PRN; +guaiFENesin 200 MG/10 ML 10 ML UNIT-DOSE CUPS PO PRN; -guaiFENesin/D-METHORPHAN HB 10 ML UNIT-DOSE CUPS PO PRN
[2019-04-19] MEDS: metFORMIN HCL 500 MG TABLET (FP) PO SCH (21:50)
[2019-04-19] MEDS: INSULIN SLIDING SCALE (NOVOLOG) 1 VIAL SQ SCH (21:50)
[2019-04-19] MEDS: SENNOSIDES 8.6MG TABLET (FP) PO SCH (21:51)
[2019-04-19] MEDS: DOCUSATE SODIUM 100 MG CAPSULE (FP) PO SCH (21:51)
[2019-04-19] MEDS: THIAMINE HCL 100 MG TABLET (FP) PO SCH (21:51)
[2019-04-20] MEDS ORDERED: METHADONE HCL 10 MG TABLET ONE (05:26)
[2019-04-20] MEDS ORDERED: METHADONE HCL 40 MG DISPERSABLE TABLET ONE (05:26)
[2019-04-20] MEDS ORDERED: METHADONE HCL 10 MG TABLET PO SCH (06:00)
[2019-04-20] MEDS: METHADONE 80 MG, METHADONE 10 MG PO SCH (06:15)
[2019-04-20] MEDS: metFORMIN HCL 500 MG TABLET (FP) PO SCH ×2 (06:23→16:30)
[2019-04-20] MEDS: INSULIN SLIDING SCALE (NOVOLOG) 1 VIAL SQ SCH ×2 (06:24→16:30)
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
[2019-04-20] MEDS: LISINOPRIL 10 MG TABLET (FP) PO SCH (10:43)
[2019-04-20] MEDS: PRENATAL VITAMINS W/ FOLIC ACID TABLET (FP) PO SCH (10:43)
[2019-04-20] MEDS: TIOTROPIUM BROMIDE 2.5 MCG (SPIRIVA) RESPIMAT INHALER IH SCH (10:46)
[2019-04-20] MEDS ORDERED: INSULIN (NOVOLOG) ASPART 100 UNITS/ML 10ML VIAL ONE ×2 (16:28→21:21)
[2019-04-20] MEDS: DOCUSATE SODIUM 100 MG CAPSULE (FP) PO SCH (21:19)
[2019-04-20] MEDS: MELATONIN 5 MG TABLETS PO PRN (21:19)
[2019-04-20] MEDS: SENNOSIDES 8.6MG TABLET (FP) PO SCH (21:19)
[2019-04-20] MEDS: THIAMINE HCL 100 MG TABLET (FP) PO SCH (21:19)
[2019-04-20] MEDS ORDERED: SUVOREXANT 10 MG TABLET PO PRN (22:00)
[2019-04-21] MEDS ORDERED: METHADONE HCL 10 MG TABLET ONE (05:34)
[2019-04-21] MEDS ORDERED: METHADONE HCL 40 MG DISPERSABLE TABLET ONE (05:34)
[2019-04-21] MEDS: METHADONE 80 MG, METHADONE 10 MG PO SCH (06:14)
[2019-04-21] MEDS: INSULIN SLIDING SCALE (NOVOLOG) 1 VIAL SQ SCH ×2 (06:54→17:02)
[2019-04-21] MEDS: metFORMIN HCL 500 MG TABLET (FP) PO SCH ×2 (06:54→16:59)
[2019-04-21] MEDS ORDERED: AMMONIUM LACTATE 12% LOTION 225 GM BOTTLE TP PRN (08:44)
[2019-04-21] MEDS: PRENATAL VITAMINS W/ FOLIC ACID TABLET (FP) PO SCH (10:35)
[2019-04-21] MEDS: LISINOPRIL 10 MG TABLET (FP) PO SCH (10:36)
[2019-04-21] MEDS: TIOTROPIUM BROMIDE 2.5 MCG (SPIRIVA) RESPIMAT INHALER IH SCH (10:36)
[2019-04-21] MEDS ORDERED: PT OWN MED DRAWER 7, Y5N ONE (10:38)
[2019-04-21] MEDS: COLLOIDAL OATMEAL 1 BAR EACH TP PRN (10:38)
[2019-04-21] MEDS: DOCUSATE SODIUM 100 MG CAPSULE (FP) PO SCH (21:39)
[2019-04-21] MEDS: MELATONIN 5 MG TABLETS PO PRN (21:39)
[2019-04-21] MEDS: THIAMINE HCL 100 MG TABLET (FP) PO SCH (21:39)
[2019-04-21] MEDS: SENNOSIDES 8.6MG TABLET (FP) PO SCH (21:39)
[2019-04-22] MEDS ORDERED: METHADONE HCL 40 MG DISPERSABLE TABLET ONE (05:52)
[2019-04-22] MEDS ORDERED: METHADONE HCL 10 MG TABLET ONE (05:52)
[2019-04-22] MEDS: METHADONE 80 MG, METHADONE 10 MG PO SCH (06:20)
[2019-04-22] MEDS: INSULIN SLIDING SCALE (NOVOLOG) 1 VIAL SQ SCH ×2 (06:22→17:01)
[2019-04-22] MEDS: metFORMIN HCL 500 MG TABLET (FP) PO SCH ×2 (06:22→17:00)
[2019-04-22] MEDS: LISINOPRIL 10 MG TABLET (FP) PO SCH (10:23)
[2019-04-22] MEDS: PRENATAL VITAMINS W/ FOLIC ACID TABLET (FP) PO SCH (10:23)
[2019-04-22] MEDS: TIOTROPIUM BROMIDE 2.5 MCG (SPIRIVA) RESPIMAT INHALER IH SCH (10:24)
[2019-04-22] MEDS ORDERED: INSULIN (NOVOLOG) ASPART 100 UNITS/ML 10ML VIAL ONE (16:41)
[2019-04-22] MEDS: MELATONIN 5 MG TABLETS PO PRN (21:31)
[2019-04-22] MEDS: SENNOSIDES 8.6MG TABLET (FP) PO SCH (21:31)
[2019-04-22] MEDS: THIAMINE HCL 100 MG TABLET (FP) PO SCH (21:31)
[2019-04-22] MEDS: DOCUSATE SODIUM 100 MG CAPSULE (FP) PO SCH (21:32)
[2019-04-23] MEDS ORDERED: METHADONE HCL 40 MG DISPERSABLE TABLET ONE (06:00)
[2019-04-23] MEDS ORDERED: METHADONE HCL 10 MG TABLET ONE (06:00)
[2019-04-23] MEDS: METHADONE 80 MG, METHADONE 10 MG PO SCH (06:42)
[2019-04-23] MEDS: metFORMIN HCL 500 MG TABLET (FP) PO SCH ×2 (06:43→16:34)
[2019-04-23] MEDS: INSULIN SLIDING SCALE (NOVOLOG) 1 VIAL SQ SCH ×2 (06:44→16:36)
[2019-04-23] MEDS: PRENATAL VITAMINS W/ FOLIC ACID TABLET (FP) PO SCH (10:36)
[2019-04-23] MEDS: LISINOPRIL 10 MG TABLET (FP) PO SCH (10:36)
[2019-04-23] MEDS: TIOTROPIUM BROMIDE 2.5 MCG (SPIRIVA) RESPIMAT INHALER IH SCH (10:37)
[2019-04-23] MEDS ORDERED: PT OWN MED DRAWER 7, Y5N ONE (10:38)
[2019-04-23] MEDS: THIAMINE HCL 100 MG TABLET (FP) PO SCH (21:48)
[2019-04-23] MEDS: DOCUSATE SODIUM 100 MG CAPSULE (FP) PO SCH (21:48)
[2019-04-23] MEDS: SENNOSIDES 8.6MG TABLET (FP) PO SCH (21:48)
[2019-04-23] MEDS ORDERED: SUVOREXANT 10 MG TABLET PO PRN (22:00)
[2019-04-24] MEDS ORDERED: METHADONE HCL 10 MG TABLET ONE (05:32)
[2019-04-24] MEDS ORDERED: METHADONE HCL 40 MG DISPERSABLE TABLET ONE (05:33)
[2019-04-24] MEDS: METHADONE 80 MG, METHADONE 10 MG PO SCH (06:16)
[2019-04-24] MEDS: INSULIN SLIDING SCALE (NOVOLOG) 1 VIAL SQ SCH ×2 (06:54→16:58)
[2019-04-24] MEDS: metFORMIN HCL 500 MG TABLET (FP) PO SCH ×2 (06:54→16:57)
[2019-04-24] MEDS: PRENATAL VITAMINS W/ FOLIC ACID TABLET (FP) PO SCH (10:28)
[2019-04-24] MEDS: LISINOPRIL 10 MG TABLET (FP) PO SCH (10:28)
[2019-04-24] MEDS: TIOTROPIUM BROMIDE 2.5 MCG (SPIRIVA) RESPIMAT INHALER IH SCH (10:29)
[2019-04-24] MEDS: THIAMINE HCL 100 MG TABLET (FP) PO SCH (22:01)
[2019-04-24] MEDS: DOCUSATE SODIUM 100 MG CAPSULE (FP) PO SCH (22:01)
[2019-04-24] MEDS: SENNOSIDES 8.6MG TABLET (FP) PO SCH (22:01)
[2019-04-25] MEDS ORDERED: METHADONE HCL 40 MG DISPERSABLE TABLET ONE (05:33)
[2019-04-25] MEDS ORDERED: METHADONE HCL 10 MG TABLET ONE (05:33)
[2019-04-25] MEDS: METHADONE 80 MG, METHADONE 10 MG PO SCH (06:33)
[2019-04-25] MEDS: INSULIN SLIDING SCALE (NOVOLOG) 1 VIAL SQ SCH ×2 (06:48→16:43)
[2019-04-25] MEDS: metFORMIN HCL 500 MG TABLET (FP) PO SCH ×2 (06:48→17:03)
[2019-04-25] MEDS: PRENATAL VITAMINS W/ FOLIC ACID TABLET (FP) PO SCH (09:38)
[2019-04-25] MEDS: LISINOPRIL 10 MG TABLET (FP) PO SCH (09:38)
[2019-04-25] MEDS: TIOTROPIUM BROMIDE 2.5 MCG (SPIRIVA) RESPIMAT INHALER IH SCH (09:39)
[2019-04-25] MEDS: DOCUSATE SODIUM 100 MG CAPSULE (FP) PO SCH (21:34)
[2019-04-25] MEDS: SENNOSIDES 8.6MG TABLET (FP) PO SCH (21:34)
[2019-04-25] MEDS: THIAMINE HCL 100 MG TABLET (FP) PO SCH (21:34)
[2019-04-26] MEDS ORDERED: METHADONE HCL 10 MG TABLET ONE (05:53)
[2019-04-26] MEDS ORDERED: METHADONE HCL 40 MG DISPERSABLE TABLET ONE (05:53)
[2019-04-26] MEDS: METHADONE 80 MG, METHADONE 10 MG PO SCH (06:43)
[2019-04-26] MEDS: metFORMIN HCL 500 MG TABLET (FP) PO SCH ×2 (06:45→16:59)
[2019-04-26] MEDS: INSULIN SLIDING SCALE (NOVOLOG) 1 VIAL SQ SCH ×2 (06:49→17:00)
[2019-04-26] MEDS: LISINOPRIL 10 MG TABLET (FP) PO SCH (10:12)
[2019-04-26] MEDS: PRENATAL VITAMINS W/ FOLIC ACID TABLET (FP) PO SCH (10:12)
[2019-04-26] MEDS: TIOTROPIUM BROMIDE 2.5 MCG (SPIRIVA) RESPIMAT INHALER IH SCH (10:12)
[2019-04-26] MEDS: COLLOIDAL OATMEAL 1 BAR EACH TP PRN (10:15)
[2019-04-26] MEDS: DOCUSATE SODIUM 100 MG CAPSULE (FP) PO SCH (21:33)
[2019-04-26] MEDS: SENNOSIDES 8.6MG TABLET (FP) PO SCH (21:34)
[2019-04-26] MEDS: THIAMINE HCL 100 MG TABLET (FP) PO SCH (21:34)
[2019-04-26] MEDS ORDERED: SUVOREXANT 10 MG TABLET PO PRN (22:00)
[2019-04-27] MEDS ORDERED: METHADONE HCL 10 MG TABLET ONE (05:55)
[2019-04-27] MEDS ORDERED: METHADONE HCL 40 MG DISPERSABLE TABLET ONE (05:55)
[2019-04-27] MEDS: METHADONE 80 MG, METHADONE 10 MG PO SCH (06:27)
[2019-04-27] MEDS: metFORMIN HCL 500 MG TABLET (FP) PO SCH (06:28)
[2019-04-27] MEDS: INSULIN SLIDING SCALE (NOVOLOG) 1 VIAL SQ SCH (06:29)
[2019-04-27 06:51] VITALS: TEMP 98.1
[2019-04-27] MEDS: TIOTROPIUM BROMIDE 2.5 MCG (SPIRIVA) RESPIMAT INHALER IH SCH (09:31)
[2019-04-27] MEDS: PRENATAL VITAMINS W/ FOLIC ACID TABLET (FP) PO SCH (09:33)
[2019-04-27] MEDS: LISINOPRIL 10 MG TABLET (FP) PO SCH (09:33)
[2019-04-27 09:52] VITALS: BP 126/74; PULSE 90
--- NOTE | 2019-04-27 13:17 | DS ---
[facility] Rehab Discharge Summary - [facility] Rehab Discharge Summary Admission Date: 04/19/19 Discharge Date: 04/27/19 - History Present History: Alcohol dependence, MMTP Pertinent Past History: Mr. Gomez presents for alcohol and heroin use disorder. He is a 43 yo gentleman with a PMH of HTN, DM, Asthma and gastric bypass surgery. He was last here in October 2018 and left AMA. Psych: depression on Wellbutrin, Vistaril and Ambien Substance use history Alcohol, first use age 14y, last use last night at 8pm, quantity: 15 beers daily. No history of seizures. Had a black out in 2018. Heroin: first use age 18y, last use last night 8pm, quantity: 5-6 bags dialy. No ODs. In a methadone program, states he is taking 90 mg daily, Crack/cocaine: first use age 39y, last use last nigth, quantity: 10-12 bags per day Nicotine: first use age 12 y,5 cigs per day Marijuana: first use age 14 y,2 blunts every week - Discharge Physical Exam Vital Signs: Vital Signs Temperature 98.1 F 04/27/19 06:51 Pulse Rate 90 04/27/19 09:20 Respiratory Rate 18 04/27/19 09:20 Blood Pressure 126/74 04/27/19 09:20 O2 Sat by Pulse Oximetry (%) Pertinent Admission Physical Exam Findings: hysical General Appearance:No Apparent Distress, Obese HEENTM: Normocephalic Respiratory: unlabored Neck: supple Abdominal: obese Musculoskeletal: full weight bearing, steady gait Neurological: Fully Oriented, Alert, - Treatment Discharge Condition: Outpatient referral accepted (medically stable for discharge. Will return to [facility] [place] for MMTP) Hospital Course: patient was adherent to his medications. - Medication Discharge Medications: Ambulatory Orders Docusate Sodium [Colace] 200 mg PO HS #10 capsule 04/27/19 Lisinopril 10 mg PO DAILY #15 tablet 04/27/19 Metformin HCl [Glucophage] 1,000 mg PO BID #60 tablet 04/27/19 Sennosides [Senna -] 3 tab PO HS #30 tablet 04/27/19 Tiotropium [place] [Spiriva] 1 inh IH DAILY #30 cap.w.dev 04/27/19 - Medication-Assisted Treatment (MAT) Medication-Assisted Treatment (MAT): Yes MAT Follow-up Referral: MMTP at [facility] [place] - Discharge Instructions Diet, activity, other medical instructions: Diet: Activity: Other medical instructions: - Follow-up Referral Minutes to complete discharge: 10 - AMA Did Patient Leave Against Medical Advice: No
== END 2019-04-27 13:51 | disposition home or self-care (01) | DRG 772 ==
LOC: YASAS 20:17 → Y3W 20:19
PROVIDERS: ADMIT Allergy & Immunology; ATTEND Allergy & Immunology
PROC: HZ42ZZZ Group Counseling for Substance Abuse Treatment, Cognitive-Behavioral (ICD-10-PCS; principal; 2019-04-19)
DX: F10.20 Alcohol dependence, uncomplicated (principal); F11.20 Opioid dependence, uncomplicated; F17.210 Nicotine dependence, cigarettes, uncomplicated; F19.24 Other psychoactive substance dependence with psychoactive substance-induced mood disorder; F32.9 Major depressive disorder, single episode, unspecified; I10 Essential (primary) hypertension; E11.9 Type 2 diabetes mellitus without complications; J45.909 Unspecified asthma, uncomplicated; Z98.84 Bariatric surgery status; Z79.84 Long term (current) use of oral hypoglycemic drugs
CPT/HCPCS: 82962

== ENCOUNTER 2020-04-05 12:04 | Inpatient (IN) | payer OTHER ==
[2020-04-05] MEDS ORDERED: ACETAMINOPHEN 325 MG TABLET (FP) PO PRN (13:09)
[2020-04-05] MEDS ORDERED: MAG HYDROX/AL HYDROX/SIMETH 30 ML UNIT-DOSE CUP PO PRN (13:09)
[2020-04-05] MEDS ORDERED: BISMUTH SUBSALICYLATE 524 MG/30 ML UD PO PRN (13:09)
[2020-04-05] MEDS ORDERED: MAGNESIUM CITRATE 300 ML BOTTLE PO PRN (13:09)
[2020-04-05] MEDS ORDERED: NICOTINE POLACRILEX 2 MG GUM BUC PRN (13:09)
[2020-04-05] MEDS ORDERED: ONDANSETRON *ODT* 4 MG TABLET SL PRN (13:09)
[2020-04-05] MEDS ORDERED: MAGNESIUM HYDROX 2400MG/30ML ORAL SUSPENSION 30 ML CUP PO PRN (13:09)
[2020-04-05] MEDS ORDERED: MENTHOL/PHENOL 1 EACH UD MM PRN (13:09)
[2020-04-05] MEDS ORDERED: COLLOIDAL OATMEAL 1 BAR EACH TP PRN (13:13)
[2020-04-05] MEDS ORDERED: AMMONIUM LACTATE 12% LOTION 225 GM BOTTLE TP PRN (13:14)
[2020-04-05 13:47] VITALS: BMI 51.7
[2020-04-05] MEDS: NICOTINE 21 MG/24 HOURS TOPICAL PATCH TD SCH (15:00)
[2020-04-05] MEDS: TIOTROPIUM BROMIDE 2.5 MCG (SPIRIVA) RESPIMAT INHALER IH SCH (15:01)
[2020-04-05] MEDS: LISINOPRIL 10 MG TABLET PO SCH (15:04)
[2020-04-05] MEDS: ACETAMINOPHEN 325 MG TABLET (FP) PO PRN (15:04)
[2020-04-05] MEDS: hydrOXYzine PAMOATE 25 MG CAPSULE (FP) PO SCH ×3 (15:05→22:44)
[2020-04-05] MEDS: chlordiazePOXIDE HCL 25 MG CAPSULE PO PRN (15:14)
[2020-04-05 17:47] LABS: POTASSIUM 3.9 mmol/L (3.5-5.1)
[2020-04-05 17:51] LABS: HEMATOCRIT 36.1 % (35.4-49); HEMOGLOBIN 11.7 GM/dL (11.7-16.9); MCH 24.4 pg (25.7-33.7); MCHC 32.5 g/dl (32.0-35.9); MEAN CELL VOLUME 75.1 fl (80-96); PLATELET COUNT 217 K/MM3 (134-434); RDW 15.3 % (11.9-15.9); WHITE BLOOD COUNT 8.7 K/mm3 (4.0-10.0)
[2020-04-05 17:53] LABS: ALBUMIN 3.4 g/dl (3.4-5.0); BLOOD UREA NITROGEN 13.8 mg/dL (7-18); CALCIUM 8.5 mg/dL (8.5-10.1)
[2020-04-05 17:57] LABS: CREATININE 1.1 mg/dL (0.55-1.3)
[2020-04-05 17:58] LABS: BILIRUBIN,TOTAL 0.7 mg/dL (0.2-1); TOT PROT 6.8 g/dl (6.4-8.2)
[2020-04-05] MEDS: metFORMIN HCL 500 MG TABLET (FP) PO SCH (18:00)
[2020-04-05] MEDS: chlordiazePOXIDE HCL 25 MG CAPSULE PO SCH ×2 (18:10→22:44)
[2020-04-05] MEDS: DOCUSATE SODIUM 100 MG CAPSULE (FP) PO SCH (22:44)
[2020-04-05] MEDS: MELATONIN 5 MG TABLETS PO SCH (22:44)
[2020-04-05] MEDS: THIAMINE HCL 100 MG TABLET (FP) PO SCH (22:44)
[2020-04-06] MEDS ORDERED: METHADONE HCL 10 MG TABLET ONE (04:27)
[2020-04-06] MEDS ORDERED: METHADONE HCL 40 MG DISPERSABLE TABLET ONE (04:28)
[2020-04-06] MEDS ORDERED: METHADONE HCL 10 MG TABLET PO SCH (06:00)
[2020-04-06] MEDS: METHADONE 40 MG, METHADONE 30 MG PO SCH (06:43)
[2020-04-06] MEDS: ACETAMINOPHEN 325 MG TABLET (FP) PO PRN ×2 (06:44→21:14)
[2020-04-06] MEDS: metFORMIN HCL 500 MG TABLET (FP) PO SCH ×2 (06:44→19:02)
[2020-04-06] MEDS: hydrOXYzine PAMOATE 25 MG CAPSULE (FP) PO SCH ×5 (06:44→23:04)
[2020-04-06] MEDS: chlordiazePOXIDE HCL 25 MG CAPSULE PO SCH ×4 (06:45→23:03)
[2020-04-06] MEDS: TIOTROPIUM BROMIDE 2.5 MCG (SPIRIVA) RESPIMAT INHALER IH SCH (10:36)
[2020-04-06] MEDS: LISINOPRIL 10 MG TABLET PO SCH (10:36)
[2020-04-06] MEDS: IBUPROFEN 400 MG TABLET (FP) PO PRN (10:42)
[2020-04-06] MEDS: METHOCARBAMOL 500 MG TABLET PO PRN ×2 (10:43→21:14)
[2020-04-06] MEDS: PRENATAL VITAMINS W/ FOLIC ACID TABLET (FP) PO SCH (10:44)
[2020-04-06] MEDS: NICOTINE 21 MG/24 HOURS TOPICAL PATCH TD SCH (10:45)
[2020-04-06] MEDS: chlordiazePOXIDE HCL 25 MG CAPSULE PO PRN (21:15)
[2020-04-06] MEDS: DOCUSATE SODIUM 100 MG CAPSULE (FP) PO SCH (23:03)
[2020-04-06] MEDS: THIAMINE HCL 100 MG TABLET (FP) PO SCH (23:04)
[2020-04-06] MEDS: MELATONIN 5 MG TABLETS PO SCH (23:04)
[2020-04-07] MEDS: ACETAMINOPHEN 325 MG TABLET (FP) PO PRN ×2 (03:44→10:43)
[2020-04-07] MEDS: METHOCARBAMOL 500 MG TABLET PO PRN ×2 (03:44→20:10)
[2020-04-07] MEDS ORDERED: METHADONE HCL 40 MG DISPERSABLE TABLET ONE (04:19)
[2020-04-07] MEDS ORDERED: METHADONE HCL 10 MG TABLET ONE (04:19)
[2020-04-07] MEDS: METHADONE 40 MG, METHADONE 30 MG PO SCH (06:40)
[2020-04-07] MEDS: chlordiazePOXIDE HCL 25 MG CAPSULE PO SCH ×4 (06:41→22:46)
[2020-04-07] MEDS: hydrOXYzine PAMOATE 25 MG CAPSULE (FP) PO SCH ×5 (06:42→22:45)
[2020-04-07] MEDS: metFORMIN HCL 500 MG TABLET (FP) PO SCH ×2 (07:07→16:54)
[2020-04-07] MEDS: NICOTINE 21 MG/24 HOURS TOPICAL PATCH TD SCH (10:41)
[2020-04-07] MEDS: TIOTROPIUM BROMIDE 2.5 MCG (SPIRIVA) RESPIMAT INHALER IH SCH (10:41)
[2020-04-07] MEDS: PRENATAL VITAMINS W/ FOLIC ACID TABLET (FP) PO SCH (10:42)
[2020-04-07] MEDS: LISINOPRIL 10 MG TABLET PO SCH (10:42)
[2020-04-07] MEDS: chlordiazePOXIDE HCL 25 MG CAPSULE PO PRN (20:09)
[2020-04-07] MEDS: DOCUSATE SODIUM 100 MG CAPSULE (FP) PO SCH (22:45)
[2020-04-07] MEDS: MELATONIN 5 MG TABLETS PO SCH (22:46)
[2020-04-07] MEDS: THIAMINE HCL 100 MG TABLET (FP) PO SCH (22:47)
[2020-04-08] MEDS ORDERED: chlordiazePOXIDE HCL 10 MG CAPSULE PO PRN
[2020-04-08] MEDS: hydrOXYzine PAMOATE 25 MG CAPSULE (FP) PO SCH ×5 (08:00→22:24)
[2020-04-08] MEDS: metFORMIN HCL 500 MG TABLET (FP) PO SCH ×2 (08:00→16:53)
[2020-04-08] MEDS: chlordiazePOXIDE HCL 10 MG CAPSULE PO SCH ×4 (08:00→22:26)
[2020-04-08] MEDS: METHADONE 40 MG, METHADONE 30 MG PO SCH (08:00)
[2020-04-08] MEDS ORDERED: METHADONE HCL 40 MG DISPERSABLE TABLET ONE (08:45)
[2020-04-08] MEDS ORDERED: METHADONE HCL 10 MG TABLET ONE (08:45)
[2020-04-08] MEDS: LISINOPRIL 10 MG TABLET PO SCH (11:12)
[2020-04-08] MEDS: TIOTROPIUM BROMIDE 2.5 MCG (SPIRIVA) RESPIMAT INHALER IH SCH (11:12)
[2020-04-08] MEDS: NICOTINE 21 MG/24 HOURS TOPICAL PATCH TD SCH (11:14)
[2020-04-08] MEDS: PRENATAL VITAMINS W/ FOLIC ACID TABLET (FP) PO SCH (11:14)
[2020-04-08] MEDS: METHOCARBAMOL 500 MG TABLET PO PRN (22:23)
[2020-04-08] MEDS: IBUPROFEN 400 MG TABLET (FP) PO PRN (22:23)
[2020-04-08] MEDS: MELATONIN 5 MG TABLETS PO SCH (22:24)
[2020-04-08] MEDS: THIAMINE HCL 100 MG TABLET (FP) PO SCH (22:24)
[2020-04-08] MEDS: DOCUSATE SODIUM 100 MG CAPSULE (FP) PO SCH (22:26)
[2020-04-09] MEDS: chlordiazePOXIDE HCL 10 MG CAPSULE PO SCH ×2 (07:00→17:19)
[2020-04-09] MEDS: hydrOXYzine PAMOATE 25 MG CAPSULE (FP) PO SCH ×5 (07:29→22:47)
[2020-04-09] MEDS: METHADONE 40 MG, METHADONE 30 MG PO SCH (07:29)
[2020-04-09] MEDS: metFORMIN HCL 500 MG TABLET (FP) PO SCH ×2 (08:00→17:18)
[2020-04-09] MEDS ORDERED: METHADONE HCL 10 MG TABLET ONE (08:14)
[2020-04-09] MEDS ORDERED: METHADONE HCL 40 MG DISPERSABLE TABLET ONE (08:14)
[2020-04-09] MEDS: NICOTINE 21 MG/24 HOURS TOPICAL PATCH TD SCH (11:23)
[2020-04-09] MEDS: PRENATAL VITAMINS W/ FOLIC ACID TABLET (FP) PO SCH (11:23)
[2020-04-09] MEDS: LISINOPRIL 10 MG TABLET PO SCH (11:23)
[2020-04-09] MEDS: TIOTROPIUM BROMIDE 2.5 MCG (SPIRIVA) RESPIMAT INHALER IH SCH (11:25)
[2020-04-09] MEDS: IBUPROFEN 400 MG TABLET (FP) PO PRN (11:33)
[2020-04-09] MEDS: METHOCARBAMOL 500 MG TABLET PO PRN (11:33)
[2020-04-09] MEDS: DOCUSATE SODIUM 100 MG CAPSULE (FP) PO SCH (22:47)
[2020-04-09] MEDS: THIAMINE HCL 100 MG TABLET (FP) PO SCH (22:47)
[2020-04-09] MEDS: MELATONIN 5 MG TABLETS PO SCH (22:48)
[2020-04-10] MEDS ORDERED: METHADONE HCL 40 MG DISPERSABLE TABLET ONE (04:53)
[2020-04-10] MEDS ORDERED: METHADONE HCL 10 MG TABLET ONE (04:53)
[2020-04-10] MEDS ORDERED: chlordiazePOXIDE HCL 10 MG CAPSULE PO ONE (05:00)
[2020-04-10] MEDS: METHADONE 40 MG, METHADONE 30 MG PO SCH (06:42)
[2020-04-10] MEDS: metFORMIN HCL 500 MG TABLET (FP) PO SCH ×2 (06:42→17:17)
[2020-04-10] MEDS: hydrOXYzine PAMOATE 25 MG CAPSULE (FP) PO SCH ×5 (06:42→22:22)
[2020-04-10] MEDS: LISINOPRIL 10 MG TABLET PO SCH (10:55)
[2020-04-10] MEDS: PRENATAL VITAMINS W/ FOLIC ACID TABLET (FP) PO SCH (10:55)
[2020-04-10] MEDS: ASPIRIN COATED 81 MG TABLET.EC PO SCH (10:55)
[2020-04-10] MEDS: TIOTROPIUM BROMIDE 2.5 MCG (SPIRIVA) RESPIMAT INHALER IH SCH (10:56)
[2020-04-10] MEDS: NICOTINE 21 MG/24 HOURS TOPICAL PATCH TD SCH (10:58)
[2020-04-10] MEDS: MELATONIN 5 MG TABLETS PO SCH (22:22)
[2020-04-10] MEDS: THIAMINE HCL 100 MG TABLET (FP) PO SCH (22:22)
[2020-04-10] MEDS: DOCUSATE SODIUM 100 MG CAPSULE (FP) PO SCH (22:22)
[2020-04-11] MEDS ORDERED: METHADONE HCL 10 MG TABLET ONE (04:00)
[2020-04-11] MEDS ORDERED: METHADONE HCL 40 MG DISPERSABLE TABLET ONE (04:01)
[2020-04-11] MEDS: metFORMIN HCL 500 MG TABLET (FP) PO SCH ×2 (06:54→17:40)
[2020-04-11] MEDS: hydrOXYzine PAMOATE 25 MG CAPSULE (FP) PO SCH ×2 (06:54→10:31)
[2020-04-11] MEDS: METHADONE 40 MG, METHADONE 30 MG PO SCH (06:54)
[2020-04-11] MEDS ORDERED: LISINOPRIL 10 MG TABLET PO SCH (10:00)
[2020-04-11] MEDS: NICOTINE 21 MG/24 HOURS TOPICAL PATCH TD SCH (10:30)
[2020-04-11] MEDS: PRENATAL VITAMINS W/ FOLIC ACID TABLET (FP) PO SCH (10:30)
[2020-04-11] MEDS: ASPIRIN COATED 81 MG TABLET.EC PO SCH (10:30)
[2020-04-11] MEDS: TIOTROPIUM BROMIDE 2.5 MCG (SPIRIVA) RESPIMAT INHALER IH SCH (10:31)
[2020-04-11 17:39] VITALS: BP 94/61; PULSE 99; TEMP 97.4
== END 2020-04-11 19:30 | disposition home or self-care (01) | DRG 773 ==
LOC: YASAS 12:04 → Y3N 13:40
PROVIDERS: ADMIT Allergy & Immunology; ATTEND Allergy & Immunology
PROC: HZ2ZZZZ Detoxification Services for Substance Abuse Treatment (ICD-10-PCS; principal; 2020-04-05)
DX: F11.23 Opioid dependence with withdrawal (principal); F10.230 Alcohol dependence with withdrawal, uncomplicated; F14.20 Cocaine dependence, uncomplicated; F12.20 Cannabis dependence, uncomplicated; F17.210 Nicotine dependence, cigarettes, uncomplicated; F19.282 Other psychoactive substance dependence with psychoactive substance-induced sleep disorder; F19.24 Other psychoactive substance dependence with psychoactive substance-induced mood disorder; F31.9 Bipolar disorder, unspecified; U07.1 COVID-19; I10 Essential (primary) hypertension; J45.20 Mild intermittent asthma, uncomplicated; E11.9 Type 2 diabetes mellitus without complications; Z79.84 Long term (current) use of oral hypoglycemic drugs; M19.90 Unspecified osteoarthritis, unspecified site; R76.11 Nonspecific reaction to tuberculin skin test without active tuberculosis; E66.01 Morbid (severe) obesity due to excess calories; Z68.43 Body mass index [BMI] 50.0-59.9, adult; Z91.013 Allergy to seafood; Z56.0 Unemployment, unspecified; Z59.0 Homelessness
CPT/HCPCS: 36415; 80053; 82962; 85027; 86780; 93005; 93010; C9803; Q0162; U0003

== ENCOUNTER 2020-07-12 16:01 | Inpatient (IN) | payer OTHER ==
[2020-07-12 17:58] VITALS: BMI 46.5
[2020-07-12] MEDS ORDERED: MELATONIN 5 MG TABLETS PO SCH (22:00)
[2020-07-12] MEDS ORDERED: MAGNESIUM HYDROX 2400MG/30ML ORAL SUSPENSION 30 ML CUP PO PRN (23:24)
[2020-07-12] MEDS ORDERED: NALOXONE HCL 0.4 MG/ML VIAL IM PRN (23:24)
[2020-07-12] MEDS ORDERED: LOPERAMIDE HCL 2 MG CAPSULE PO PRN (23:24)
[2020-07-12] MEDS ORDERED: P-EPHED 60MG/TRIPROLIDI 2.5MG TABLET PO PRN (23:24)
[2020-07-12] MEDS ORDERED: MAG HYDROX/AL HYDROX/SIMETH 30 ML UNIT-DOSE CUP PO PRN (23:24)
[2020-07-12] MEDS ORDERED: NALOXONE (NARCAN) HCL 4 MG/0.1 ML SPRAY NS PRN (23:24)
[2020-07-12] MEDS ORDERED: guaiFENesin 200 MG/10 ML 10 ML UNIT-DOSE CUPS PO PRN (23:24)
[2020-07-12] MEDS ORDERED: ACETAMINOPHEN 325 MG TABLET (FP) PO PRN (23:24)
[2020-07-12] MEDS ORDERED: NICOTINE POLACRILEX 2 MG GUM BC PRN (23:24)
[2020-07-12] MEDS ORDERED: MAGNESIUM CITRATE 300 ML BOTTLE PO PRN (23:24)
[2020-07-13] MEDS: metFORMIN HCL 500 MG TABLET (FP) PO SCH ×2 (07:06→16:32)
[2020-07-13] MEDS ORDERED: METHADONE HCL 10 MG TABLET PO SCH (07:45)
[2020-07-13] MEDS ORDERED: METHADONE HCL 40 MG DISPERSABLE TABLET ONE (09:24)
[2020-07-13] MEDS ORDERED: METHADONE HCL 10 MG TABLET ONE (09:24)
[2020-07-13] MEDS ORDERED: PATIENT'S OWN MEDICATION (NON-FORMULARY) (Tiotropium Bromide [Spiriva] 18 MCG Cap.W.Dev) IH SCH (10:00)
[2020-07-13] MEDS: hydrOXYzine PAMOATE 25 MG CAPSULE (FP) PO PRN (10:18)
[2020-07-13] MEDS: LISINOPRIL 10 MG TABLET PO SCH (10:18)
[2020-07-13] MEDS: TIOTROPIUM BROMIDE 2.5 MCG (SPIRIVA) RESPIMAT INHALER IH SCH (10:18)
[2020-07-13] MEDS: NICOTINE 21 MG/24 HOURS TOPICAL PATCH TD SCH (10:18)
[2020-07-13] MEDS: PRENATAL VITAMINS W/ FOLIC ACID TABLET (FP) PO SCH (10:18)
[2020-07-13] MEDS: METHADONE 80 MG, METHADONE 20 MG PO SCH (10:18)
[2020-07-13 11:40] LABS: HEMATOCRIT 38.2 % (35.4-49); HEMOGLOBIN 12.4 GM/dL (11.7-16.9); MCH 24.4 pg (25.7-33.7); MCHC 32.6 g/dl (32.0-35.9); MEAN CELL VOLUME 74.9 fl (80-96); MEAN PLT VOLUME 8.9 fl (7.5-11.1); PLATELET COUNT 222 K/MM3 (134-434); RDW 17.2 % (11.9-15.9); WHITE BLOOD COUNT 8.2 K/mm3 (4.0-10.0)
[2020-07-13 11:47] LABS: PH,URINE 6.5 (5.0-8.0); URINE APPEARANCE CLEAR; URINE BILIRUBIN NEGATIVE (NEGATIVE); URINE COLOR DK YELLOW; URINE GLUCOSE (UA) NEGATIVE (NEGATIVE); URINE KETONE TRACE (NEGATIVE); URINE LEUK ESTERASE NEGATIVE (NEGATIVE); URINE NITRITE NEGATIVE (NEGATIVE); URINE PROTEIN NEGATIVE (NEGATIVE)
[2020-07-13 11:55] LABS: CALCIUM 8.7 mg/dL (8.5-10.1)
[2020-07-13 11:56] LABS: BLOOD UREA NITROGEN 10.4 mg/dL (7-18)
[2020-07-13 11:59] LABS: CREATININE 0.9 mg/dL (0.55-1.3)
[2020-07-13 12:00] LABS: BILIRUBIN,TOTAL 0.5 mg/dL (0.2-1)
[2020-07-13 12:01] LABS: TOT PROT 6.3 g/dl (6.4-8.2)
[2020-07-13] MEDS: COLLOIDAL OATMEAL 1 BAR EACH TP PRN (16:33)
[2020-07-13] MEDS: THIAMINE HCL 100 MG TABLET (FP) PO SCH (21:33)
[2020-07-13] MEDS: DOCUSATE SODIUM 100 MG CAPSULE (FP) PO SCH (21:34)
[2020-07-13] MEDS: SENNOSIDES 8.6MG TABLET (FP) PO SCH (21:34)
[2020-07-13] MEDS: SUVOREXANT 10 MG TABLET PO PRN (21:34)
[2020-07-14] MEDS ORDERED: METHADONE HCL 40 MG DISPERSABLE TABLET ONE (03:07)
[2020-07-14] MEDS ORDERED: METHADONE HCL 10 MG TABLET ONE (03:08)
[2020-07-14] MEDS: METHADONE 80 MG, METHADONE 20 MG PO SCH (06:18)
[2020-07-14] MEDS: metFORMIN HCL 500 MG TABLET (FP) PO SCH ×2 (06:19→16:35)
[2020-07-14] MEDS: NICOTINE 21 MG/24 HOURS TOPICAL PATCH TD SCH (10:24)
[2020-07-14] MEDS: LISINOPRIL 10 MG TABLET PO SCH (10:24)
[2020-07-14] MEDS: PRENATAL VITAMINS W/ FOLIC ACID TABLET (FP) PO SCH (10:24)
[2020-07-14] MEDS: TIOTROPIUM BROMIDE 2.5 MCG (SPIRIVA) RESPIMAT INHALER IH SCH (10:24)
[2020-07-14] MEDS: IBUPROFEN 400 MG TABLET (FP) PO PRN (16:35)
[2020-07-14] MEDS: DOCUSATE SODIUM 100 MG CAPSULE (FP) PO SCH (21:25)
[2020-07-14] MEDS: THIAMINE HCL 100 MG TABLET (FP) PO SCH (21:25)
[2020-07-14] MEDS: SUVOREXANT 10 MG TABLET PO PRN (21:25)
[2020-07-14] MEDS: SENNOSIDES 8.6MG TABLET (FP) PO SCH (21:25)
[2020-07-15] MEDS ORDERED: METHADONE HCL 10 MG TABLET ONE (03:09)
[2020-07-15] MEDS ORDERED: METHADONE HCL 40 MG DISPERSABLE TABLET ONE (03:09)
[2020-07-15] MEDS: METHADONE 80 MG, METHADONE 20 MG PO SCH (06:48)
[2020-07-15] MEDS: metFORMIN HCL 500 MG TABLET (FP) PO SCH ×2 (06:49→16:50)
[2020-07-15] MEDS: PRENATAL VITAMINS W/ FOLIC ACID TABLET (FP) PO SCH (10:09)
[2020-07-15] MEDS: LISINOPRIL 10 MG TABLET PO SCH (10:09)
[2020-07-15] MEDS: NICOTINE 21 MG/24 HOURS TOPICAL PATCH TD SCH (10:09)
[2020-07-15] MEDS: TIOTROPIUM BROMIDE 2.5 MCG (SPIRIVA) RESPIMAT INHALER IH SCH (10:10)
[2020-07-15] MEDS: IBUPROFEN 400 MG TABLET (FP) PO PRN (16:51)
[2020-07-15] MEDS: hydrOXYzine PAMOATE 25 MG CAPSULE (FP) PO PRN (22:06)
[2020-07-15] MEDS: THIAMINE HCL 100 MG TABLET (FP) PO SCH (22:06)
[2020-07-15] MEDS: DOCUSATE SODIUM 100 MG CAPSULE (FP) PO SCH (22:06)
[2020-07-15] MEDS: SENNOSIDES 8.6MG TABLET (FP) PO SCH (22:06)
[2020-07-15] MEDS: SUVOREXANT 10 MG TABLET PO PRN (22:07)
[2020-07-16] MEDS ORDERED: METHADONE HCL 10 MG TABLET ONE (03:05)
[2020-07-16] MEDS ORDERED: METHADONE HCL 40 MG DISPERSABLE TABLET ONE (03:05)
[2020-07-16] MEDS: metFORMIN HCL 500 MG TABLET (FP) PO SCH ×2 (06:09→16:32)
[2020-07-16] MEDS: METHADONE 80 MG, METHADONE 20 MG PO SCH (06:10)
[2020-07-16] MEDS: TIOTROPIUM BROMIDE 2.5 MCG (SPIRIVA) RESPIMAT INHALER IH SCH (10:03)
[2020-07-16] MEDS: NICOTINE 21 MG/24 HOURS TOPICAL PATCH TD SCH (10:03)
[2020-07-16] MEDS: LISINOPRIL 10 MG TABLET PO SCH (10:03)
[2020-07-16] MEDS: PRENATAL VITAMINS W/ FOLIC ACID TABLET (FP) PO SCH (10:03)
[2020-07-16 14:11] LABS: SARS-CoV-2 NAA Not Detected (Not Detected)
[2020-07-16] MEDS: THIAMINE HCL 100 MG TABLET (FP) PO SCH (21:20)
[2020-07-16] MEDS: SENNOSIDES 8.6MG TABLET (FP) PO SCH (21:21)
[2020-07-16] MEDS: hydrOXYzine PAMOATE 25 MG CAPSULE (FP) PO PRN (21:21)
[2020-07-16] MEDS: DOCUSATE SODIUM 100 MG CAPSULE (FP) PO SCH (21:21)
[2020-07-16] MEDS: SUVOREXANT 10 MG TABLET PO PRN (21:22)
[2020-07-17] MEDS ORDERED: METHADONE HCL 40 MG DISPERSABLE TABLET ONE (03:36)
[2020-07-17] MEDS ORDERED: METHADONE HCL 10 MG TABLET ONE (03:36)
[2020-07-17] MEDS: METHADONE 80 MG, METHADONE 20 MG PO SCH (06:14)
[2020-07-17] MEDS: metFORMIN HCL 500 MG TABLET (FP) PO SCH ×2 (06:15→16:54)
[2020-07-17] MEDS: NICOTINE 21 MG/24 HOURS TOPICAL PATCH TD SCH (10:04)
[2020-07-17] MEDS: hydrOXYzine PAMOATE 25 MG CAPSULE (FP) PO PRN (10:04)
[2020-07-17] MEDS: LISINOPRIL 10 MG TABLET PO SCH (10:04)
[2020-07-17] MEDS: PRENATAL VITAMINS W/ FOLIC ACID TABLET (FP) PO SCH (10:04)
[2020-07-17] MEDS: TOLNAFTATE 1% CREAM 15 GM TUBE TP SCH ×2 (10:05→21:17)
[2020-07-17] MEDS: COLLOIDAL OATMEAL 1 BAR EACH TP PRN (10:05)
[2020-07-17] MEDS: TIOTROPIUM BROMIDE 2.5 MCG (SPIRIVA) RESPIMAT INHALER IH SCH (10:07)
[2020-07-17] MEDS: AMMONIUM LACTATE 12% LOTION 225 GM BOTTLE TP PRN (16:55)
[2020-07-17] MEDS: THIAMINE HCL 100 MG TABLET (FP) PO SCH (21:15)
[2020-07-17] MEDS: SENNOSIDES 8.6MG TABLET (FP) PO SCH (21:16)
[2020-07-17] MEDS: SUVOREXANT 10 MG TABLET PO PRN (21:16)
[2020-07-17] MEDS: DOCUSATE SODIUM 100 MG CAPSULE (FP) PO SCH (21:16)
[2020-07-18] MEDS ORDERED: METHADONE HCL 40 MG DISPERSABLE TABLET ONE (03:26)
[2020-07-18] MEDS ORDERED: METHADONE HCL 10 MG TABLET ONE (03:26)
[2020-07-18] MEDS: METHADONE 80 MG, METHADONE 20 MG PO SCH (06:38)
[2020-07-18] MEDS: metFORMIN HCL 500 MG TABLET (FP) PO SCH ×2 (06:40→16:38)
[2020-07-18] MEDS: LISINOPRIL 10 MG TABLET PO SCH (10:08)
[2020-07-18] MEDS: hydrOXYzine PAMOATE 25 MG CAPSULE (FP) PO PRN (10:08)
[2020-07-18] MEDS: NICOTINE 21 MG/24 HOURS TOPICAL PATCH TD SCH (10:08)
[2020-07-18] MEDS: TIOTROPIUM BROMIDE 2.5 MCG (SPIRIVA) RESPIMAT INHALER IH SCH (10:08)
[2020-07-18] MEDS: PRENATAL VITAMINS W/ FOLIC ACID TABLET (FP) PO SCH (10:08)
[2020-07-18] MEDS: TOLNAFTATE 1% CREAM 15 GM TUBE TP SCH ×2 (10:08→21:39)
[2020-07-18] MEDS: DOCUSATE SODIUM 100 MG CAPSULE (FP) PO SCH (21:37)
[2020-07-18] MEDS: SENNOSIDES 8.6MG TABLET (FP) PO SCH (21:37)
[2020-07-18] MEDS: THIAMINE HCL 100 MG TABLET (FP) PO SCH (21:37)
[2020-07-18] MEDS: SUVOREXANT 10 MG TABLET PO PRN (21:38)
[2020-07-19] MEDS ORDERED: METHADONE HCL 10 MG TABLET ONE (03:21)
[2020-07-19] MEDS ORDERED: METHADONE HCL 40 MG DISPERSABLE TABLET ONE (03:21)
[2020-07-19] MEDS: METHADONE 80 MG, METHADONE 20 MG PO SCH (06:07)
[2020-07-19] MEDS: metFORMIN HCL 500 MG TABLET (FP) PO SCH ×2 (06:09→16:34)
[2020-07-19] MEDS: TIOTROPIUM BROMIDE 2.5 MCG (SPIRIVA) RESPIMAT INHALER IH SCH (10:06)
[2020-07-19] MEDS: PRENATAL VITAMINS W/ FOLIC ACID TABLET (FP) PO SCH (10:07)
[2020-07-19] MEDS: LISINOPRIL 10 MG TABLET PO SCH (10:07)
[2020-07-19] MEDS: NICOTINE 21 MG/24 HOURS TOPICAL PATCH TD SCH (10:07)
[2020-07-19] MEDS: TOLNAFTATE 1% CREAM 15 GM TUBE TP SCH ×2 (10:08→21:39)
[2020-07-19] MEDS: DOCUSATE SODIUM 100 MG CAPSULE (FP) PO SCH (21:35)
[2020-07-19] MEDS: THIAMINE HCL 100 MG TABLET (FP) PO SCH (21:35)
[2020-07-19] MEDS: SENNOSIDES 8.6MG TABLET (FP) PO SCH (21:35)
[2020-07-19] MEDS: SUVOREXANT 10 MG TABLET PO PRN (21:36)
[2020-07-20] MEDS ORDERED: METHADONE HCL 10 MG TABLET ONE (06:37)
[2020-07-20] MEDS ORDERED: METHADONE HCL 40 MG DISPERSABLE TABLET ONE (06:37)
[2020-07-20] MEDS: metFORMIN HCL 500 MG TABLET (FP) PO SCH ×2 (06:54→16:50)
[2020-07-20] MEDS: METHADONE 80 MG, METHADONE 20 MG PO SCH (07:37)
[2020-07-20] MEDS: LISINOPRIL 10 MG TABLET PO SCH (10:05)
[2020-07-20] MEDS: PRENATAL VITAMINS W/ FOLIC ACID TABLET (FP) PO SCH (10:06)
[2020-07-20] MEDS: TIOTROPIUM BROMIDE 2.5 MCG (SPIRIVA) RESPIMAT INHALER IH SCH (10:06)
[2020-07-20] MEDS: IBUPROFEN 400 MG TABLET (FP) PO PRN (10:06)
[2020-07-20] MEDS: NICOTINE 21 MG/24 HOURS TOPICAL PATCH TD SCH (10:08)
[2020-07-20] MEDS: TOLNAFTATE 1% CREAM 15 GM TUBE TP SCH ×2 (10:08→22:12)
[2020-07-20] MEDS: THIAMINE HCL 100 MG TABLET (FP) PO SCH (22:09)
[2020-07-20] MEDS: SENNOSIDES 8.6MG TABLET (FP) PO SCH (22:10)
[2020-07-20] MEDS: DOCUSATE SODIUM 100 MG CAPSULE (FP) PO SCH (22:10)
[2020-07-20] MEDS: SUVOREXANT 10 MG TABLET PO PRN (22:12)
[2020-07-21] MEDS ORDERED: METHADONE HCL 40 MG DISPERSABLE TABLET ONE (03:41)
[2020-07-21] MEDS ORDERED: METHADONE HCL 10 MG TABLET ONE (03:41)
[2020-07-21] MEDS: metFORMIN HCL 500 MG TABLET (FP) PO SCH ×2 (06:55→16:33)
[2020-07-21] MEDS: METHADONE 80 MG, METHADONE 20 MG PO SCH (06:55)
[2020-07-21] MEDS: TIOTROPIUM BROMIDE 2.5 MCG (SPIRIVA) RESPIMAT INHALER IH SCH (10:15)
[2020-07-21] MEDS: NICOTINE 21 MG/24 HOURS TOPICAL PATCH TD SCH (10:15)
[2020-07-21] MEDS: LISINOPRIL 10 MG TABLET PO SCH (10:15)
[2020-07-21] MEDS: PRENATAL VITAMINS W/ FOLIC ACID TABLET (FP) PO SCH (10:15)
[2020-07-21] MEDS: TOLNAFTATE 1% CREAM 15 GM TUBE TP SCH ×2 (11:10→21:27)
[2020-07-21] MEDS: IBUPROFEN 400 MG TABLET (FP) PO PRN (16:36)
[2020-07-21] MEDS: COLLOIDAL OATMEAL 1 BAR EACH TP PRN (16:38)
[2020-07-21] MEDS: DOCUSATE SODIUM 100 MG CAPSULE (FP) PO SCH (21:26)
[2020-07-21] MEDS: SENNOSIDES 8.6MG TABLET (FP) PO SCH (21:26)
[2020-07-21] MEDS: THIAMINE HCL 100 MG TABLET (FP) PO SCH (21:26)
[2020-07-21] MEDS: SUVOREXANT 10 MG TABLET PO PRN (21:27)
[2020-07-22] MEDS ORDERED: METHADONE HCL 10 MG TABLET ONE (03:14)
[2020-07-22] MEDS ORDERED: METHADONE HCL 40 MG DISPERSABLE TABLET ONE (03:14)
[2020-07-22] MEDS: METHADONE 80 MG, METHADONE 20 MG PO SCH (06:19)
[2020-07-22] MEDS: metFORMIN HCL 500 MG TABLET (FP) PO SCH ×2 (06:21→16:34)
[2020-07-22] MEDS: PRENATAL VITAMINS W/ FOLIC ACID TABLET (FP) PO SCH (09:42)
[2020-07-22] MEDS: NICOTINE 21 MG/24 HOURS TOPICAL PATCH TD SCH (09:42)
[2020-07-22] MEDS: LISINOPRIL 10 MG TABLET PO SCH (09:42)
[2020-07-22] MEDS: TOLNAFTATE 1% CREAM 15 GM TUBE TP SCH ×2 (09:42→21:43)
[2020-07-22] MEDS: TIOTROPIUM BROMIDE 2.5 MCG (SPIRIVA) RESPIMAT INHALER IH SCH (09:44)
[2020-07-22] MEDS: IBUPROFEN 400 MG TABLET (FP) PO PRN (09:45)
[2020-07-22] MEDS: DOCUSATE SODIUM 100 MG CAPSULE (FP) PO SCH (21:41)
[2020-07-22] MEDS: SENNOSIDES 8.6MG TABLET (FP) PO SCH (21:42)
[2020-07-22] MEDS: THIAMINE HCL 100 MG TABLET (FP) PO SCH (21:42)
[2020-07-22] MEDS: SUVOREXANT 10 MG TABLET PO PRN (21:42)
[2020-07-23] MEDS ORDERED: METHADONE HCL 40 MG DISPERSABLE TABLET ONE (03:13)
[2020-07-23] MEDS ORDERED: METHADONE HCL 10 MG TABLET ONE (03:14)
[2020-07-23] MEDS: METHADONE 80 MG, METHADONE 20 MG PO SCH (06:07)
[2020-07-23] MEDS: metFORMIN HCL 500 MG TABLET (FP) PO SCH ×2 (06:10→16:30)
[2020-07-23] MEDS: LISINOPRIL 10 MG TABLET PO SCH (10:03)
[2020-07-23] MEDS: NICOTINE 21 MG/24 HOURS TOPICAL PATCH TD SCH (10:03)
[2020-07-23] MEDS: TIOTROPIUM BROMIDE 2.5 MCG (SPIRIVA) RESPIMAT INHALER IH SCH (10:03)
[2020-07-23] MEDS: TOLNAFTATE 1% CREAM 15 GM TUBE TP SCH ×2 (10:03→21:37)
[2020-07-23] MEDS: PRENATAL VITAMINS W/ FOLIC ACID TABLET (FP) PO SCH (10:03)
[2020-07-23] MEDS: SENNOSIDES 8.6MG TABLET (FP) PO SCH (21:35)
[2020-07-23] MEDS: THIAMINE HCL 100 MG TABLET (FP) PO SCH (21:35)
[2020-07-23] MEDS: DOCUSATE SODIUM 100 MG CAPSULE (FP) PO SCH (21:35)
[2020-07-23] MEDS: SUVOREXANT 10 MG TABLET PO PRN (21:36)
[2020-07-23] MEDS: IBUPROFEN 400 MG TABLET (FP) PO PRN (21:36)
[2020-07-24] MEDS ORDERED: METHADONE HCL 40 MG DISPERSABLE TABLET ONE (03:12)
[2020-07-24] MEDS ORDERED: METHADONE HCL 10 MG TABLET ONE (03:12)
[2020-07-24] MEDS: METHADONE 80 MG, METHADONE 20 MG PO SCH (06:15)
[2020-07-24] MEDS: metFORMIN HCL 500 MG TABLET (FP) PO SCH ×2 (06:18→17:01)
[2020-07-24] MEDS: NICOTINE 21 MG/24 HOURS TOPICAL PATCH TD SCH (10:10)
[2020-07-24] MEDS: TOLNAFTATE 1% CREAM 15 GM TUBE TP SCH ×2 (10:10→21:37)
[2020-07-24] MEDS: TIOTROPIUM BROMIDE 2.5 MCG (SPIRIVA) RESPIMAT INHALER IH SCH (10:10)
[2020-07-24] MEDS: hydrOXYzine PAMOATE 25 MG CAPSULE (FP) PO PRN (10:10)
[2020-07-24] MEDS: PRENATAL VITAMINS W/ FOLIC ACID TABLET (FP) PO SCH (10:10)
[2020-07-24] MEDS: LISINOPRIL 10 MG TABLET PO SCH (10:10)
[2020-07-24] MEDS: IBUPROFEN 400 MG TABLET (FP) PO PRN (10:11)
[2020-07-24] MEDS: SENNOSIDES 8.6MG TABLET (FP) PO SCH (21:37)
[2020-07-24] MEDS: DOCUSATE SODIUM 100 MG CAPSULE (FP) PO SCH (21:37)
[2020-07-24] MEDS: THIAMINE HCL 100 MG TABLET (FP) PO SCH (21:38)
[2020-07-24] MEDS: SUVOREXANT 10 MG TABLET PO PRN (21:38)
[2020-07-25] MEDS ORDERED: METHADONE HCL 40 MG DISPERSABLE TABLET ONE (03:49)
[2020-07-25] MEDS ORDERED: METHADONE HCL 10 MG TABLET ONE (03:50)
[2020-07-25] MEDS: METHADONE 80 MG, METHADONE 20 MG PO SCH (06:30)
[2020-07-25] MEDS: metFORMIN HCL 500 MG TABLET (FP) PO SCH ×2 (06:30→16:37)
[2020-07-25] MEDS: COLLOIDAL OATMEAL 1 BAR EACH TP PRN (08:44)
[2020-07-25] MEDS: AMMONIUM LACTATE 12% LOTION 225 GM BOTTLE TP PRN (08:45)
[2020-07-25] MEDS: NICOTINE 21 MG/24 HOURS TOPICAL PATCH TD SCH (10:16)
[2020-07-25] MEDS: LISINOPRIL 10 MG TABLET PO SCH (10:16)
[2020-07-25] MEDS: PRENATAL VITAMINS W/ FOLIC ACID TABLET (FP) PO SCH (10:16)
[2020-07-25] MEDS: IBUPROFEN 400 MG TABLET (FP) PO PRN (10:17)
[2020-07-25] MEDS: TIOTROPIUM BROMIDE 2.5 MCG (SPIRIVA) RESPIMAT INHALER IH SCH (10:17)
[2020-07-25] MEDS: TOLNAFTATE 1% CREAM 15 GM TUBE TP SCH ×2 (10:41→21:52)
[2020-07-25] MEDS ORDERED: PT OWN MED DRAWER 7, Y5N ONE (18:39)
[2020-07-25] MEDS: THIAMINE HCL 100 MG TABLET (FP) PO SCH (21:50)
[2020-07-25] MEDS: SENNOSIDES 8.6MG TABLET (FP) PO SCH (21:50)
[2020-07-25] MEDS: DOCUSATE SODIUM 100 MG CAPSULE (FP) PO SCH (21:50)
[2020-07-25] MEDS ORDERED: SUVOREXANT 10 MG TABLET PO PRN (22:00)
[2020-07-26] MEDS ORDERED: METHADONE HCL 40 MG DISPERSABLE TABLET ONE (05:54)
[2020-07-26] MEDS ORDERED: METHADONE HCL 10 MG TABLET ONE (05:54)
[2020-07-26] MEDS ORDERED: METHADONE 80 MG, METHADONE 20 MG PO SCH (06:00)
[2020-07-26] MEDS: metFORMIN HCL 500 MG TABLET (FP) PO SCH (07:04)
[2020-07-26] MEDS: COLLOIDAL OATMEAL 1 BAR EACH TP PRN (07:45)
[2020-07-26 07:57] VITALS: BP 121/62; PULSE 75; TEMP 97.9
[2020-07-26] MEDS ORDERED: COVID-19 VAC,AD26(JANSSEN)/PF 0.5 ML IM ONE (09:00)
[2020-07-26] MEDS: NICOTINE 21 MG/24 HOURS TOPICAL PATCH TD SCH (09:04)
[2020-07-26] MEDS: LISINOPRIL 10 MG TABLET PO SCH (09:04)
[2020-07-26] MEDS: TIOTROPIUM BROMIDE 2.5 MCG (SPIRIVA) RESPIMAT INHALER IH SCH (09:04)
[2020-07-26] MEDS: PRENATAL VITAMINS W/ FOLIC ACID TABLET (FP) PO SCH (09:04)
[2020-07-26] MEDS: TOLNAFTATE 1% CREAM 15 GM TUBE TP SCH (09:04)
[2020-07-26] MEDS: IBUPROFEN 400 MG TABLET (FP) PO PRN (09:06)
[2020-07-26] MEDS ORDERED: MASKS NR ONE (09:06)
== END 2020-07-26 09:55 | disposition home or self-care (01) | DRG 772 ==
LOC: YASAS 16:01 → Y3W 23:46
PROVIDERS: ADMIT Allergy & Immunology; ATTEND Allergy & Immunology
PROC: HZ42ZZZ Group Counseling for Substance Abuse Treatment, Cognitive-Behavioral (ICD-10-PCS; principal; 2020-07-12)
DX: F11.20 Opioid dependence, uncomplicated (principal); F10.20 Alcohol dependence, uncomplicated; F14.20 Cocaine dependence, uncomplicated; F12.20 Cannabis dependence, uncomplicated; F17.210 Nicotine dependence, cigarettes, uncomplicated; F19.282 Other psychoactive substance dependence with psychoactive substance-induced sleep disorder; F19.24 Other psychoactive substance dependence with psychoactive substance-induced mood disorder; F31.9 Bipolar disorder, unspecified; F39 Unspecified mood [affective] disorder; I10 Essential (primary) hypertension; J45.20 Mild intermittent asthma, uncomplicated; E11.9 Type 2 diabetes mellitus without complications; Z79.84 Long term (current) use of oral hypoglycemic drugs; R76.11 Nonspecific reaction to tuberculin skin test without active tuberculosis; E66.01 Morbid (severe) obesity due to excess calories; Z68.42 Body mass index [BMI] 45.0-49.9, adult; Z98.84 Bariatric surgery status; Z56.0 Unemployment, unspecified; Z59.0 Homelessness
CPT/HCPCS: 0031A; 36415; 71046-TC-FY; 80053; 81003; 82962; 85027; 86780; 91303; C9803; U0003; U0005

== ENCOUNTER 2021-05-07 13:10 | Inpatient (IN) | payer OTHER ==
[2021-05-07] MEDS ORDERED: MAGNESIUM HYDROX 2400MG/30ML ORAL SUSPENSION 30 ML CUP PO PRN (14:56)
[2021-05-07] MEDS ORDERED: MAG HYDROX/AL HYDROX/SIMETH 30 ML UNIT-DOSE CUP PO PRN (14:56)
[2021-05-07] MEDS ORDERED: METHOCARBAMOL 500 MG TABLET PO PRN (14:56)
[2021-05-07] MEDS ORDERED: MAGNESIUM CITRATE 300 ML BOTTLE PO PRN (14:56)
[2021-05-07] MEDS ORDERED: ONDANSETRON *ODT* 4 MG TABLET SL PRN (14:56)
[2021-05-07] MEDS ORDERED: LOPERAMIDE HCL 2 MG CAPSULE PO PRN (14:56)
[2021-05-07] MEDS ORDERED: ACETAMINOPHEN 325 MG TABLET (FP) PO PRN ×2 (14:56)
[2021-05-07] MEDS ORDERED: IBUPROFEN 400 MG TABLET (FP) PO PRN (14:56)
[2021-05-07] MEDS ORDERED: BISMUTH SUBSALICYLATE 524 MG/30 ML PO PRN (14:56)
[2021-05-07] MEDS ORDERED: MENTHOL/PHENOL 1 EACH UD MM PRN (14:56)
[2021-05-07] MEDS ORDERED: LORazepam 1 MG TABLET PO PRN (14:56)
[2021-05-07] MEDS ORDERED: NICOTINE 10 MG CARTRIDGE (INHALER) IH PRN (14:56)
[2021-05-07 15:31] VITALS: BMI 47.2
[2021-05-07] MEDS ORDERED: DEXTROSE 4 GM TAB.CHEW PO PRN (16:06)
[2021-05-07] MEDS: hydrOXYzine PAMOATE 25 MG CAPSULE (FP) PO SCH ×2 (18:15→22:16)
[2021-05-07] MEDS: INSULIN SLIDING SCALE (NOVOLOG) 1 VIAL SQ SCH ×2 (18:18→22:20)
[2021-05-07] MEDS ORDERED: THIAMINE HCL 100 MG TABLET (FP) PO SCH (22:00)
[2021-05-07] MEDS ORDERED: MELATONIN 5 MG TABLETS PO SCH (22:00)
[2021-05-07] MEDS: LORazepam 2 MG TABLET PO SCH (22:16)
[2021-05-08] MEDS: hydrOXYzine PAMOATE 25 MG CAPSULE (FP) PO SCH ×4 (06:14→17:58)
[2021-05-08] MEDS: LORazepam 2 MG TABLET PO SCH ×3 (06:14→17:58)
[2021-05-08] MEDS: INSULIN SLIDING SCALE (NOVOLOG) 1 VIAL SQ SCH ×3 (06:17→17:57)
[2021-05-08 10:00] LABS: HEMATOCRIT 34.9 % (35.4-49); HEMOGLOBIN 11.6 GM/dL (11.7-16.9); MCH 25.6 pg (25.7-33.7); MCHC 33.2 g/dl (32.0-35.9); MEAN CELL VOLUME 77.2 fl (80-96); MEAN PLT VOLUME 8.4 fl (7.5-11.1); PLATELET COUNT 188 10^3/uL (134-434); RBC 4.52 M/mm3 (4.00-5.60); RDW 16.7 % (11.9-15.9); WHITE BLOOD COUNT 7.1 K/mm3 (4.0-10.0)
[2021-05-08] MEDS ORDERED: PRENATAL VITAMINS W/ FOLIC ACID TABLET (FP) PO SCH (10:00)
[2021-05-08 10:06] LABS: CALCIUM 8.3 mg/dL (8.5-10.1)
[2021-05-08 10:07] LABS: ALBUMIN 2.8 g/dl (3.4-5.0); BLOOD UREA NITROGEN 13.8 mg/dL (7-18)
[2021-05-08 10:10] LABS: CREATININE 1.1 mg/dL (0.55-1.3)
[2021-05-08 10:12] LABS: BILIRUBIN,TOTAL 0.3 mg/dL (0.2-1)
[2021-05-08] MEDS ORDERED: LISINOPRIL 10 MG TABLET PO SCH (11:45)
[2021-05-08] MEDS ORDERED: methaDONE HCL 10 MG TABLET PO ONE ×2 (12:29→18:05)
[2021-05-08] MEDS ORDERED: methaDONE 80 MG, methaDONE 20 MG PO ONE (12:29)
[2021-05-08] MEDS ORDERED: methaDONE HCL 40 MG DISPERSABLE TABLET ONE (12:51)
[2021-05-08] MEDS ORDERED: methaDONE HCL 10 MG TABLET ONE (12:51)
[2021-05-08] MEDS ORDERED: FLU VACC QS2021-22(6MOS UP)/PF 60 MCG/0.5 ML SYRINGE IM ONE (13:00)
[2021-05-08 13:03] LABS: HIV INTERPRETATION NEGATIVE (NEGATIVE)
[2021-05-08] MEDS ORDERED: metFORMIN HCL 500 MG TABLET (FP) PO SCH (16:30)
[2021-05-08 16:50] VITALS: BP 137/70; PULSE 84; TEMP 98.2
[2021-05-09] MEDS ORDERED: LORazepam 1 MG TABLET PO SCH (05:00)
[2021-05-09] MEDS ORDERED: methaDONE HCL 10 MG TABLET PO SCH (06:00)
[2021-05-09] MEDS ORDERED: methaDONE 80 MG, methaDONE 20 MG PO SCH (06:00)
[2021-05-09] MEDS ORDERED: TIOTROPIUM BROMIDE 2.5 MCG (SPIRIVA) RESPIMAT INHALER IH SCH (10:00)
[2021-05-09 10:09] LABS: SARS-CoV-2 NAA Not Detected (Not Detected)
[2021-05-10] MEDS ORDERED: LORazepam 0.5 MG TABLET PO PRN
[2021-05-10] MEDS ORDERED: LORazepam 0.5 MG TABLET PO SCH (05:00)
[2021-05-11] MEDS ORDERED: LORazepam 0.5 MG TABLET PO ONE (05:00)
== END 2021-05-08 19:04 | disposition left against medical advice (07) | DRG 770 ==
LOC: YASAS 13:10 → Y3N 17:37
PROVIDERS: ADMIT Allergy & Immunology; ATTEND Allergy & Immunology
PROC: HZ2ZZZZ Detoxification Services for Substance Abuse Treatment (ICD-10-PCS; principal; 2021-05-07)
DX: F11.23 Opioid dependence with withdrawal (principal); F10.230 Alcohol dependence with withdrawal, uncomplicated; F14.20 Cocaine dependence, uncomplicated; F12.20 Cannabis dependence, uncomplicated; F17.210 Nicotine dependence, cigarettes, uncomplicated; F41.9 Anxiety disorder, unspecified; F32.A Depression, unspecified; F43.10 Post-traumatic stress disorder, unspecified; I10 Essential (primary) hypertension; E11.9 Type 2 diabetes mellitus without complications; J45.20 Mild intermittent asthma, uncomplicated; M19.90 Unspecified osteoarthritis, unspecified site; Z79.84 Long term (current) use of oral hypoglycemic drugs; Z59.01 Sheltered homelessness; Z91.013 Allergy to seafood
CPT/HCPCS: 36415; 80053; 82962; 85027; 86780; 87389; 87811; C9803; U0003; U0005

== ENCOUNTER 2021-05-14 11:44 | Inpatient (IN) | payer OTHER ==
[2021-05-14] MEDS ORDERED: MAGNESIUM CITRATE 300 ML BOTTLE PO PRN (13:34)
[2021-05-14] MEDS ORDERED: MAGNESIUM HYDROX 2400MG/30ML ORAL SUSPENSION 30 ML CUP PO PRN (13:34)
[2021-05-14] MEDS ORDERED: chlordiazePOXIDE HCL 25 MG CAPSULE PO PRN (13:34)
[2021-05-14] MEDS ORDERED: ACETAMINOPHEN 325 MG TABLET (FP) PO PRN (13:34)
[2021-05-14] MEDS ORDERED: LOPERAMIDE HCL 2 MG CAPSULE PO PRN (13:34)
[2021-05-14] MEDS ORDERED: MAG HYDROX/AL HYDROX/SIMETH 30 ML UNIT-DOSE CUP PO PRN (13:34)
[2021-05-14] MEDS ORDERED: BISMUTH SUBSALICYLATE 262 MG/15 ML BTL PO PRN (13:34)
[2021-05-14] MEDS ORDERED: MENTHOL/PHENOL 1 EACH UD MM PRN (13:34)
[2021-05-14] MEDS ORDERED: NALOXONE (NARCAN) HCL 4 MG/0.1 ML SPRAY NS PRN (13:34)
[2021-05-14] MEDS ORDERED: IBUPROFEN 400 MG TABLET (FP) PO PRN (13:34)
[2021-05-14] MEDS ORDERED: ONDANSETRON *ODT* 4 MG TABLET SL PRN (13:34)
[2021-05-14 14:04] VITALS: BMI 48.4
[2021-05-14] MEDS ORDERED: COLLOIDAL OATMEAL 1 BAR EACH TP PRN (15:02)
[2021-05-14] MEDS: hydrOXYzine PAMOATE 25 MG CAPSULE (FP) PO SCH ×3 (15:22→22:23)
[2021-05-14] MEDS: chlordiazePOXIDE HCL 25 MG CAPSULE PO SCH ×2 (18:19→22:23)
[2021-05-14] MEDS: metFORMIN HCL 500 MG TABLET (FP) PO SCH (18:20)
[2021-05-14] MEDS: INSULIN SLIDING SCALE (NOVOLOG) 1 VIAL SQ SCH (18:21)
[2021-05-14] MEDS: MELATONIN 5 MG TABLETS PO SCH (22:22)
[2021-05-14] MEDS: THIAMINE HCL 100 MG TABLET (FP) PO SCH (22:22)
[2021-05-14] MEDS: DOCUSATE SODIUM 100 MG CAPSULE (FP) PO SCH (22:23)
[2021-05-14] MEDS: METHOCARBAMOL 500 MG TABLET PO PRN (22:26)
[2021-05-14] MEDS: SENNOSIDES 8.6MG TABLET (FP) PO SCH (23:03)
[2021-05-15] MEDS: chlordiazePOXIDE HCL 25 MG CAPSULE PO SCH ×4 (06:57→23:04)
[2021-05-15] MEDS: metFORMIN HCL 500 MG TABLET (FP) PO SCH ×2 (06:57→17:30)
[2021-05-15] MEDS: hydrOXYzine PAMOATE 25 MG CAPSULE (FP) PO SCH ×5 (06:57→23:04)
[2021-05-15] MEDS: INSULIN SLIDING SCALE (NOVOLOG) 1 VIAL SQ SCH ×2 (07:02→17:02)
[2021-05-15] MEDS ORDERED: INSULIN SLIDING SCALE (NOVOLOG) 1 VIAL SQ ONE (07:11)
[2021-05-15] MEDS ORDERED: methaDONE HCL 10 MG TABLET PO SCH (07:30)
[2021-05-15] MEDS ORDERED: methaDONE HCL 40 MG DISPERSABLE TABLET ONE (07:55)
[2021-05-15] MEDS ORDERED: methaDONE HCL 10 MG TABLET ONE (07:55)
[2021-05-15] MEDS: methaDONE 80 MG, methaDONE 20 MG PO SCH (08:02)
[2021-05-15] MEDS: LISINOPRIL 10 MG TABLET PO SCH (10:21)
[2021-05-15] MEDS: METHOCARBAMOL 500 MG TABLET PO PRN ×2 (10:21→17:32)
[2021-05-15] MEDS: PRENATAL VITAMINS W/ FOLIC ACID TABLET (FP) PO SCH (10:21)
[2021-05-15] MEDS: TIOTROPIUM BROMIDE 2.5 MCG (SPIRIVA) RESPIMAT INHALER IH SCH (10:35)
[2021-05-15 10:44] LABS: ALBUMIN 2.7 g/dl (3.4-5.0); BLOOD UREA NITROGEN 10.4 mg/dL (7-18); CALCIUM 8.1 mg/dL (8.5-10.1)
[2021-05-15 10:47] LABS: CREATININE 0.9 mg/dL (0.55-1.3)
[2021-05-15 10:48] LABS: TOT PROT 5.8 g/dl (6.4-8.2)
[2021-05-15 10:49] LABS: BILIRUBIN,TOTAL 0.3 mg/dL (0.2-1)
[2021-05-15 10:51] LABS: HEMATOCRIT 35.5 % (35.4-49); HEMOGLOBIN 11.4 GM/dL (11.7-16.9); MCH 24.6 pg (25.7-33.7); MEAN PLT VOLUME 8.9 fl (7.5-11.1); PLATELET COUNT 180 10^3/uL (134-434); RBC 4.61 M/mm3 (4.00-5.60); RDW 16.8 % (11.9-15.9); WHITE BLOOD COUNT 6.5 K/mm3 (4.0-10.0)
[2021-05-15] MEDS: MELATONIN 5 MG TABLETS PO SCH (23:04)
[2021-05-15] MEDS: THIAMINE HCL 100 MG TABLET (FP) PO SCH (23:04)
[2021-05-15] MEDS: DOCUSATE SODIUM 100 MG CAPSULE (FP) PO SCH (23:04)
[2021-05-15] MEDS: SENNOSIDES 8.6MG TABLET (FP) PO SCH (23:04)
[2021-05-16] MEDS: METHOCARBAMOL 500 MG TABLET PO PRN ×2 (02:27→13:26)
[2021-05-16] MEDS ORDERED: methaDONE HCL 10 MG TABLET ONE (03:35)
[2021-05-16] MEDS ORDERED: methaDONE HCL 40 MG DISPERSABLE TABLET ONE (03:35)
[2021-05-16 06:08] LABS: SARS-CoV-2 NAA Not Detected (Not Detected)
[2021-05-16] MEDS: methaDONE 80 MG, methaDONE 20 MG PO SCH (06:42)
[2021-05-16] MEDS: chlordiazePOXIDE HCL 25 MG CAPSULE PO SCH ×4 (06:42→23:17)
[2021-05-16] MEDS: metFORMIN HCL 500 MG TABLET (FP) PO SCH ×2 (06:42→18:47)
[2021-05-16] MEDS: hydrOXYzine PAMOATE 25 MG CAPSULE (FP) PO SCH ×5 (06:43→23:17)
[2021-05-16] MEDS: ACETAMINOPHEN 325 MG TABLET (FP) PO PRN (06:43)
[2021-05-16] MEDS: INSULIN SLIDING SCALE (NOVOLOG) 1 VIAL SQ SCH ×2 (06:43→18:49)
[2021-05-16] MEDS: NICOTINE 10 MG CARTRIDGE (INHALER) IH PRN (06:46)
[2021-05-16] MEDS: LISINOPRIL 10 MG TABLET PO SCH (10:08)
[2021-05-16] MEDS: PRENATAL VITAMINS W/ FOLIC ACID TABLET (FP) PO SCH (10:08)
[2021-05-16] MEDS: MELATONIN 5 MG TABLETS PO SCH (23:17)
[2021-05-16] MEDS: THIAMINE HCL 100 MG TABLET (FP) PO SCH (23:17)
[2021-05-16] MEDS: SENNOSIDES 8.6MG TABLET (FP) PO SCH (23:17)
[2021-05-16] MEDS: DOCUSATE SODIUM 100 MG CAPSULE (FP) PO SCH (23:17)
[2021-05-17] MEDS ORDERED: chlordiazePOXIDE HCL 10 MG CAPSULE PO PRN
[2021-05-17] MEDS ORDERED: methaDONE HCL 40 MG DISPERSABLE TABLET ONE ×2 (03:48→04:53)
[2021-05-17] MEDS ORDERED: methaDONE HCL 10 MG TABLET ONE ×2 (03:48→04:53)
[2021-05-17] MEDS: ACETAMINOPHEN 325 MG TABLET (FP) PO PRN ×3 (04:49→22:35)
[2021-05-17] MEDS: METHOCARBAMOL 500 MG TABLET PO PRN ×3 (04:49→22:34)
[2021-05-17] MEDS: methaDONE 80 MG, methaDONE 20 MG PO SCH (06:58)
[2021-05-17] MEDS: hydrOXYzine PAMOATE 25 MG CAPSULE (FP) PO SCH ×5 (06:58→22:33)
[2021-05-17] MEDS: metFORMIN HCL 500 MG TABLET (FP) PO SCH ×2 (06:59→18:34)
[2021-05-17] MEDS: chlordiazePOXIDE HCL 10 MG CAPSULE PO SCH ×4 (06:59→22:30)
[2021-05-17] MEDS: INSULIN SLIDING SCALE (NOVOLOG) 1 VIAL SQ SCH ×2 (08:57→18:34)
[2021-05-17] MEDS: TIOTROPIUM BROMIDE 2.5 MCG (SPIRIVA) RESPIMAT INHALER IH SCH (11:02)
[2021-05-17] MEDS: PRENATAL VITAMINS W/ FOLIC ACID TABLET (FP) PO SCH (11:03)
[2021-05-17] MEDS: LISINOPRIL 10 MG TABLET PO SCH (11:08)
[2021-05-17] MEDS: NICOTINE 10 MG CARTRIDGE (INHALER) IH PRN (11:09)
[2021-05-17] MEDS: DOCUSATE SODIUM 100 MG CAPSULE (FP) PO SCH (22:31)
[2021-05-17] MEDS: THIAMINE HCL 100 MG TABLET (FP) PO SCH (22:31)
[2021-05-17] MEDS: MELATONIN 5 MG TABLETS PO SCH (22:31)
[2021-05-17] MEDS: SENNOSIDES 8.6MG TABLET (FP) PO SCH (22:32)
[2021-05-18] MEDS: TIOTROPIUM BROMIDE 2.5 MCG (SPIRIVA) RESPIMAT INHALER IH SCH ×2 (02:41→09:50)
[2021-05-18] MEDS ORDERED: INSULIN SLIDING SCALE (NOVOLOG) 1 VIAL SQ ONE (03:39)
[2021-05-18] MEDS ORDERED: methaDONE HCL 10 MG TABLET ONE (05:52)
[2021-05-18] MEDS ORDERED: methaDONE HCL 40 MG DISPERSABLE TABLET ONE (05:52)
[2021-05-18] MEDS: methaDONE 80 MG, methaDONE 20 MG PO SCH (05:52)
[2021-05-18] MEDS: hydrOXYzine PAMOATE 25 MG CAPSULE (FP) PO SCH ×5 (05:53→22:32)
[2021-05-18] MEDS: chlordiazePOXIDE HCL 10 MG CAPSULE PO SCH ×2 (05:53→18:01)
[2021-05-18] MEDS: INSULIN SLIDING SCALE (NOVOLOG) 1 VIAL SQ SCH ×2 (07:17→18:11)
[2021-05-18] MEDS: metFORMIN HCL 500 MG TABLET (FP) PO SCH ×2 (07:17→18:10)
[2021-05-18] MEDS: PRENATAL VITAMINS W/ FOLIC ACID TABLET (FP) PO SCH (09:50)
[2021-05-18] MEDS: LISINOPRIL 10 MG TABLET PO SCH (09:50)
[2021-05-18] MEDS: METHOCARBAMOL 500 MG TABLET PO PRN ×2 (09:51→22:34)
[2021-05-18] MEDS: SENNOSIDES 8.6MG TABLET (FP) PO SCH (22:32)
[2021-05-18] MEDS: DOCUSATE SODIUM 100 MG CAPSULE (FP) PO SCH (22:32)
[2021-05-18] MEDS: ACETAMINOPHEN 325 MG TABLET (FP) PO PRN (22:33)
[2021-05-18] MEDS: MELATONIN 5 MG TABLETS PO SCH (22:33)
[2021-05-18] MEDS: THIAMINE HCL 100 MG TABLET (FP) PO SCH (22:34)
[2021-05-19] MEDS ORDERED: methaDONE HCL 10 MG TABLET ONE (04:45)
[2021-05-19] MEDS ORDERED: methaDONE HCL 40 MG DISPERSABLE TABLET ONE (04:46)
[2021-05-19] MEDS ORDERED: chlordiazePOXIDE HCL 10 MG CAPSULE PO ONE (05:00)
[2021-05-19] MEDS: hydrOXYzine PAMOATE 25 MG CAPSULE (FP) PO SCH ×5 (06:58→22:26)
[2021-05-19] MEDS: metFORMIN HCL 500 MG TABLET (FP) PO SCH ×2 (06:58→17:47)
[2021-05-19] MEDS: methaDONE 80 MG, methaDONE 20 MG PO SCH (06:59)
[2021-05-19] MEDS: INSULIN SLIDING SCALE (NOVOLOG) 1 VIAL SQ SCH ×2 (07:03→17:48)
[2021-05-19] MEDS: PRENATAL VITAMINS W/ FOLIC ACID TABLET (FP) PO SCH (10:44)
[2021-05-19] MEDS: TIOTROPIUM BROMIDE 2.5 MCG (SPIRIVA) RESPIMAT INHALER IH SCH (10:44)
[2021-05-19] MEDS: LISINOPRIL 10 MG TABLET PO SCH (10:44)
[2021-05-19] MEDS: SENNOSIDES 8.6MG TABLET (FP) PO SCH (22:26)
[2021-05-19] MEDS: MELATONIN 5 MG TABLETS PO SCH (22:26)
[2021-05-19] MEDS: DOCUSATE SODIUM 100 MG CAPSULE (FP) PO SCH (22:26)
[2021-05-19] MEDS: THIAMINE HCL 100 MG TABLET (FP) PO SCH (22:27)
[2021-05-20] MEDS ORDERED: methaDONE HCL 40 MG DISPERSABLE TABLET ONE (04:49)
[2021-05-20] MEDS ORDERED: methaDONE HCL 10 MG TABLET ONE (04:49)
[2021-05-20] MEDS: methaDONE 80 MG, methaDONE 20 MG PO SCH (05:56)
[2021-05-20] MEDS: hydrOXYzine PAMOATE 25 MG CAPSULE (FP) PO SCH ×2 (05:56→10:36)
[2021-05-20] MEDS: metFORMIN HCL 500 MG TABLET (FP) PO SCH (07:52)
[2021-05-20] MEDS: INSULIN SLIDING SCALE (NOVOLOG) 1 VIAL SQ SCH (07:53)
[2021-05-20 10:00] VITALS: BP 123/76; PULSE 82; TEMP 98.1
[2021-05-20] MEDS: TIOTROPIUM BROMIDE 2.5 MCG (SPIRIVA) RESPIMAT INHALER IH SCH (10:36)
[2021-05-20] MEDS: LISINOPRIL 10 MG TABLET PO SCH (10:36)
[2021-05-20] MEDS: PRENATAL VITAMINS W/ FOLIC ACID TABLET (FP) PO SCH (10:36)
== END 2021-05-20 10:33 | disposition home or self-care (01) | DRG 773 ==
LOC: YASAS 11:44 → Y3N 14:27
PROVIDERS: ADMIT Allergy & Immunology; ATTEND Allergy & Immunology
PROC: HZ2ZZZZ Detoxification Services for Substance Abuse Treatment (ICD-10-PCS; principal; 2021-05-14)
DX: F10.230 Alcohol dependence with withdrawal, uncomplicated (principal); F11.20 Opioid dependence, uncomplicated; F14.20 Cocaine dependence, uncomplicated; F12.20 Cannabis dependence, uncomplicated; F17.210 Nicotine dependence, cigarettes, uncomplicated; F19.282 Other psychoactive substance dependence with psychoactive substance-induced sleep disorder; F19.24 Other psychoactive substance dependence with psychoactive substance-induced mood disorder; F39 Unspecified mood [affective] disorder; F41.9 Anxiety disorder, unspecified; G47.00 Insomnia, unspecified; I10 Essential (primary) hypertension; J45.20 Mild intermittent asthma, uncomplicated; E11.9 Type 2 diabetes mellitus without complications; Z79.84 Long term (current) use of oral hypoglycemic drugs; M19.90 Unspecified osteoarthritis, unspecified site; E66.01 Morbid (severe) obesity due to excess calories; Z68.42 Body mass index [BMI] 45.0-49.9, adult; Z86.11 Personal history of tuberculosis; Z91.013 Allergy to seafood; Z59.00 Homelessness unspecified
CPT/HCPCS: 36415; 80053; 82962; 85027; 86780; C9803; U0003; U0005

== ENCOUNTER 2022-03-01 12:39 | Inpatient (IN) | payer OTHER ==
[2022-03-01 14:49] VITALS: BMI 44.1
[2022-03-01] MEDS ORDERED: ACETAMINOPHEN 325 MG TABLET (FP) PO PRN (16:58)
[2022-03-01] MEDS ORDERED: BISMUTH SUBSALICYLATE 524 MG/30 ML PO PRN (16:58)
[2022-03-01] MEDS ORDERED: LOPERAMIDE HCL 2 MG CAPSULE PO PRN (16:58)
[2022-03-01] MEDS ORDERED: NICOTINE 10 MG CARTRIDGE (INHALER) IH PRN (16:58)
[2022-03-01] MEDS ORDERED: ONDANSETRON *ODT* 4 MG TABLET SL PRN (16:58)
[2022-03-01] MEDS ORDERED: BENZOCAINE/MENTHOL (CHLORASEPTIC ) LOZENGE MM PRN (16:58)
[2022-03-01] MEDS ORDERED: DICYCLOMINE HCL 10 MG CAPSULE PO PRN (16:58)
[2022-03-01] MEDS ORDERED: MAG HYDROX/AL HYDROX/SIMETH 30 ML UNIT-DOSE CUP PO PRN (16:58)
[2022-03-01] MEDS ORDERED: POLYETHYLENE GLYCOL (HEALTHYLAX) 3350 17 GM PACKET PO PRN (16:58)
[2022-03-01] MEDS ORDERED: diazePAM 5 MG TABLET PO PRN (16:58)
[2022-03-01] MEDS ORDERED: IBUPROFEN 400 MG TABLET (FP) PO PRN (16:58)
[2022-03-01] MEDS ORDERED: MAGNESIUM HYDROX 2400MG/30ML ORAL SUSPENSION 30 ML CUP PO PRN (16:58)
[2022-03-01] MEDS ORDERED: NALOXONE HCL (KLOXXADO) 8 MG SPRAY NS PRN (16:58)
[2022-03-01] MEDS: diazePAM 5 MG TABLET PO SCH ×2 (18:47→22:01)
[2022-03-01] MEDS: THIAMINE HCL 100 MG TABLET (FP) PO SCH (22:01)
[2022-03-01] MEDS: MELATONIN 5 MG TABLETS PO SCH (22:02)
[2022-03-01] MEDS: METHOCARBAMOL 500 MG TABLET PO PRN (22:03)
[2022-03-02] MEDS: diazePAM 5 MG TABLET PO SCH ×4 (05:52→22:39)
[2022-03-02] MEDS: methaDONE HCL 40 MG DISPERSABLE TABLET PO SCH (05:54)
[2022-03-02] MEDS: IBUPROFEN 600 MG TABLET (FP) PO PRN ×2 (05:59→17:15)
[2022-03-02 09:45] LABS: ALBUMIN 2.8 g/dl (3.4-5.0); BLOOD UREA NITROGEN 11.5 mg/dL (7-18); CALCIUM 8.7 mg/dL (8.5-10.1)
[2022-03-02 09:48] LABS: CREATININE 0.8 mg/dL (0.55-1.3)
[2022-03-02 09:50] LABS: BILIRUBIN,TOTAL 0.5 mg/dL (0.2-1); TOT PROT 5.9 g/dl (6.4-8.2)
[2022-03-02 09:57] LABS: HEMATOCRIT 37.7 % (35.4-49); HEMOGLOBIN 11.9 GM/dL (11.7-16.9); MCH 23.6 pg (25.7-33.7); MCHC 31.5 g/dl (32.0-35.9); MEAN CELL VOLUME 74.9 fl (80-96); MEAN PLT VOLUME 8.4 fl (7.5-11.1); PLATELET COUNT 179 10^3/uL (134-434); RBC 5.03 M/mm3 (4.00-5.60); RDW 15.5 % (11.9-15.9); WHITE BLOOD COUNT 5.5 K/mm3 (4.0-10.0)
[2022-03-02] MEDS: PRENATAL VITAMINS W/ FOLIC ACID TABLET (FP) PO SCH (10:44)
[2022-03-02] MEDS: NICOTINE 14 MG/24 HOURS TOPICAL PATCH TD SCH (10:44)
[2022-03-02] MEDS: LISINOPRIL 10 MG TABLET PO SCH (11:09)
[2022-03-02] MEDS: THIAMINE HCL 100 MG TABLET (FP) PO SCH (22:39)
[2022-03-02] MEDS: traZODone HCL 50 MG TABLET (FP) PO SCH (22:39)
[2022-03-02] MEDS: MELATONIN 5 MG TABLETS PO SCH (22:39)
[2022-03-03] MEDS: methaDONE HCL 40 MG DISPERSABLE TABLET PO SCH (05:52)
[2022-03-03] MEDS: diazePAM 5 MG TABLET PO SCH ×3 (05:55→23:02)
[2022-03-03] MEDS ORDERED: COLLOIDAL OATMEAL 1 BAR EACH TP PRN (10:39)
[2022-03-03] MEDS: LISINOPRIL 10 MG TABLET PO SCH (10:47)
[2022-03-03] MEDS: PRENATAL VITAMINS W/ FOLIC ACID TABLET (FP) PO SCH (10:47)
[2022-03-03] MEDS: NICOTINE 14 MG/24 HOURS TOPICAL PATCH TD SCH (10:47)
[2022-03-03] MEDS: IBUPROFEN 600 MG TABLET (FP) PO PRN (14:51)
[2022-03-03] MEDS: THIAMINE HCL 100 MG TABLET (FP) PO SCH (23:02)
[2022-03-03] MEDS: traZODone HCL 50 MG TABLET (FP) PO SCH (23:02)
[2022-03-03] MEDS: MELATONIN 5 MG TABLETS PO SCH (23:03)
[2022-03-04] MEDS: methaDONE HCL 40 MG DISPERSABLE TABLET PO SCH (06:01)
[2022-03-04] MEDS: diazePAM 5 MG TABLET PO SCH ×2 (06:03→18:40)
[2022-03-04] MEDS: ACETAMINOPHEN 325 MG TABLET (FP) PO PRN ×2 (06:05→11:19)
[2022-03-04] MEDS: PRENATAL VITAMINS W/ FOLIC ACID TABLET (FP) PO SCH (10:53)
[2022-03-04] MEDS: LISINOPRIL 10 MG TABLET PO SCH (10:53)
[2022-03-04] MEDS: NICOTINE 14 MG/24 HOURS TOPICAL PATCH TD SCH (10:54)
[2022-03-04] MEDS: THIAMINE HCL 100 MG TABLET (FP) PO SCH (22:37)
[2022-03-04] MEDS: traZODone HCL 50 MG TABLET (FP) PO SCH (22:37)
[2022-03-04] MEDS: MELATONIN 5 MG TABLETS PO SCH (23:47)
[2022-03-05] MEDS ORDERED: diazePAM 5 MG TABLET PO ONE (06:00)
[2022-03-05] MEDS: methaDONE HCL 40 MG DISPERSABLE TABLET PO SCH (09:44)
[2022-03-05] MEDS: PRENATAL VITAMINS W/ FOLIC ACID TABLET (FP) PO SCH (09:45)
[2022-03-05] MEDS: METHOCARBAMOL 500 MG TABLET PO PRN (09:45)
[2022-03-05] MEDS: LISINOPRIL 10 MG TABLET PO SCH (09:45)
[2022-03-05] MEDS: NICOTINE 14 MG/24 HOURS TOPICAL PATCH TD SCH (09:48)
[2022-03-05] MEDS: traZODone HCL 50 MG TABLET (FP) PO SCH (22:53)
[2022-03-05] MEDS: THIAMINE HCL 100 MG TABLET (FP) PO SCH (22:53)
[2022-03-05] MEDS: MELATONIN 5 MG TABLETS PO SCH (22:54)
[2022-03-06] MEDS: methaDONE HCL 40 MG DISPERSABLE TABLET PO SCH (05:45)
[2022-03-06] MEDS ORDERED: diazePAM 5 MG TABLET PO ONE (06:00)
[2022-03-06] MEDS: PRENATAL VITAMINS W/ FOLIC ACID TABLET (FP) PO SCH (09:52)
[2022-03-06] MEDS: NICOTINE 14 MG/24 HOURS TOPICAL PATCH TD SCH (09:52)
[2022-03-06] MEDS: LISINOPRIL 10 MG TABLET PO SCH (09:52)
[2022-03-06 09:56] VITALS: BP 161/75; PULSE 91; RESP 16; TEMP 96.8
== END 2022-03-06 10:50 | disposition other institution (70) | DRG 773 ==
LOC: YASAS 12:39 → Y6N 17:35
PROVIDERS: ADMIT Allergy & Immunology; ATTEND Surgery
PROC: HZ2ZZZZ Detoxification Services for Substance Abuse Treatment (ICD-10-PCS; principal; 2022-03-01)
DX: F13.230 Sedative, hypnotic or anxiolytic dependence with withdrawal, uncomplicated (principal); F11.20 Opioid dependence, uncomplicated; F14.20 Cocaine dependence, uncomplicated; F12.20 Cannabis dependence, uncomplicated; F17.210 Nicotine dependence, cigarettes, uncomplicated; F19.24 Other psychoactive substance dependence with psychoactive substance-induced mood disorder; G47.00 Insomnia, unspecified; I10 Essential (primary) hypertension; J45.20 Mild intermittent asthma, uncomplicated; E11.9 Type 2 diabetes mellitus without complications; Z79.84 Long term (current) use of oral hypoglycemic drugs; E66.01 Morbid (severe) obesity due to excess calories; Z68.41 Body mass index [BMI] 40.0-44.9, adult; Z56.0 Unemployment, unspecified; Z59.01 Sheltered homelessness
CPT/HCPCS: 36415; 80053; 82962; 83036; 85027; 86780; 87811; C9803-CS; U0003; U0005